=== PATIENT | female | born 1940 | race Caucasian/White ===

== ENCOUNTER 2016-05-16 22:05 | Inpatient (IN) ==
[2016-05-16] MEDS ORDERED: 0.9 % Sodium Chloride 1,000 ML IVC ONE (22:42)
[2016-05-16] MEDS ORDERED: Ondansetron 4 MG/2 ML VIAL IVP ONE (22:42)
--- NOTE | 2016-05-16 22:47 | Emergency Department Note ---
Disposition Clinical Impression: Abdominal pain with vomiting Disposition: Still a Patient Condition: Fair Referrals: NO,PCP [Primary Care Provider] - Forms: Work/School Release, ED Satisfaction Letter Abdominal Pain HPI - General Chief Complaint: ED Abdominal Pain Stated Complaint: Abd Pain/Chest Pain Time Seen by Provider: 05/16/16 22:42 Source: patient, EMS Limitations: no limitations Nursing Notes Reviewed: Yes Vital Signs Reviewed: Yes - History of Present Illness HPI Narrative: Patient to the emergency department complaining of abdominal pain and vomiting. Started today. States she is vomiting food contents. Denies any blood in it. [place]. Denies fever. Patient states she has a history of gastric bypass surgery 15 years ago. Also has a history of a cholecystectomy and an appendectomy. Pain Scale: 10 - Related Data Home Medications Medication Instructions Recorded Confirmed Albuterol Sulfate [Proair 2 puff IH DAILY PRN 05/26/15 05/26/15 Respiclick] Cyclobenzaprine HCl [Fexmid] 7.5 mg PO TID PRN 05/26/15 05/26/15 Docusate Sodium [Colace] 200 mg PO BID PRN 05/26/15 05/26/15 Ferrous Gluconate 324 mg PO QAM 05/26/15 05/26/15 Lisinopril [Zestril] 40 mg PO QAM 05/26/15 05/26/15 Montelukast [Singulair] 10 mg PO QPM 05/26/15 05/26/15 Omeprazole [PriLOSEC] 40 mg PO BID 05/26/15 05/26/15 Ondansetron [Zofran] 8 mg PO DAILY PRN 05/26/15 05/26/15 TraMADol [Ultram] 50 mg PO TID PRN 05/26/15 05/26/15 Trazodone HCl [Oleptro ER] 150 mg PO HS PRN 05/26/15 05/26/15 Allergies Allergy/AdvReac Type Severity Reaction Status Date / Time No Known Allergies Allergy Verified 02/21/15 09:37 All systems ED: reviewed and negative except as stated. Constitutional: Denies: fever Cardiovascular: Denies: chest pain Respiratory: Denies: dyspnea Gastrointestinal: Reports: abdominal pain, nausea, vomiting. Denies: diarrhea, hematemesis, melena, hematochezia Musculoskeletal: Denies: back pain, neck pain Abdominal Pain PMH - Past Medical History Medical history: Reports: cancer, GERD, hypertension, other Female Surgical History: Reports: knee replacement, orthopedic, other, other ( Gastric bypass) Psychiatric history: Reports: no psych history - Social History Smoking status: Never smoker Alcohol use: Reports: none Drug use: Reports: none Physical Exam Patient awake and alert. Uncomfortable. A moderate amount of epigastric tenderness. Dry cracked lips. - General Limitations: no limitations General appearance: alert, in no apparent distress - Head Head exam: atraumatic, normocephalic, normal inspection - Eye Eye exam: Present: normal appearance, PERRL, EOMI - ENT ENT exam: normal exam, normal oropharynx - Neck Neck exam: Present: normal inspection - Chest Chest inspection: Present: normal inspection, symmetric chest wall rise - Respiratory Respiratory exam: Present: normal lung sounds bilaterally - Cardiovascular Cardiovascular exam: Present: regular rate, normal rhythm, normal heart sounds - Abdominal Exam Abdominal exam: Present: soft, tenderness (Epigastric). Absent: distention - Neurological Exam Neurological exam: Present: alert, oriented X3, CN II-XII intact - Psychiatric Psychiatric exam: Present: normal affect, normal mood - Skin Skin exam: Present: warm, dry, intact Course Course Narrative: Patient uncomfortable. Nausea meds ordered. Abdominal labs with cardiac workup. CT. Patient will be signed out to police shift commander. Vital Signs Temperature 99.3 F 05/16/16 22:10 Pulse Rate 98 05/16/16 22:10 Respiratory Rate 18 05/16/16 22:10 Blood Pressure 162/111 05/16/16 22:10 O2 Sat by Pulse Oximetry 96 05/16/16 22:10 Temperature 99.3 F 05/16/16 22:10 Pulse Rate 98 05/16/16 22:10 Respiratory Rate 18 05/16/16 22:10 Blood Pressure 162/111 05/16/16 22:10 O2 Sat by Pulse Oximetry 96 05/16/16 22:10 Oxygen Delivery Oxygen Delivery Room Air
[2016-05-16] MEDS ORDERED: *HR* FentaNYL (PF) 100 MCG/2 ML VIAL IV ONE (22:55)
[2016-05-16 23:09] LABS: Basophils % 0.4 %; Eosinophils # 0.1 K/mcL (0.0-0.6); Hematocrit 41.6 % (35.3-44.9); Hemoglobin 13.5 g/dL (11.5-15.4); Immature Granulocytes % 0.2 % (0-4); Lymphocytes # 0.8 K/mcL (0.6-4.6); Lymphocytes % 9.6 %; Mean Corpuscular HGB Conc 32.5 g/dL (31.6-35.5); Mean Corpuscular Hemoglobin 27.6 pg (28.0-33.3); Mean Corpuscular Volume 84.9 fL (83.0-100.0); Mean Platelet Volume 9.4 fL (9.4-12.4); Monocytes # 0.6 K/mcL (0.0-1.3); Monocytes % 7.7 %; Neutrophils # 6.6 K/mcL (1.6-8.9); Platelet Count 233 K/mcL (140-400); Red Cell Distribution Width 13.9 % (11.5-14.5); Segmented Neutrophils % 81.1 %
[2016-05-16 23:26] LABS: Alanine Aminotransferase 7 Units/L (0-55); Albumin 3.7 g/dL (3.5-5.0); Alkaline Phosphatase 95 Units/L (38-126); Amylase 47 Units/L (25-125); Aspartate Amino Transferase 19 Units/L (5-34); BUN/Creatinine Ratio 20 (6-26); Bilirubin,Direct 0.2 mg/dL (0.0-0.5); Bilirubin,Indirect 0.3 mg/dL (0.0-1.2); Bilirubin,Total 0.5 mg/dL (0.2-1.2); Blood Urea Nitrogen 15 mg/dL (7-20); Calcium 9.2 mg/dL (8.6-10.8); Carbon Dioxide 25 mEq/L (19-29); Chloride 102 mEq/L (98-109); Globulin 3.6 g/dL (2.4-3.5); Glucose 133 mg/dL (70-99); Lipase 6 Units/L (8-78); Osmolality,Calculated 289 (280-300); Potassium 3.8 mEq/L (3.5-4.5); Sodium 138 mEq/L (136-145); Total Protein 7.3 g/dL (6.0-8.3); eGFR For African Americans > 60 (> 60); eGFR For Non-African Americans > 60 (> 60)
[2016-05-17] MEDS ORDERED: *HR* FentaNYL (PF) 100 MCG/2 ML VIAL IVP ONE (01:24)
--- NOTE | 2016-05-17 01:43 | Emergency Department Note ---
Disposition Clinical Impression: Abdominal pain with vomiting, Small bowel obstruction Disposition: Admitted As Inpatient Condition: Fair Time of Disposition: 01:52 Abdominal Pain HPI - General Chief Complaint: ED Abdominal Pain Stated Complaint: Abd Pain/Chest Pain Time Seen by Provider: 05/16/16 22:42 Source: patient, EMS Nursing Notes Reviewed: Yes Vital Signs Reviewed: Yes - History of Present Illness Pain Scale: 10 - Related Data Home Medications Medication Instructions Recorded Confirmed Albuterol Sulfate [Proair 2 puff IH DAILY PRN 05/26/15 05/26/15 Respiclick] Cyclobenzaprine HCl [Fexmid] 7.5 mg PO TID PRN 05/26/15 05/26/15 Docusate Sodium [Colace] 200 mg PO BID PRN 05/26/15 05/26/15 Ferrous Gluconate 324 mg PO QAM 05/26/15 05/26/15 Lisinopril [Zestril] 40 mg PO QAM 05/26/15 05/26/15 Montelukast [Singulair] 10 mg PO QPM 05/26/15 05/26/15 Omeprazole [PriLOSEC] 40 mg PO BID 05/26/15 05/26/15 Ondansetron [Zofran] 8 mg PO DAILY PRN 05/26/15 05/26/15 TraMADol [Ultram] 50 mg PO TID PRN 05/26/15 05/26/15 Trazodone HCl [Oleptro ER] 150 mg PO HS PRN 05/26/15 05/26/15 Allergies Allergy/AdvReac Type Severity Reaction Status Date / Time No Known Allergies Allergy Verified 02/21/15 09:37 Constitutional: Denies: fever Cardiovascular: Denies: chest pain Respiratory: Denies: dyspnea Gastrointestinal: Reports: abdominal pain, nausea, vomiting. Denies: diarrhea, hematemesis, melena, hematochezia Musculoskeletal: Denies: back pain, neck pain Abdominal Pain PMH - Past Medical History Medical history: Reports: cancer, GERD, hypertension, other Female Surgical History: Reports: knee replacement, orthopedic, other, other ( Gastric bypass) Psychiatric history: Reports: no psych history - Social History Smoking status: Never smoker Alcohol use: Reports: none Drug use: Reports: none Physical Exam - General Limitations: no limitations General appearance: alert, in no apparent distress Course Course Narrative: Do to shift change, I took over care of this patient from patient. Please see her there earlier documentation for details. Patient had presented with 2 day history of abdominal pain and vomiting of food contents. Her surgical history includes a gastric bypass. [facility] had ordered lab work and CT scan which is pending. Patient's pain nausea has been controlled - Reevaluation(s) Reevaluation #1: Patient mentioned return of pain and nausea. Analgesics and antiemetics ordered. Discussed results of CT scan with patient and family. Evidence for small bowel obstruction. I informed patient of likely surgery consult and admission to hospital. Patient had mentioned she is a patient of Dr. Juarez who she has seen 2 months ago for removal of a breast mass, and patient had requested Dr. Juarez. In anticipation of needed surgical consult prior to admission, Dr. Juarez was paged, and specified to admit patient to hospitalist and for him to be consulted. Time: 01:43 Reevaluation #2: Patient discussed and accepted by hospitalist Dr. Hall who agreed to accept patient. Time: 01:51 - Consultations Consultation #1: patient is a patient of Dr. Juarez. who was paged, and specified to admit patient to hospitalist and for him to be consulted. Vital Signs Temperature 99.3 F 05/16/16 22:10 Pulse Rate 98 05/16/16 22:10 Respiratory Rate 18 05/16/16 22:10 Blood Pressure 162/111 05/16/16 22:10 O2 Sat by Pulse Oximetry 96 05/16/16 22:10 Temperature 98.0 F 05/17/16 06:33 Pulse Rate 86 05/17/16 06:33 Respiratory Rate 16 05/17/16 06:33 Blood Pressure 142/84 05/17/16 06:33 O2 Sat by Pulse Oximetry 94 L 05/17/16 06:33 Oxygen Delivery Oxygen Delivery Room Air Abdominal Pain - Lab Data Lab results reviewed: Yes I reviewed the patient's lab results. Result diagrams: 05/16/16 23:01 05/16/16 23:01 Lab Results 05/16/16 05/16/16 05/16/16 Range/Units 23:01 23:01 23:01 WBC 8.2 (4.3-11.1) K/mcL RBC 4.90 (3.82-4.97) M/mcL Hgb 13.5 (11.5-15.4) g/dL Hct 41.6 (35.3-44.9) % MCV 84.9 (83.0-100.0) fL MCH 27.6 L (28.0-33.3) pg MCHC 32.5 (31.6-35.5) g/dL RDW 13.9 (11.5-14.5) % Plt Count 233 (140-400) K/mcL MPV 9.4 (9.4-12.4) fL Immature Gran % 0.2 (0-4) % Seg Neutrophils % 81.1 % Lymphocytes % 9.6 % Monocytes % 7.7 % Eosinophils % 1.0 % Basophils % 0.4 % Neutrophils # 6.6 (1.6-8.9) K/mcL Lymphocytes # 0.8 (0.6-4.6) K/mcL Monocytes # 0.6 (0.0-1.3) K/mcL Eosinophils # 0.1 (0.0-0.6) K/mcL Basophils # 0.0 (0.0-0.2) K/mcL Sodium 138 (136-145) mEq/L Potassium 3.8 (3.5-4.5) mEq/L Chloride 102 (98-109) mEq/L Carbon Dioxide 25 (19-29) mEq/L BUN 15 (7-20) mg/dL Creatinine 0.76 (0.57-1.11) mg/dL Est GFR ( Amer) > 60 (> 60) Est GFR (Non-Af Amer) > 60 (> 60) BUN/Creatinine Ratio 20 (6-26) Glucose 133 H (70-99) mg/dL Calculated Osmolality 289 (280-300) Lactic Acid 0.7 (0.5-2.2) mmol/L Calcium 9.2 (8.6-10.8) mg/dL Total Bilirubin 0.5 (0.2-1.2) mg/dL Direct Bilirubin 0.2 (0.0-0.5) mg/dL Indirect Bilirubin 0.3 (0.0-1.2) mg/dL AST 19 (5-34) Units/L ALT 7 (0-55) Units/L Alkaline Phosphatase 95 (38-126) Units/L Troponin I (0-0.03) ng/mL Serum Total Protein 7.3 (6.0-8.3) g/dL Albumin 3.7 (3.5-5.0) g/dL Globulin 3.6 H (2.4-3.5) g/dL Albumin/Globulin Ratio 1.0 L (1.1-2.2) Amylase 47 (25-125) Units/L Lipase 6 L (8-78) Units/L //17 Range/Units 23:01 WBC (4.3-11.1) K/mcL RBC (3.82-4.97) M/mcL Hgb (11.5-15.4) g/dL Hct (35.3-44.9) % MCV (83.0-100.0) fL MCH (28.0-33.3) pg MCHC (31.6-35.5) g/dL RDW (11.5-14.5) % Plt Count (140-400) K/mcL MPV (9.4-12.4) fL Immature Gran % (0-4) % Seg Neutrophils % % Lymphocytes % % Monocytes % % Eosinophils % % Basophils % % Neutrophils # (1.6-8.9) K/mcL Lymphocytes # (0.6-4.6) K/mcL Monocytes # (0.0-1.3) K/mcL Eosinophils # (0.0-0.6) K/mcL Basophils # (0.0-0.2) K/mcL Sodium (136-145) mEq/L Potassium (3.5-4.5) mEq/L Chloride (98-109) mEq/L Carbon Dioxide (19-29) mEq/L BUN (7-20) mg/dL Creatinine (0.57-1.11) mg/dL Est GFR ( Amer) (> 60) Est GFR (Non-Af Amer) (> 60) BUN/Creatinine Ratio (6-26) Glucose (70-99) mg/dL Calculated Osmolality (280-300) Lactic Acid (0.5-2.2) mmol/L Calcium (8.6-10.8) mg/dL Total Bilirubin (0.2-1.2) mg/dL Direct Bilirubin (0.0-0.5) mg/dL Indirect Bilirubin (0.0-1.2) mg/dL AST (5-34) Units/L ALT (0-55) Units/L Alkaline Phosphatase (38-126) Units/L Troponin I 0.01 (0-0.03) ng/mL Serum Total Protein (6.0-8.3) g/dL Albumin (3.5-5.0) g/dL Globulin (2.4-3.5) g/dL Albumin/Globulin Ratio (1.1-2.2) Amylase (25-125) Units/L Lipase (8-78) Units/L - Radiology Data Radiology results reviewed: Yes I reviewed the patient's radiology results. Attestation Statement - Attestation Attestation: For this encounter, I have reviewed the resident, WAIVER ANALYST, or PA documentation, treatment plan, and medical decision making; and I have had face to face time with this patient. 76-year-old female presents with acute episodes of nausea and vomiting and abdominal pain. Patient states she is unable to keep down any food or fluids. Vomited multiple times today described as nonbilious and nonbloody. Abdomen is distended and tympanic. Patient has history of multiple surgeries in the past. CT of the abdomen shows small bowel obstruction. Patient admitted to the hospital for further care and evaluation. PA spoke with surgeon who recommended admission to hospitalist
[2016-05-17] MEDS ORDERED: Naloxone 0.4 MG/ML INJ IVP PRN (01:50)
[2016-05-17] MEDS: Ondansetron 4 MG/2 ML VIAL IVP PRN ×4 (02:17→20:31)
--- NOTE | 2016-05-17 02:54 | Internal Med History&Physical ---
Date of Encounter: 05/17/16 Time of Encounter: 03:31 Assessment and Plan (1) Small bowel obstruction Current visit: Yes Status: Acute Patient presents with sudden onset abdominal pain associated with nausea and vomiting. She has a history of small bowel obstruction the past. Examination reveals hyperactive bowel sounds and tenderness to palpation in the right lumbar region. CT scan evidence of small bowel obstruction with a transition point in the right lower quadrant. Patient will be admitted to inpatient status. Expect the patient to stay in the hospital at least 2 midnights. Expected discharge disposition is to home. Patient is high risk due to possible need for surgical intervention if she does not respond to conservative management. Surgery consultation-Dr. burton was informed of the patient by the emergency room physician. Bowel rest. Intravenous fluids and proton pump inhibitor. Pain control and Zofran when necessary. (2) GERD (gastroesophageal reflux disease) Current visit: Yes Status: Chronic Proton pump inhibitor intravenous daily Qualifiers: Esophagitis presence: esophagitis presence not specified Qualified Code(s) : K21.9 - Gastro-esophageal reflux disease without esophagitis (3) HTN (hypertension) Current visit: Yes Status: Chronic Control blood pressure. Hold antihypertensives by mouth. If BP is uncontrolled, will consider hydralazine IV and/or clonidine patch. Qualifiers: Hypertension type: essential hypertension Qualified Code(s): I10 - Essential (primary) hypertension Internal Medicine - H&P: HPI Chief complaint: Abdominal pain Admitted From: Emergency Dept Plans for Post Hospital Care: Home History of present illness: Ms. Sexton is a 76 year old female with a history of gastric bypass surgery presented to the hospital due to abdominal pain. Patient states that she had sudden onset abdominal pain on Tuesday later in the day of 02/22 in intensity that is diffuse without any radiation. This was associated with nausea and she had an episode of emesis which was limited in quantity. She has not had a bowel movement in over 3 days. The pain has been constant in her abdomen. It was partly relieved by fentanyl that was given to her in the emergency room. She denies passing gas. Denies any chest pain, shortness of breath, cough or wheezing. Denies any fever or chills. Past Med Surg Social Fam HX - Past Medical History Attestation: Yes The following information was validated with the patient. Source: patient Medical history: cancer, GERD, hypertension, other Psychiatric history: no psych history - Past Surgical History Surgical History: appendectomy, breast surgery, cholecystectomy, hysterectomy, orthopedic, other (2 knee surgeries and left shoulder surgery), other - Social History Smoking Status: Never smoker Smokeless Tobacco Status: No Alcohol use: none Drug use: none - Family History Brother Family Member Ethnicity: Non- Living Status: Hx Family Cardiac Disorders: Yes Hx Family Respiratory Disorders: No Hx Family Cancer: Yes Hx Family GI Disorders: No Hx Family Endocrine Disorder: No Hx Family Neuromuscular Disorders: No Hx Family Neurologic Disorders: No Hx Family HEENT Disorders: No Hx Family Autoimmune Disorders: No Internal Medicine - H&P: Meds Albuterol Sulfate [Proair Respiclick] 2 puff IH DAILY PRN 05/26/15 [History] Cyclobenzaprine HCl [Fexmid] 7.5 mg PO TID PRN 05/26/15 [History] Docusate Sodium [Colace] 200 mg PO BID PRN 05/26/15 [History] Ferrous Gluconate 324 mg PO QAM 05/26/15 [History] Lisinopril [Zestril] 40 mg PO QAM 05/26/15 [History] Montelukast [Singulair] 10 mg PO QPM 05/26/15 [History] Omeprazole [PriLOSEC] 40 mg PO BID 05/26/15 [History] Ondansetron [Zofran] 8 mg PO DAILY PRN 05/26/15 [History] TraMADol [Ultram] 50 mg PO TID PRN 05/26/15 [History] Trazodone HCl [Oleptro ER] 150 mg PO HS PRN 05/26/15 [History] Allergies No Known Allergies Allergy (Verified 02/21/15 09:37) All Systems PM: A 10-system review of systems was performed and is negative for pertinent findings except as documented above in the HPI. Review of systems: 10 systems have been reviewed and are negative except as mentioned in the history of present illness - Constitutional Vitals: Temp Pulse Resp BP Pulse Ox 99.3 F 82 16 141/94 97 05/16/16 22:10 05/17/16 02:39 05/17/16 02:39 05/17/16 02:39 05/17/16 02:39 Exam: Gen.: Lying in bed. Mild distress. Eyes: Pupils equal, round and reactive to light. Extraocular muscles intact. ENT: Moist mucous membranes. No oropharyngeal erythema or discharge. Chest: Clear to auscultation bilaterally. No adventitious sounds present. CVS: First and second heart sounds present. No murmurs, rubs or gallops. Abdomen: Soft, tenderness to palpation in the right lumbar region without rebound tenderness, guarding or rigidity; nondistended. Bowel sounds hyperactive. No hepatosplenomegaly. Skin: No decubitus ulcers appreciated. ENTRY LEVEL MARKETING REPRESENTATIVE: No focal neuro deficits present. Psychiatric: Alert, awake and oriented to time, place and person. Lymphatic system: No lymphadenopathy appreciated Internal Med - H&P Results - Labs CBC & Chem 7: 05/16/16 23:01 05/16/16 23:01 - Diagnostic Studies CT scan - abdomen Status: image reviewed by me (SBO)
[2016-05-17] MEDS: Potassium Chloride 10 MEQ in D5% in 0.9% NACL 1,000 ML IVC SCH ×2 (04:07→16:42)
[2016-05-17 05:14] LABS: Hemoglobin A1C 5.7 %
[2016-05-17] MEDS: Pantoprazole 40 MG VIAL IVP SCH (08:46)
[2016-05-17] MEDS: *HR* HYDROmorphone (PF) 1 MG/ML SYRINGE IVP PRN ×3 (10:03→20:25)
--- NOTE | 2016-05-17 10:39 | Electrocardiograph Report ---
[facility] Test Date: 2016-05-16 Pat Name: Maria Esther Sexton Department: 103 Room: 3A56 Gender: F [employer] Management Technician: JUAN CARLOS : 1940 Requested By: Tabatha See Order Number: [id number] Reading MD: Arsalan Jones DO Measurements Intervals [place] Rate: 97 P: 48 CA: 154 QRS: -10 QRSD: 101 T: 20 QT: 366 QTc: 420 Interpretive Statements Sinus rhythm Nonspecific ST-T changes Electronically Signed On 05-17-16 10:38:38 EST by Arsalan Jones DO
--- NOTE | 2016-05-17 12:09 | General Surgery Consult Note ---
Date of Encounter: 05/17/16 Time of Encounter: 11:42 History of Present Illness Reason for consult: abdominal pain (Radiologic evidence SBO) Requesting physician: Homer Hall History of present illness: 76-year-old female admitted to [facility] after presenting to the emergency department last evening with abdominal pain and vomiting. Patient indicates symptoms started abruptly 05/15/16 and continued thru the following day prompting her to present to [facility] ED for further evaluation and possible treatment. The evaluation included bloodwork which was nondiagnostic, and a CT abdomen/pelvis which demonstrated dilated proximal small bowel with an apparent transition point proximal ileum/right lower quadrant. Patient presented with similar complaints 05/26/15, with similar CT findings but the symptoms abated without surgical intervention. A small bowel follow-through, 05/27/15, demonstrated persistent dilated loops of proximal small bowel but on the following day enteric contrast was seen in the left colon. As the patient did not wish any surgical intervention, and the acute symptoms resolved, the patient was discharged home 05/30/2015. The patient has not had any recurrent GI symptoms until 05/15/2016. Past medical history: Morbid obesity; Breast cancer; gastroesophageal reflux disease/PUD; hypertension; osteoarthritis with chronic joint pain Surgical history: Gastric bypass, appendectomy, right breast lumpectomy with follow-up radiation; cholecystectomy, bilateral knee TKR, right rotator cuff repair, left hand surgery and kidney stone removal Allergies: No known drug allergies Medications: Albuterol (pro-air) 2 puffs daily as needed Cyclobenzaprine 7.5 mg by mouth 3 times a day when necessary Docusate 200 mg by mouth twice a day when necessary Ferrous gluconate 324 mg by mouth every morning Lisinopril 40 mg by mouth every morning Singulair 10 mg by mouth every afternoon Omeprazole 40 mg by mouth twice a day Zofran 8 mg by mouth daily as needed for nausea or vomiting Tramadol 50 mg by mouth 3 times a day as needed for pain Trazodone 150 mg by mouth daily at bedtime when necessary Social history: Patient has never smoked, denies alcohol or illicit drug use Physical examination: Elderly, age-appropriate woman resting comfortably in her hospital bed. The patient indicates that she is feeling better since her presentation to the emergency department. Denies any recurrent nausea or vomiting but continues to have right lower quadrant abdominal tenderness. Patient is afebrile, 98.0; pulse 86, respirations 16, blood pressure 142/84. SPO2 on room air 94-97% Lungs: Clear to auscultation Cardiac: Regular rate, soft 1-2/6 systolic ejection murmur Abdomen: Tender right lower quadrant without distention. No appreciable intra-abdominal masses or rebound. Active bowel sounds. The patient indicates that she is passing flatus this morning. Extremities: No obvious clubbing cyanosis or edema. Impression: 76-year-old female admitted to [facility] after presenting to the emergency department with recurrent abdominal pain and nausea/vomiting. Patient has radiologic findings suggestive of a small bowel obstruction consistent with the patient's clinical presentation. These findings are similar to those for which the patient was admitted approx 1 year ago. The recurrent symptoms likely related to the pateint's prior gastric bypass with internal adhesions resulting in at least a partial SBO. The patient is feeling better and wishes to avoid surgery if possible. Plan: Allow clear liquids may resume usual home meds monitor for recurrent / worsening abdominal pain, N/V, abdominal distention. If symptoms worsen/recur then surgical intervention will be discussed. If symptoms resolve, will defer surgical intervention per the patient's wishes. Thank you for this consultation, I will follow along with you. Past Med Surg Social Fam HX - Past Medical History Medical history: cancer, GERD, hypertension, other Psychiatric history: no psych history - Past Surgical History Surgical History: appendectomy, breast surgery, cholecystectomy, hysterectomy, orthopedic, other (2 knee surgeries and left shoulder surgery), other - Social History Smoking Status: Never smoker Smokeless Tobacco Status: No Alcohol use: none Drug use: none - Family History Brother Family Member Ethnicity: Non- Living Status: Hx Family Cardiac Disorders: Yes Hx Family Respiratory Disorders: No Hx Family Cancer: Yes Hx Family GI Disorders: No Hx Family Endocrine Disorder: No Hx Family Neuromuscular Disorders: No Hx Family Neurologic Disorders: No Hx Family HEENT Disorders: No Hx Family Autoimmune Disorders: No Medications and Allergies Albuterol Sulfate [Proair Respiclick] 2 puff IH DAILY PRN 05/26/15 [History] Cyclobenzaprine HCl [Fexmid] 7.5 mg PO TID PRN 05/26/15 [History] Docusate Sodium [Colace] 200 mg PO BID PRN 05/26/15 [History] Ferrous Gluconate 324 mg PO QAM 05/26/15 [History] Lisinopril [Zestril] 40 mg PO QAM 05/26/15 [History] Montelukast [Singulair] 10 mg PO QPM 05/26/15 [History] Omeprazole [PriLOSEC] 40 mg PO BID 05/26/15 [History] Ondansetron [Zofran] 8 mg PO DAILY PRN 05/26/15 [History] TraMADol [Ultram] 50 mg PO TID PRN 05/26/15 [History] Trazodone HCl [Oleptro ER] 150 mg PO HS PRN 05/26/15 [History] Allergies No Known Allergies Allergy (Verified 02/21/15 09:37) Review of Systems All systems PM: A 10-system review of systems was performed and is negative for pertinent findings except as documented above in the HPI. General Surgery Exam Initial Vital Signs Temp Pulse Resp BP Pulse Ox 99.3 F 98 18 162/111 96 05/16/16 22:10 05/16/16 22:10 05/16/16 22:10 05/16/16 22:10 05/16/16 22:10 Exam Initial Vital Signs Temp Pulse Resp BP Pulse Ox 99.3 F 98 18 162/111 96 05/16/16 22:10 05/16/16 22:10 05/16/16 22:10 05/16/16 22:10 05/16/16 22:10 Results - Labs 05/16/16 23:01 05/16/16 23:01 Abnormal lab results MCH 27.6 pg (28.0-33.3) L 05/16/16 23:01 Glucose 133 mg/dL (70-99) H 05/16/16 23:01 POC Glucose 121 (58-89) H 05/17/16 07:43 Hemoglobin A1c 5.7 % (-5.6) H 05/17/16 03:40 Globulin 3.6 g/dL (2.4-3.5) H 05/16/16 23:01 Albumin/Globulin Ratio 1.0 (1.1-2.2) L 05/16/16 23:01 Lipase 6 Units/L (8-78) L 05/16/16 23:01 Diabetes panel 01/02/17 Range/Units 03:40 Hemoglobin A1c 5.7 H ( - 5.6) % All other labs normal. Consult Discharge Plan - Plan Referrals: Josep Whiteside DO [Primary Care Provider] -
[2016-05-17 12:23] LABS: Bilirubin,Urine Negative (Negative); Blood,Urine Negative (Negative); Clarity,Urine Clear (Clear); Color,Urine Yellow (Yellow); Glucose,Urine (UA) Normal (Normal); Ketones,Urine Negative (Negative); Leukocyte Esterase,Urine Negative (Negative); Nitrite,Urine Negative (Negative); PH,Urine 5.5 pH Units (5.0-8.0); Protein,Urine Negative (Neg-Trace); Specific Gravity,Urine > 1.030 (1.010-1.025); Urobilinogen,Urine Normal (Normal)
--- NOTE | 2016-05-17 17:55 | Internal Med Progress Note ---
Date of Encounter: 05/17/16 Time of Encounter: 11:00 - Assessment and plan (1) Abdominal pain with vomiting Current Visit: Yes Status: Acute Assessment and plan: Probably caused by small bowel obstruction. Will continue nothing by mouth, IV fluid, closely monitor patient. (2) Small bowel obstruction Current Visit: Yes Status: Acute Assessment and plan: Etiology is undetermined. Patient has history of multiple intra-abdominal surgery. Surgical consult called and saw patient. Patient is at high risk because she has small bowel obstruction, which are possibly need a surgical intervention. (3) HTN (hypertension) Current Visit: Yes Status: Chronic Assessment and plan: Medication is on hold because of nothing by mouth. BP is stable Qualifiers: Hypertension type: essential hypertension Qualified Code(s): I10 - Essential (primary) hypertension (4) DVT prophylaxis Current Visit: No Status: Acute Assessment and plan: EPCD - Time Spent With Patient Greater than 35 minutes - Subjective Interval history: Patient is a 76-year-old female admitted for small bowel obstruction. Past medical history is significant for similar small bowel obstruction before, bariatric surgery, and hysterectomy. Patient was seen and examined. This morning when I saw her she is comfortable without any acute distress. She told me she passed gas. She was given a clear liquid diet trial during lunch. She seems cannot tolerate diet and has worsened abdominal pain and the nausea in the afternoon. We will hold diet, keep IV fluid. Try to insert an NG tube but patient cannot tolerate. Surgical consult on case and appreciated. Will keep nothing by mouth, IV fluid, closely monitor patient's symptoms, possible need to try NG tube again or surgical intervention. - Constitutional Vitals: Temp Pulse Resp BP Pulse Ox 98.3 F 89 16 138/86 95 05/17/16 15:22 05/17/16 15:22 05/17/16 15:22 05/17/16 15:22 05/17/16 15:22 General appearance: Present: mild distress, A&O X 3, answers questions appropriately - Head Head exam: Present: atraumatic, normocephalic - Eye Eye exam: Present: PERRL, conjuntiva pink, sclera anicteric Pupils: Present: PERRL - Neck Neck exam general surgery: Present: supple, trachea midline. Absent: lymphadenopathy - Respiratory Respiratory exam: Present: CTAB. Absent: accessory muscle use, rales, rhonchi, wheezes - Cardiovascular Cardiovascular exam: Present: RRR, +S1, +S2. Absent: diastolic murmur, gallop, rubs, systolic murmur - GI/Abdominal GI/Abdominal exam: Present: normal bowel sounds, soft, tenderness, no peritoneal signs. Absent: distended - Extremities Exam Extremities exam: Present: warm, radial pulses palpable and symetrical. Absent : calf tenderness, cyanotic, pedal edema - Neurological Exam Neurological exam: Present: CN II-XII intact, oriented X3, no focal deficits. Absent: pronater drift, facial droop, speech deficit - Skin Skin exam: Present: dry, intact Internal Medicine: Result - Labs CBC & Chem 7: 05/16/16 23:01 05/16/16 23:01 Labs: Urine 05/17/16 Range/Units 12:00 Urine Color Yellow (Yellow) Urine Clarity Clear (Clear) Urine pH 5.5 (5.0-8.0) pH Units Ur Specific [place] > 1.030 H (1.010-1.025) Urine Protein Negative (Neg-Trace) mg/dL Urine Glucose (UA) Normal (Normal) mg/dL Consult Discharge Plan - Plan Referrals: Josep Whiteside DO [Primary Care Provider] -
[2016-05-18] MEDS: Ondansetron 4 MG/2 ML VIAL IVP PRN ×3 (02:39→10:49)
[2016-05-18] MEDS: *HR* HYDROmorphone (PF) 1 MG/ML SYRINGE IVP PRN ×10 (02:40→23:50)
[2016-05-18 06:11] LABS: Basophils % 0.3 %; Eosinophils # 0.1 K/mcL (0.0-0.6); Hematocrit 38.2 % (35.3-44.9); Immature Granulocytes % 0.7 % (0-4); Lymphocytes # 0.9 K/mcL (0.6-4.6); Lymphocytes % 14.4 %; Mean Corpuscular HGB Conc 31.4 g/dL (31.6-35.5); Mean Corpuscular Hemoglobin 27.4 pg (28.0-33.3); Mean Corpuscular Volume 87.2 fL (83.0-100.0); Monocytes # 0.6 K/mcL (0.0-1.3); Monocytes % 9.5 %; Neutrophils # 4.5 K/mcL (1.6-8.9); Platelet Count 226 K/mcL (140-400); Red Blood Count 4.38 M/mcL (3.82-4.97); Red Cell Distribution Width 14.2 % (11.5-14.5); Segmented Neutrophils % 74.1 %
[2016-05-18 06:35] LABS: BUN/Creatinine Ratio 16 (6-26); Blood Urea Nitrogen 9 mg/dL (7-20); Calcium 8.3 mg/dL (8.6-10.8); Carbon Dioxide 22 mEq/L (19-29); Chloride 111 mEq/L (98-109); Glucose 131 mg/dL (70-99); Osmolality,Calculated 290 (280-300); Potassium 3.9 mEq/L (3.5-4.5); Sodium 140 mEq/L (136-145); eGFR For African Americans > 60 (> 60); eGFR For Non-African Americans > 60 (> 60)
[2016-05-18] MEDS: Potassium Chloride 10 MEQ in D5% in 0.9% NACL 1,000 ML IVC SCH ×2 (06:35→17:04)
[2016-05-18] MEDS: Pantoprazole 40 MG VIAL IVP SCH (09:03)
--- NOTE | 2016-05-18 12:52 | General Surgery Progress Note ---
Date of Encounter: 05/18/16 Time of Encounter: 12:30 Subjective Patient reports: still having pain, nausea Narrative: General Surgery: The patient complaining of severe right lower quadrant abdominal pain, indicates that she is feeling poorly. She has been nauseated but has not vomited. She has not eaten and has received more ingested anything by mouth due to the abdominal pain. The patient remains afebrile, 97.4, pulse 86, respirations 16, blood pressure 165/90. SPO2 on 2 L per nasal cannula 97 and 99% Lungs: Clear to auscultation Abdomen: Tender in the right lower quadrant with a non-distinct mass; bowel sounds are active. Laboratories: White count 6.0, hemoglobin 12.0 with hematocrit 38.2 (the recent fall in hemoglobin and hematocrit is related to IV fluids) Platelet count 226,000; differential within normal limits. Electrolytes, BUN, creatinine are within normal limits. Impression: 76-year-old female with persisting right lower quadrant abdominal pain and nausea. Radiologic evidence of small bowel obstruction is noted as has occurred previously, but, the persistent symptoms dictate that this episode is not resolving. Treatment options including exploratory celiotomy versus continued IV fluids, pain control and a possible small bowel follow-through. The patient is indicated a willingness to proceed with surgery. Surgery is deemed necessary. Procedures been discussed with the patient. Risks include hemorrhage, infection, intra-abdominal abscess, injury to adjacent structures, respiratory Failure, cardiac dysrhythmia and possible SD. We discussed the potential for a bowel obstruction with resultant ileostomy or colostomy. The patient expressed understanding and consent for surgery was given. Objective Vital Signs - Last 8 Hours Temp Pulse Resp BP Pulse Ox 05/18/16 10:00 97.4 F L 86 16 165/90 99 05/18/16 06:24 97.9 F 93 16 160/90 97 Intake and Output 05/17/16 05/18/16 05/18/16 23:59 07:59 15:59 Intake Total 1005 / 1005 1000 / 1000 Output Total 100 / 100 100 / 100 100 / 100 Balance 905 / 905 900 / 900 -100 / -100 Intake: IV Fluids 1005 / 1005 1000 / 1000 KCl 10 MEQ In D5% And 0.9 1005 / 1005 1000 / 1000 % Nacl 1000 Ml 1,000 ML @ 75 mls/hr IVC .[id number] [facility]AD[facility] Rx#:[id number] Output: Urine 100 / 100 100 / 100 100 / 100 Other: Meal NPO Stool Size Smear Stool Consistency loose Stool Characteristics Mucoid Stool Color Yellow # Bowel Movements 1 Weight 52.481 kg Patient Weight 05/18/16 23:59 Weight 52.481 kg - Labs 05/18/16 05:06 05/18/16 05:06 Diabetes panel 05/18/16 Range/Units 05:06 Sodium 140 (136-145) mEq/L Potassium 3.9 (3.5-4.5) mEq/L Chloride 111 H (98-109) mEq/L Carbon Dioxide 22 (19-29) mEq/L BUN 9 (7-20) mg/dL Creatinine 0.55 L (0.57-1.11) mg/dL Glucose 131 H (70-99) mg/dL Calcium 8.3 L (8.6-10.8) mg/dL Calcium panel 05/18/16 Range/Units 05:06 Calcium 8.3 L (8.6-10.8) mg/dL Pituitary panel 05/18/16 Range/Units 05:06 Sodium 140 (136-145) mEq/L Potassium 3.9 (3.5-4.5) mEq/L Chloride 111 H (98-109) mEq/L Carbon Dioxide 22 (19-29) mEq/L BUN 9 (7-20) mg/dL Creatinine 0.55 L (0.57-1.11) mg/dL Glucose 131 H (70-99) mg/dL Calcium 8.3 L (8.6-10.8) mg/dL Adrenal panel 05/18/16 Range/Units 05:06 Sodium 140 (136-145) mEq/L Potassium 3.9 (3.5-4.5) mEq/L Chloride 111 H (98-109) mEq/L Carbon Dioxide 22 (19-29) mEq/L BUN 9 (7-20) mg/dL Creatinine 0.55 L (0.57-1.11) mg/dL Glucose 131 H (70-99) mg/dL Calcium 8.3 L (8.6-10.8) mg/dL - VTE Documentation of Mechanical Device: Intermittent pneumatic compression device Consult Discharge Plan - Plan Referrals: Josep Whiteside DO [Primary Care Provider] -
--- NOTE | 2016-05-18 13:11 | Anesthesia Evaluation PreOp ---
Date of Encounter: 05/18/16 Time of Encounter: 13:09 - Past History Planned Operation: Expl.Celiotomy RE: SBO Cardiac History: HTN (maintained on Lisinopril) Pulmonary History: Smoker (Never smoker), Asthma (maintaoined on Sinuglair) Other Medical History: GERD (maintained on Prilosec), Other (SBO this admission with hx of SBO. Hx of Breast Ca) Anesthesia History: No Prior Anesthetic Complications, Past Anesthesia (Gastric Bypass, Appy, Breast surgery, Darleen, Hyster, Knee surgery x 2, L-shoulder surgey ) Alcohol Use: none Drug use: none Medications and Allergies Albuterol Sulfate [Proair Respiclick] 2 puff IH DAILY PRN 05/26/15 [History] Docusate Sodium [Colace] 200 mg PO BID PRN 05/26/15 [History] Ferrous Gluconate 324 mg PO QAM 05/26/15 [History] Lisinopril [Zestril] 40 mg PO QAM 05/26/15 [History] Montelukast [Singulair] 10 mg PO QPM 05/26/15 [History] Omeprazole [PriLOSEC] 40 mg PO DAILY 05/26/15 [History] Ondansetron [Zofran] 4 mg PO BID PRN 05/26/15 [History] TraMADol [Ultram] 50 mg PO BID PRN 05/26/15 [History] Amoxicillin/Clavulanate [Augmentin] 875 mg PO BIDWM 05/17/16 [History] Cyanocobalamin (B-12) [Vitamin B12] 1,000 mcg SQ QMONTH 05/17/16 [History] Gabapentin [Neurontin] 100 mg PO HS 05/17/16 [History] Promethazine/Codeine [Phenergan/Codeine] 5 ml PO Q6HR PRN 05/17/16 [History] Allergies No Known Allergies Allergy (Verified 02/21/15 09:37) - Meds/Allergy Pre-op Review Medications Reviewed: Yes Allergies Reviewed: Yes Beta Blockers on Current Med List: No Anesthesia Results - Labs 05/18/16 05:06 05/18/16 05:06 Laboratory Results Impressions Abdomen/Pelvis CT 05/16/16 22:46 IMPRESSION: 1. Findings compatible with small bowel obstruction. Transition point in the right lower quadrant. 2. Stable biliary ductal dilation. D/ / 05/17/2016 07:11:13 Niko Mccarthy MD / boby Interpreting Provider: Niko Mccarthy MD X-Ray 05/18/16 09:52 IMPRESSION: Persistent small bowel obstruction. D/ / Deon Smith MD / Deon Smith MD Interpreting Provider: Deon Smith MD - Imaging EKG: image reviewed (97 bpm SR, minimal ST depression) Anesthesia Exam Vital Signs Temp Pulse Resp BP Pulse Ox 05/18/16 10:00 97.4 F L 86 16 165/90 99 05/18/16 06:24 97.9 F 93 16 160/90 97 05/18/16 03:21 98.1 F 86 12 130/82 94 L 05/17/16 23:33 97.8 F 87 16 145/89 95 05/17/16 20:15 97.5 F L 96 16 163/100 96 05/17/16 15:22 98.3 F 89 16 138/86 95 Intake and Output 05/17/16 05/18/16 05/18/16 23:59 07:59 15:59 Intake Total 1005 / 1005 1000 / 1000 Output Total 100 / 100 100 / 100 100 / 100 Balance 905 / 905 900 / 900 -100 / -100 Intake: IV Fluids 1005 / 1005 1000 / 1000 KCl 10 MEQ In D5% And 0.9 1005 / 1005 1000 / 1000 % Nacl 1000 Ml 1,000 ML @ 75 mls/hr IVC .[id number] [facility] Rx#:[id number] Output: Urine 100 / 100 100 / 100 100 / 100 Other: Meal NPO Stool Size Smear Stool Consistency loose Stool Characteristics Mucoid Stool Color Yellow # Bowel Movements 1 Weight 52.481 kg Patient Weight 05/18/16 23:59 Weight 52.481 kg - HEENT Pupil (Motor): Pupils equal, EOMI Mallampati: II Teeth: Edentulous Oral Opening: Greater than 3 - MINE WIRER LOC: Oriented MINE WIRER Motor: Normal RUE, Normal LUE, Normal RLE, Normal LLE, Normal Face MINE WIRER Sensory: Normal: RUE, LUE, RLE, LLE, Face - Cardiac Rhythm: Regular Murmur: None - Pulmonary Breath Sounds: bilateral Clear Respiratory Effort: Symmetrical Anesthesia Assess/Plan ASA Score: 3 (SBOm) Modified Kris Scale for Level of Consciousness: Cooperative, oriented, and tranquil Anesthetic Plan: General Monitoring Plan: Standard Monitors Recovery Plan: PACU Anes Supervising Prov Stmt: PT seen/evaluated, R&B Discussed, questions answered and consent obtained. Mireille Parekh MD
--- NOTE | 2016-05-18 13:39 | Internal Med Progress Note ---
Date of Encounter: 05/18/16 Time of Encounter: 10:30 - Assessment and plan (1) Small bowel obstruction Current Visit: Yes Status: Acute Assessment and plan: Acute small bowel obstruction. Repeat KUB x-ray done today shows persistent small bowel obstruction. Surgery on board. Plan for exploratory laparotomy. Surgery to take over care of the patient. We will be available for consultation. (2) HTN (hypertension) Current Visit: Yes Status: Chronic Assessment and plan: Blood pressure elevated today. Likely due to pain. Monitor blood pressure. Can use when necessary IV hydralazine for SBP greater than 160 as patient NPO. Qualifiers: Hypertension type: essential hypertension Qualified Code(s): I10 - Essential (primary) hypertension (3) DVT prophylaxis Current Visit: No Status: Acute - Subjective Interval history: Patient continues to have abdominal pain. Passing flatus but no bowel movements yet. No nausea or vomiting. Did not tolerate clear liquid diet. - Constitutional Vitals: Temp Pulse Resp BP Pulse Ox 97.4 F L 86 16 165/90 99 05/18/16 10:00 05/18/16 10:00 05/18/16 10:00 05/18/16 10:00 05/18/16 10:00 General appearance: Present: cooperative, A&O X 3, answers questions appropriately Exam: Moderate distress - Respiratory Respiratory exam: Present: CTAB. Absent: accessory muscle use, rales, rhonchi, wheezes - Cardiovascular Cardiovascular exam: Present: RRR, +S1, +S2. Absent: diastolic murmur, gallop, rubs, systolic murmur - GI/Abdominal GI/Abdominal exam: Present: diminished bowel sounds, soft, tenderness (In the epigastric and umbilical regions), no peritoneal signs - Extremities Exam Extremities exam: Present: warm, radial pulses palpable and symetrical. Absent : calf tenderness, cyanotic, pedal edema - Neurological Exam Neurological exam: Present: CN II-XII intact, oriented X3, no focal deficits. Absent: facial droop, speech deficit - Skin Skin exam: Present: dry, intact Internal Medicine: Result - Labs CBC & Chem 7: 05/18/16 05:06 05/18/16 05:06 Labs: Short CBC 05/18/16 Range/Units 05:06 WBC 6.0 (4.3-11.1) K/mcL Hgb 12.0 D (11.5-15.4) g/dL Hct 38.2 (35.3-44.9) % Plt Count 226 (140-400) K/mcL Neutrophils # 4.5 (1.6-8.9) K/mcL BMP 05/18/16 05:06 Sodium 140 Potassium 3.9 Chloride 111 H Carbon Dioxide 22 BUN 9 Creatinine 0.55 L Glucose 131 H Calcium 8.3 L - Impressions Impressions KUB X-Ray 05/18/16 09:52 IMPRESSION: Persistent small bowel obstruction. D/ / Deon Smith MD / Deon Smith MD Interpreting Provider: Deon Smith MD - VTE Documentation of Mechanical Device: Intermittent pneumatic compression device Consult Discharge Plan - Plan Referrals: Josep Whiteside DO [Primary Care Provider] - - Attending Attestation This document has been at least partially created by [employer] recognition technology by Dr. Díaz. Errors in grammar, wording or other phrases may exist. If errors are found after the documentation is signed, they will be addressed individually in the addendum section of this document when appropriate. Medical Decision Making - MDM Narrative Medical decision making narrative: High risk for complications due to persistent small bowel obstruction - Medical Records Medical records reviewed: Yes I reviewed the patient's medical records. - Lab Data Lab results reviewed: Yes I reviewed the patient's lab results. Result diagrams: 05/18/16 05:06 05/18/16 05:06 Lab Results 05/17/16 05/17/16 05/17/16 Range/Units 03:40 07:43 11:37 WBC (4.3-11.1) K/mcL RBC (3.82-4.97) M/mcL Hgb (11.5-15.4) g/dL Hct (35.3-44.9) % MCV (83.0-100.0) fL MCH (28.0-33.3) pg MCHC (31.6-35.5) g/dL RDW (11.5-14.5) % Plt Count (140-400) K/mcL MPV (9.4-12.4) fL Immature Gran % (0-4) % Seg Neutrophils % % Lymphocytes % % Monocytes % % Eosinophils % % Basophils % % Neutrophils # (1.6-8.9) K/mcL Lymphocytes # (0.6-4.6) K/mcL Monocytes # (0.0-1.3) K/mcL Eosinophils # (0.0-0.6) K/mcL Basophils # (0.0-0.2) K/mcL Sodium (136-145) mEq/L Potassium (3.5-4.5) mEq/L Chloride (98-109) mEq/L Carbon Dioxide (19-29) mEq/L BUN (7-20) mg/dL Creatinine (0.57-1.11) mg/dL Est GFR ( Amer) (> 60) Est GFR (Non-Af Amer) (> 60) BUN/Creatinine Ratio (6-26) Glucose (70-99) mg/dL POC Glucose 121 H 113 H (58-89) Est Mean Plasma Glucose 117 mg/dl Hemoglobin A1c 5.7 H ( - 5.6) % Calculated Osmolality (280-300) Calcium (8.6-10.8) mg/dL Prealbumin (16.0-38.0) mg/dL Urine Color (Yellow) Urine Clarity (Clear) Urine pH (5.0-8.0) pH Units Ur Specific [place] (1.010-1.025) Urine Protein (Neg-Trace) mg/dL Urine Glucose (UA) (Normal) mg/dL Urine Ketones (Negative) mg/dL Urine Blood (Negative) Urine Nitrite (Negative) Urine Bilirubin (Negative) Urine Urobilinogen (Normal) mg/dL Ur Leukocyte Esterase (Negative) Ur Culture Indicated? (NO) 05/17/16 05/18/16 05/18/16 Range/Units 12:00 05:06 05:06 WBC 6.0 (4.3-11.1) K/mcL RBC 4.38 (3.82-4.97) M/mcL Hgb 12.0 D (11.5-15.4) g/dL Hct 38.2 (35.3-44.9) % MCV 87.2 (83.0-100.0) fL MCH 27.4 L (28.0-33.3) pg MCHC 31.4 L (31.6-35.5) g/dL RDW 14.2 (11.5-14.5) % Plt Count 226 (140-400) K/mcL MPV 10.0 (9.4-12.4) fL Immature Gran % 0.7 (0-4) % Seg Neutrophils % 74.1 % Lymphocytes % 14.4 % Monocytes % 9.5 % Eosinophils % 1.0 % Basophils % 0.3 % Neutrophils # 4.5 (1.6-8.9) K/mcL Lymphocytes # 0.9 (0.6-4.6) K/mcL Monocytes # 0.6 (0.0-1.3) K/mcL Eosinophils # 0.1 (0.0-0.6) K/mcL Basophils # 0.0 (0.0-0.2) K/mcL Sodium (136-145) mEq/L Potassium (3.5-4.5) mEq/L Chloride (98-109) mEq/L Carbon Dioxide (19-29) mEq/L BUN (7-20) mg/dL Creatinine (0.57-1.11) mg/dL Est GFR ( Amer) (> 60) Est GFR (Non-Af Amer) (> 60) BUN/Creatinine Ratio (6-26) Glucose (70-99) mg/dL POC Glucose (58-89) Est Mean Plasma Glucose mg/dl Hemoglobin A1c ( - 5.6) % Calculated Osmolality (280-300) Calcium (8.6-10.8) mg/dL Prealbumin 11.0 L (16.0-38.0) mg/dL Urine Color Yellow (Yellow) Urine Clarity Clear (Clear) Urine pH 5.5 (5.0-8.0) pH Units Ur Specific [place] > 1.030 H (1.010-1.025) Urine Protein Negative (Neg-Trace) mg/dL Urine Glucose (UA) Normal (Normal) mg/dL Urine Ketones Negative (Negative) mg/dL Urine Blood Negative (Negative) Urine Nitrite Negative (Negative) Urine Bilirubin Negative (Negative) Urine Urobilinogen Normal (Normal) mg/dL Ur Leukocyte Esterase Negative (Negative) Ur Culture Indicated? NO (NO) 05/18/16 Range/Units 05:06 WBC (4.3-11.1) K/mcL RBC (3.82-4.97) M/mcL Hgb (11.5-15.4) g/dL Hct (35.3-44.9) % MCV (83.0-100.0) fL MCH (28.0-33.3) pg MCHC (31.6-35.5) g/dL RDW (11.5-14.5) % Plt Count (140-400) K/mcL MPV (9.4-12.4) fL Immature Gran % (0-4) % Seg Neutrophils % % Lymphocytes % % Monocytes % % Eosinophils % % Basophils % % Neutrophils # (1.6-8.9) K/mcL Lymphocytes # (0.6-4.6) K/mcL Monocytes # (0.0-1.3) K/mcL Eosinophils # (0.0-0.6) K/mcL Basophils # (0.0-0.2) K/mcL Sodium 140 (136-145) mEq/L Potassium 3.9 (3.5-4.5) mEq/L Chloride 111 H (98-109) mEq/L Carbon Dioxide 22 (19-29) mEq/L BUN 9 (7-20) mg/dL Creatinine 0.55 L (0.57-1.11) mg/dL Est GFR ( Amer) > 60 (> 60) Est GFR (Non-Af Amer) > 60 (> 60) BUN/Creatinine Ratio 16 (6-26) Glucose 131 H (70-99) mg/dL POC Glucose (58-89) Est Mean Plasma Glucose mg/dl Hemoglobin A1c ( - 5.6) % Calculated Osmolality 290 (280-300) Calcium 8.3 L (8.6-10.8) mg/dL Prealbumin (16.0-38.0) mg/dL Urine Color (Yellow) Urine Clarity (Clear) Urine pH (5.0-8.0) pH Units Ur Specific [place] (1.010-1.025) Urine Protein (Neg-Trace) mg/dL Urine Glucose (UA) (Normal) mg/dL Urine Ketones (Negative) mg/dL Urine Blood (Negative) Urine Nitrite (Negative) Urine Bilirubin (Negative) Urine Urobilinogen (Normal) mg/dL Ur Leukocyte Esterase (Negative) Ur Culture Indicated? (NO) - Radiology Data Radiology results reviewed: Yes I reviewed the patient's radiology results.
[2016-05-18] MEDS ORDERED: *HR* Rocuronium Bromide 50 MG/5 ML VIAL ONE (14:07)
[2016-05-18] MEDS ORDERED: *HR* Remifentanil 2 MG VIAL IVP ONE (14:07)
[2016-05-18] MEDS ORDERED: *HR* Midazolam HCl 2 MG/2 ML VIAL ONE (14:07)
[2016-05-18] MEDS ORDERED: Lidocaine -MPF 2% 2 ML VIAL ONE (14:07)
[2016-05-18] MEDS ORDERED: *HR* Propofol 200 MG/20 ML VIAL IVP ONE (14:07)
[2016-05-18] MEDS ORDERED: *HR* Succinylcholine 200 MG/10 ML VIAL IVP ONE (14:23)
[2016-05-18] MEDS ORDERED: Bupivacaine/EPI 1:200k 0.5%PF 30 ML VIAL ONE (14:34)
[2016-05-18] MEDS ORDERED: Ondansetron 4 MG/2 ML VIAL ONE ×2 (14:37→15:34)
[2016-05-18] MEDS ORDERED: Neostigmine Methylsulfate 3 MG/3 ML SYRINGE ONE (14:37)
[2016-05-18] MEDS ORDERED: *HR* HYDROmorphone 2 MG/ML SYRINGE ONE (14:38)
[2016-05-18] MEDS: *HR* Labetalol 20 MG/4 ML SYRINGE IVP PRN ×3 (15:20→15:50)
--- NOTE | 2016-05-18 15:21 | Operative Note ---
Date of procedure: 05/18/16 Pre-op diagnosis: SBO Post-op diagnosis: same Procedure: Exploratory celiotomy, small bowel resection with stapled enteroenterostomy, release of small bowel obstruction Complications: None apparent Anesthesia: GETA Local Anesthetics: 0.5% Sensorcaine HCL with Epinephrine 1:200,000 SubQ (cc) ( 30 mL) Surgeon: Jer Juarez Estimated blood loss (cc): 200 IV fluids (cc): 1,200 Specimen: segment small bowel Condition: stable Disposition: PACU Procedure in Detail: The patient was brought to the operating room where she was placed supine upon the operating room table. The patient was appropriately identified, then intubated and anesthetized under the supervision of Dr. Chapin Garza. The abdomen was prepped and draped in usual sterile fashion. An indistinct mass was palpable in the right lower quadrant. The patient was appropriately identified as to person and procedure. The accuracy of this information was confirmed by the procedure team. Once this was accomplished, a midline incision was made from umbilicus to pubis. Incision was stented to the fascia. Bleeding points were controlled with electrocautery. The fascia was divided along the linea alba allowing atraumatic entry into the abdominal cavity. Dilated loops of small bowel were immediately encountered. These loops were followed proximally to the jejunojejunostomy from a previous gastric bypass with no abnormalities encountered. The small bowel was then followed distally where a small bowel obstruction related to an internal hernia was encountered. The bowel obstruction involved the proximal ileum. The more distal ileum was fixed in the pelvis due to adhesions and a small band of tissue traversing the pelvis. The adhesions were sharply dissected and the band of tissue divided with the aid of the [employer]ien Impact Dissector. Approximately a 1 cm segment of small bowel was stenotic related to these adhesions. There was considerable mesenteric bleeding from this mobilized segment requiring suture ligature using interrupted 3-0 silk. The stenotic segment was resected using an Ethicon 75 mm linear stapler. A stapled [id number], functional end to end enteroenterostomy was then completed without difficulty. The open ends of the approximately and small bowel were stapled with a Ethicon [place] 60 mm stapler. The small bowel defect was closed with interrupted 3-0 silk. Hemostasis was deemed adequate. The stapled enteroenterostomy was patent with small bowel fluid traversing the anastomosis into the distal, previously decompressed small bowel. The small bowel and the anastomosis was again examined and found to be intact. The small bowel was returned to a Lizzie usual anatomic location and the abdominal wall was closed. The fascia was closed in a single layer using interrupted [id number] 0 Vicryl. This fascial layer was infiltrated with several milliliters of 0.5% bupivacaine with 1-200,000 units epinephrine. The subcutaneous tissues were approximated with running 3-0 Vicryl. The skin edges were infiltrated with the bupivacaine with epinephrine solution and approximated with cata. Dry sterile gauzedressing was placed. The patient was taken to recovery in stable condition. Needle, sponge, and instrument counts were correct at the close of the case. Total volume of 0.5% bupivacaine with 1-200,000 units epinephrine used during this procedure, 30 mL.
[2016-05-18] MEDS ORDERED: Ondansetron 4 MG/2 ML VIAL IVP PRN (15:24)
[2016-05-18] MEDS ORDERED: *HR* Labetalol 100 MG/20 ML MDV ONE ×2 (15:26→15:33)
[2016-05-18] MEDS ORDERED: *HR* Promethazine 25 MG/ML VIAL IVP PRN (15:35)
--- NOTE | 2016-05-18 16:14 | Anesthesia Evaluation Post Op ---
Date of Encounter: 05/18/16 Time of Encounter: 16:07 - Vital Signs Vital Signs: Vital Signs/O2 Sat, Most Current Temp Pulse Resp BP Pulse Ox 99.0 F 83 17 161/97 98 05/18/16 16:04 05/18/16 16:04 05/18/16 16:04 05/18/16 16:04 05/18/16 16:04 - Lungs Lungs: Clear Ascult./Percussion - Airway Airway: Non-obstructed - Cardiovascular Regular Rate - Mental Status Mental Status: Asleep with brisk response to light stimulation - Pain Pain Scale: 7 (states 7 and then sleeps) Pain Scale used: Numeric (1 - 10) - Nausea Vomiting Nausea Vomiting: Not Present - Hydration Hydration: NPO, Has not voided - Discharge PostOp Status: Transfer Patient to floor
[2016-05-18] MEDS ORDERED: Acetaminophen IV 1,000 MG/100 ML INFUS..BTL IVPB SCH (16:45)
[2016-05-18] MEDS ORDERED: Naloxone 0.4 MG/ML INJ IVP PRN (16:45)
[2016-05-18] MEDS: Albuterol 2.5 MG/3 ML NEBULIZER IH SCH ×2 (17:38→21:52)
[2016-05-18] MEDS: Acetaminophen IV 1,000 MG/100 ML INFUS..BTL IVPB SCH (21:23)
[2016-05-19] MEDS: Potassium Chloride 10 MEQ in D5% in 0.9% NACL 1,000 ML IVC SCH ×2 (03:33→11:04)
[2016-05-19] MEDS: *HR* HYDROmorphone (PF) 1 MG/ML SYRINGE IVP PRN ×8 (03:34→23:00)
[2016-05-19] MEDS: Albuterol 2.5 MG/3 ML NEBULIZER IH SCH ×4 (03:39→20:31)
[2016-05-19] MEDS: Ondansetron 4 MG/2 ML VIAL IVP PRN ×4 (03:56→20:25)
[2016-05-19 06:52] LABS: Basophils % 0.1 %; Hematocrit 35.5 % (35.3-44.9); Hemoglobin 11.5 g/dL (11.5-15.4); Immature Granulocytes % 0.3 % (0-4); Lymphocytes # 0.6 K/mcL (0.6-4.6); Lymphocytes % 5.9 %; Mean Corpuscular HGB Conc 32.4 g/dL (31.6-35.5); Mean Corpuscular Hemoglobin 28.5 pg (28.0-33.3); Mean Corpuscular Volume 87.9 fL (83.0-100.0); Mean Platelet Volume 9.5 fL (9.4-12.4); Monocytes # 0.9 K/mcL (0.0-1.3); Neutrophils # 8.4 K/mcL (1.6-8.9); Platelet Count 223 K/mcL (140-400); Red Blood Count 4.04 M/mcL (3.82-4.97); Red Cell Distribution Width 14.4 % (11.5-14.5); Segmented Neutrophils % 84.7 %
[2016-05-19 07:04] LABS: BUN/Creatinine Ratio 20 (6-26); Blood Urea Nitrogen 13 mg/dL (7-20); Calcium 8.4 mg/dL (8.6-10.8); Carbon Dioxide 25 mEq/L (19-29); Chloride 107 mEq/L (98-109); Glucose 186 mg/dL (70-99); Osmolality,Calculated 291 (280-300); Potassium 3.9 mEq/L (3.5-4.5); Sodium 138 mEq/L (136-145); eGFR For African Americans > 60 (> 60); eGFR For Non-African Americans > 60 (> 60)
[2016-05-19] MEDS: Acetaminophen IV 1,000 MG/100 ML INFUS..BTL IVPB SCH ×4 (07:52→22:29)
[2016-05-19] MEDS: Lisinopril 20 MG TABLET PO SCH (09:21)
[2016-05-19] MEDS: Pantoprazole 40 MG VIAL IVP SCH (09:21)
[2016-05-19] MEDS ORDERED: Potassium Chloride 10 MEQ in D5% in 0.9% NACL 1,000 ML IVC SCH (11:49)
--- NOTE | 2016-05-19 11:56 | General Surgery Progress Note ---
Date of Encounter: 05/19/16 Time of Encounter: 11:49 Subjective Patient reports: feels better, still having pain Narrative: General Surgery - POD #1 - patient indicates that she is feeling better, she is still having pain but it is "different". No nausea or vomiting. Patient is afebrile, 98.3; pulse 88 and 93, respirations 16-18, blood pressure 123/75. SPO2 on 2 L/m nasal cannula 95-97% Lungs: Clear; no obvious abdominal pain with deep inspiration Cardiac: Regular rate; stable systolic murmur Abdomen: Soft with active bowel sounds, moderate incisional pain as expected. Dressing removed/The incision is clean and dry. Skin edges well approximated no obvious fascial defects. Patient indicates that she has passed flatus. Laboratories: White count 9.9, hemoglobin 11.5, hematocrit 35.5, platelet count 223,000 Electrolytes, BUN, creatinine within normal limits. Impression: Postoperative day 1, status post exploratory celiotomy with release of small bowel obstruction related to internal adhesions/hernia. Patient doing well. Aceptable post op status. Will allow clears though patient cautioned against excessive intake. History of breast cancer - stable History of GERD/PUD - stable; continue PPI Hypertension - controlled Arthritis with chronic joint pain - unchanged Objective Vital Signs - Last 8 Hours Temp Pulse Resp BP Pulse Ox 05/19/16 11:00 98.3 F 93 16 123/75 97 05/19/16 07:00 97.9 F 88 18 112/69 95 Intake and Output 05/18/16 05/19/16 05/19/16 23:59 07:59 15:59 Intake Total 200 / 200 1184 / 1184 1442 / 1442 Output Total 150 / 150 300 / 300 100 / 100 Balance 50 / 50 884 / 884 1342 / 1342 Intake: IV Fluids 200 / 200 1184 / 1184 1442 / 1442 KCl 10 MEQ In D5% And 0.9 1184 / 1184 337 / 337 % Nacl 1000 Ml 1,000 ML @ 75 mls/hr IVC .[id number] [facility] Rx#:[id number] Ofirmev 1,000 mg In 100 200 / 200 100 / 100 ml @ 400 mls/hr IVPB Q6H [facility] Rx#:[id number] Oral 0 / 0 0 / 0 Output: Urine 150 / 150 300 / 300 100 / 100 Other: # Voids 1 Weight 52.4 kg Blood Glucose* 175 157 123 Patient Weight 05/19/16 23:59 Weight 52.4 kg - Labs 05/19/16 06:44 05/19/16 06:44 Diabetes panel 05/19/16 Range/Units 06:44 Sodium 138 (136-145) mEq/L Potassium 3.9 (3.5-4.5) mEq/L Chloride 107 (98-109) mEq/L Carbon Dioxide 25 (19-29) mEq/L BUN 13 (7-20) mg/dL Creatinine 0.65 (0.57-1.11) mg/dL Glucose 186 H (70-99) mg/dL Calcium 8.4 L (8.6-10.8) mg/dL Calcium panel 05/19/16 Range/Units 06:44 Calcium 8.4 L (8.6-10.8) mg/dL Pituitary panel 05/19/16 Range/Units 06:44 Sodium 138 (136-145) mEq/L Potassium 3.9 (3.5-4.5) mEq/L Chloride 107 (98-109) mEq/L Carbon Dioxide 25 (19-29) mEq/L BUN 13 (7-20) mg/dL Creatinine 0.65 (0.57-1.11) mg/dL Glucose 186 H (70-99) mg/dL Calcium 8.4 L (8.6-10.8) mg/dL Adrenal panel 05/19/16 Range/Units 06:44 Sodium 138 (136-145) mEq/L Potassium 3.9 (3.5-4.5) mEq/L Chloride 107 (98-109) mEq/L Carbon Dioxide 25 (19-29) mEq/L BUN 13 (7-20) mg/dL Creatinine 0.65 (0.57-1.11) mg/dL Glucose 186 H (70-99) mg/dL Calcium 8.4 L (8.6-10.8) mg/dL - VTE Documentation of Mechanical Device: Intermittent pneumatic compression device Consult Discharge Plan - Plan Referrals: Jer Juarez MD [Non-Partnered Physician] -
[2016-05-20] MEDS: *HR* HYDROmorphone (PF) 1 MG/ML SYRINGE IVP PRN ×10 (01:04→19:49)
[2016-05-20] MEDS: Acetaminophen IV 1,000 MG/100 ML INFUS..BTL IVPB SCH ×2 (04:12→10:46)
[2016-05-20] MEDS: Albuterol 2.5 MG/3 ML NEBULIZER IH SCH ×4 (04:24→21:08)
[2016-05-20] MEDS: Lisinopril 20 MG TABLET PO SCH (08:06)
[2016-05-20] MEDS: Ondansetron 4 MG/2 ML VIAL IVP PRN ×3 (08:06→20:46)
[2016-05-20] MEDS: Pantoprazole 40 MG VIAL IVP SCH (08:06)
[2016-05-20 11:41] LABS: Basophils % 0.3 %; Eosinophils # 0.1 K/mcL (0.0-0.6); Eosinophils % 0.9 %; Hematocrit 35.4 % (35.3-44.9); Hemoglobin 11.3 g/dL (11.5-15.4); Immature Granulocytes % 0.4 % (0-4); Lymphocytes # 0.8 K/mcL (0.6-4.6); Lymphocytes % 7.6 %; Mean Corpuscular HGB Conc 31.9 g/dL (31.6-35.5); Mean Corpuscular Hemoglobin 27.6 pg (28.0-33.3); Mean Corpuscular Volume 86.6 fL (83.0-100.0); Mean Platelet Volume 9.7 fL (9.4-12.4); Monocytes # 0.7 K/mcL (0.0-1.3); Monocytes % 7.1 %; Neutrophils # 8.4 K/mcL (1.6-8.9); Platelet Count 241 K/mcL (140-400); Red Blood Count 4.09 M/mcL (3.82-4.97); Red Cell Distribution Width 14.4 % (11.5-14.5); Segmented Neutrophils % 83.7 %
[2016-05-20] MEDS ORDERED: 0.9 % Sodium Chloride 1,000 ML IVC SCH (11:45)
[2016-05-20] MEDS ORDERED: 0.9 % Sodium Chloride 1,000 ML ONE (11:50)
[2016-05-20 11:54] LABS: Alanine Aminotransferase 9 Units/L (0-55); Albumin 2.7 g/dL (3.5-5.0); Albumin/Globulin Ratio 0.8 (1.1-2.2); Alkaline Phosphatase 70 Units/L (38-126); Aspartate Amino Transferase 21 Units/L (5-34); BUN/Creatinine Ratio 27 (6-26); Bilirubin,Total 1.3 mg/dL (0.2-1.2); Blood Urea Nitrogen 16 mg/dL (7-20); Calcium 8.6 mg/dL (8.6-10.8); Carbon Dioxide 24 mEq/L (19-29); Chloride 105 mEq/L (98-109); Globulin 3.3 g/dL (2.4-3.5); Glucose 122 mg/dL (70-99); Osmolality,Calculated 286 (280-300); Potassium 3.3 mEq/L (3.5-4.5); Sodium 137 mEq/L (136-145); eGFR For African Americans > 60 (> 60); eGFR For Non-African Americans > 60 (> 60)
[2016-05-20] MEDS ORDERED: Amiodarone Premix 360 MG/200 ML BAG IVC ONE (12:55)
[2016-05-20] MEDS ORDERED: Amiodarone Premix 150 MG/100 ML BAG IVPB ONE (12:55)
[2016-05-20] MEDS ORDERED: Amiodarone Premix 360 MG/200 ML BAG IVC SCH (13:00)
--- NOTE | 2016-05-20 13:08 | General Surgery Progress Note ---
Date of Encounter: 05/20/16 Time of Encounter: 12:45 Subjective Patient reports: still having pain (atrial fibrillation with RVR) Narrative: General Surgery: POD #2 - events of this morning noted; patient became acutely tachycardic as high as 190 and was ultimately transferred to ICU for continued care and management. Despite the severe tachycardia blood pressure has remained essentially stable, 130/82; respiratory rate 16-20; SPO2 on 2 L/m nasal cannula 95-99%. The patient has remained afebrile since surgery. Laboratories: White count 10.0, hemoglobin 11.3 with hematocrit 35.4; platelet count 241,000. Electrolytes notable for potassium 3.3 otherwise within normal limits including BUN and creatinine. On examination: Patient is awake and alert; she is complaining of incisional pain but does not acknowledge any increase in pain overnight. Lungs: Clear to auscultation Heart rate is rapid, currently 145 bpm, irregular Abdomen: Soft with enrique-incisional tenderness as expected; no detected peritoneal signs. Bowel sounds present. Midline incision is clean and dry. Impression: Atrial fibrillation with RVR. Cardizem administered. Patient transferred to ICU. Amiodarone apparently to be initiated per Critical Care team. Postoperative day 2 - status post exploratory celiotomy with small bowel resection and stapled enteroenterostomy; release of small bowel obstruction No obvious peritoneal signs but the patient warrants continued intensive monitoring and serial abdominal exams Hypokalemia - oral and IV supplements ordered History of hypertension - BP has been stable/controlled Morbid obesity - status post gastric bypass in the remote past History breast cancer - status post right breast lumpectomy with adjuvant radiation. Objective Vital Signs - Last 8 Hours Temp Pulse Resp BP Pulse Ox 05/20/16 11:30 182 16 108/71 95 05/20/16 10:54 98.2 F 130 20 130/82 97 05/20/16 09:57 18 99 05/20/16 09:39 98.3 F 120 16 140/85 99 05/20/16 07:55 97.9 F 92 18 163/94 98 Intake and Output 05/19/16 05/20/16 05/20/16 23:59 07:59 15:59 Intake Total 356 / 356 200 / 200 805 / 805 Output Total 150 / 150 300 / 300 Balance 206 / 206 -100 / -100 805 / 805 Intake: IV Fluids 356 / 356 100 / 100 805 / 805 KCl 10 MEQ In D5% And 0.9 156 / 156 705 / 705 % Nacl 1000 Ml 1,000 ML @ 60 mls/hr IVC .[id number] [facility] Rx#:[id number] Ofirmev 1,000 mg In 100 200 / 200 100 / 100 100 / 100 ml @ 400 mls/hr IVPB Q6H [facility] Rx#:[id number] Oral 0 / 0 100 / 100 Output: Urine 150 / 150 300 / 300 Other: Meal Breakfast Percent of Meal Consumed 0% - Labs 05/20/16 11:33 05/20/16 11:33 Diabetes panel 05/20/16 Range/Units 11:33 Sodium 137 (136-145) mEq/L Potassium 3.3 L (3.5-4.5) mEq/L Chloride 105 (98-109) mEq/L Carbon Dioxide 24 (19-29) mEq/L BUN 16 (7-20) mg/dL Creatinine 0.60 (0.57-1.11) mg/dL Glucose 122 H (70-99) mg/dL Calcium 8.6 (8.6-10.8) mg/dL AST 21 (5-34) Units/L ALT 9 (0-55) Units/L Alkaline Phosphatase 70 (38-126) Units/L Albumin 2.7 L (3.5-5.0) g/dL Calcium panel 05/20/16 Range/Units 11:33 Calcium 8.6 (8.6-10.8) mg/dL Albumin 2.7 L (3.5-5.0) g/dL Pituitary panel 05/20/16 Range/Units 11:33 Sodium 137 (136-145) mEq/L Potassium 3.3 L (3.5-4.5) mEq/L Chloride 105 (98-109) mEq/L Carbon Dioxide 24 (19-29) mEq/L BUN 16 (7-20) mg/dL Creatinine 0.60 (0.57-1.11) mg/dL Glucose 122 H (70-99) mg/dL Calcium 8.6 (8.6-10.8) mg/dL Adrenal panel 05/20/16 Range/Units 11:33 Sodium 137 (136-145) mEq/L Potassium 3.3 L (3.5-4.5) mEq/L Chloride 105 (98-109) mEq/L Carbon Dioxide 24 (19-29) mEq/L BUN 16 (7-20) mg/dL Creatinine 0.60 (0.57-1.11) mg/dL Glucose 122 H (70-99) mg/dL Calcium 8.6 (8.6-10.8) mg/dL Total Bilirubin 1.3 H (0.2-1.2) mg/dL AST 21 (5-34) Units/L ALT 9 (0-55) Units/L Alkaline Phosphatase 70 (38-126) Units/L Albumin 2.7 L (3.5-5.0) g/dL - VTE Documentation of Mechanical Device: Intermittent pneumatic compression device Consult Discharge Plan - Plan Referrals: Jer Juraez MD [Non-Partnered Physician] -
[2016-05-20 13:09] LABS: Magnesium 1.4 mg/dL (1.6-2.6)
[2016-05-20] MEDS ORDERED: *HR* Heparin 5,000 UNIT/ML VIAL IVP ONE (13:09)
[2016-05-20] MEDS ORDERED: *HR* Heparin 5,000 UNIT/ML VIAL IVP PRN ×2 (13:09)
[2016-05-20] MEDS ORDERED: Heparin 25,000 UNIT/500 ML D5W 25,000 UNIT/500 ML MLS IVC SCH (13:15)
[2016-05-20 13:32] LABS: INR 1.2; Prothrombin Time 13.4 Seconds (9.4-12.1)
[2016-05-20 13:35] LABS: Activated Partial Thrombo Time 33.5 Seconds (26.0-36.0)
--- NOTE | 2016-05-20 14:51 | Event Note ---
Date of Encounter: 05/20/16 Time of Encounter: 11:20 Rapid Response called at 1119 due to tachycardia; Patient is a 76 year old female, admitted with small bowel obstruction due to adhesions from previous surgeries and hernia, who did not respond to conservative medical management, and underwent exploratory celiotomy, adhesiolysis, SB resection; Patient seen and examined; noted to be very weak but alert and oriented. Reports feeling tired and unwell, weak all over; no chest pain, dyspnea, palpitations; Vitals- afebrile, AL- 150-170s, BP- 123/75, RR- 20, O2 sat- 94% on RA Chest- S1, S2 heard, irregular, tachycardia; Lungs- clear to auscultation B/L Abdomen- lower abdominal surgical cata in place; bowels sounds normal, soft and mildly tender at surgical site; Extremities- full ROM, no pedal edema EKG shows narrow complex irregular tachycardia- atrial fibrillation; Ordered 10mg IV Cardizem push and patient continues to be tachycardic, given another 10mg IV Cardizem push; HR slightly improved but persists in 130s-140s; to start IV Cardizem drip at 10mg/hr and titrate to maintain HR 90-110; She has no prior h/o- cardiac problems- CAD/arrhythmias/CHF; will get chest XRay , Echocardiogram, TFTs, Cardiology evaluation for possible cardioversion and anticoagulation; Case d/w Primary team , who plans to transfer patient to ICU and consult Critical care for further management and close monitoring;
--- NOTE | 2016-05-20 19:39 | Pulmonology Consult Note ---
<Guerrero Ramirez - Last Filed: 05/20/16 19:49> Date of Encounter: 05/20/16 Time of Encounter: 11:00 Assessment and Plan (1) Atrial fibrillation with rapid ventricular response Current Visit: Yes Status: Acute Hemodynamically stable, asymptomatic. EKG initally showed a rate in the 180s and irregular. Patient was give cardizem 10mg bolus x 2 and started on a drip at 15mg/hr. HR improved with this to 140s. Patient then started on amiodarone. Heparin started for anticoagulation, [id number] score of 4. Most likely causes at this time include pain, post surgical stress, other less likely possibilities include PE, ACS, acute peritonitis, other infection. Troponins negative, no significant ST changes. Evaluated by surgeon and this does not appears to be acute peritonitis. Patient has a wells score of 3 putting her at moderate risk of PE. If symptoms persist can consider CTA. Patient is fully anticoagulated with heparin. CXR unremarkable, echo pending. (2) Small bowel obstruction Current Visit: Yes Status: Acute Post op day 2 s/p small bowel resection. Active bowel sounds. No evidence of anastomitic leak. Evaluated by surgeon, Dr. Juarez. If we obtain a CTA we will also obtain a CT abd/pelvis to rule out significant intra-abdominal pathology. Dr. Juarez following. (3) Essential hypertension Current Visit: No Status: Chronic Blood pressures are on the low side but stable at this time. Will hold home BP meds. (4) DVT prophylaxis Current Visit: No Status: Acute On full anticoagulation with heparin History of Present Illness Consult date: 05/20/16 Requesting physician: Jer Juarez Reason for consult: other (tachycardia) Chief complaint: Tachycardia History of present illness: Patient is a 76 year old female who was admitted for partial small bowel obstruction who is post op day 2 s/p small bowel resection. A rapid response was called this morning for rapid heart rate. The patient was seen and evaluated. She reports mild abdominal pain at this time. She is otherwise asymptomatic. She denies any fever, chills, chest pain, dyspnea, palpitations, nausea, vomiting, diarrhea. Family is at bedside and state that the patient seems to be mentating normally. Past Med Surg Social Fam HX - Past Medical History Medical history: cancer, GERD, hypertension, other Psychiatric history: no psych history - Past Surgical History Surgical History: appendectomy, breast surgery, cholecystectomy, hysterectomy, orthopedic, other (2 knee surgeries and left shoulder surgery), other - Social History Smoking Status: Never smoker Smokeless Tobacco Status: No Alcohol use: none Drug use: none - Family History Brother Family Member Ethnicity: Non- Living Status: Hx Family Cardiac Disorders: Yes Hx Family Respiratory Disorders: No Hx Family Cancer: Yes Hx Family GI Disorders: No Hx Family Endocrine Disorder: No Hx Family Neuromuscular Disorders: No Hx Family Neurologic Disorders: No Hx Family HEENT Disorders: No Hx Family Autoimmune Disorders: No Medications and Allergies Albuterol Sulfate [Proair Respiclick] 2 puff IH DAILY PRN 05/26/15 [History] Docusate Sodium [Colace] 200 mg PO BID PRN 05/26/15 [History] Ferrous Gluconate 324 mg PO QAM 05/26/15 [History] Lisinopril [Zestril] 40 mg PO QAM 05/26/15 [History] Montelukast [Singulair] 10 mg PO QPM 05/26/15 [History] Omeprazole [PriLOSEC] 40 mg PO DAILY 05/26/15 [History] Ondansetron [Zofran] 4 mg PO BID PRN 05/26/15 [History] TraMADol [Ultram] 50 mg PO BID PRN 05/26/15 [History] Amoxicillin/Clavulanate [Augmentin] 875 mg PO BIDWM 05/17/16 [History] Cyanocobalamin (B-12) [Vitamin B12] 1,000 mcg SQ QMONTH 05/17/16 [History] Gabapentin [Neurontin] 100 mg PO HS 05/17/16 [History] Promethazine/Codeine [Phenergan/Codeine] 5 ml PO Q6HR PRN 05/17/16 [History] Allergies No Known Allergies Allergy (Verified 02/21/15 09:37) All Systems: A 10-system review of systems was performed and is negative for pertinent findings except as documented above in the HPI. - Constitutional Constitutional: no chills, no fever(s) - EENT Nose, mouth and throat: no throat swelling, no tongue swelling - Cardiovascular Cardiovascular: no chest pain, no diaphoresis, no dyspnea, no edema, no irregular heart rhythm, no palpitations, no syncope - Respiratory Respiratory: no cough, no dyspnea - Gastrointestinal Gastrointestinal: abdominal pain, no diarrhea, no nausea, no vomiting - Musculoskeletal Musculoskeletal: weakness, no numbness, no tingling - Neurological Neurological: no abnormal speech, no behavioral changes, no confusion, no dizziness, no numbness, no syncope, no tingling Physical Examination Vital Signs: Vital Signs, Last 4 Hours Temp Pulse Resp BP Pulse Ox 05/20/16 18:15 138 20 120/83 95 05/20/16 17:48 152 20 112/96 96 05/20/16 16:32 140 16 109/83 95 05/20/16 15:44 18 95 05/20/16 15:40 98.2 F General appearance: no acute distress ENT: oropharynx moist Effort: normal Auscultation: bilateral: clear Cardiovascular: irregular rhythm (tachycardia) Gastrointestinal: normoactive bowel sounds, soft, tender (mildly), non-distended , other (no rigidity, rebound tenderness) Integumentary: normal Extremities: no cyanosis, no edema, no clubbing normal mental status, non-focal exam mood appropriate, affect normal Results - Laboratory Findings CBC and BMP: 05/20/16 11:33 05/20/16 11:33 PT/INR, D-dimer PT 13.4 Seconds (9.4-12.1) H 05/20/16 11:33 Abnormal lab findings: Abnormal lab results Hgb 11.3 g/dL (11.5-15.4) L 05/20/16 11:33 MCH 27.6 pg (28.0-33.3) L 05/20/16 11:33 PT 13.4 Seconds (9.4-12.1) H 05/20/16 11:33 Potassium 3.3 mEq/L (3.5-4.5) L 05/20/16 11:33 BUN/Creatinine Ratio 27 (6-26) H 05/20/16 11:33 Glucose 122 mg/dL (70-99) H 05/20/16 11:33 POC Glucose 104 (58-89) H 05/20/16 12:34 Hemoglobin A1c 5.7 % (-5.6) H 05/17/16 03:40 Magnesium 1.4 mg/dL (1.6-2.6) L 05/20/16 11:33 Total Bilirubin 1.3 mg/dL (0.2-1.2) H 05/20/16 11:33 Albumin 2.7 g/dL (3.5-5.0) L 05/20/16 11:33 Albumin/Globulin Ratio 0.8 (1.1-2.2) L 05/20/16 11:33 Prealbumin 11.0 mg/dL (16.0-38.0) L 05/18/16 05:06 Lipase 6 Units/L (8-78) L 05/16/16 23:01 Ur Specific [place] > 1.030 (1.010-1.025) H 05/17/16 12:00 - Clinical Findings Intake & Output: Intake & Output 05/20/16 05/20/16 05/20/16 07:59 15:59 23:59 Intake Total 200 / 200 805 / 805 1125 / 1125 Output Total 300 / 300 275 / 275 Balance -100 / -100 805 / 805 850 / 850 Weight 57.2 kg Consult Discharge Plan - Plan Referrals: Jer Juarez MD [Non-Partnered Physician] - <Dimitri Sears - Last Filed: 05/20/16 21:43> All Systems: A 10-system review of systems was performed and is negative for pertinent findings except as documented above in the HPI. Physical Examination Vital Signs: Vital Signs, Last 4 Hours Temp Pulse Resp BP Pulse Ox 05/20/16 21:08 18 96 05/20/16 21:00 72 20 109/67 96 05/20/16 20:00 98.4 F 72 18 109/67 96 05/20/16 19:00 74 18 113/62 93 L 05/20/16 18:15 138 20 120/83 95 05/20/16 17:48 152 20 112/96 96 Results - Laboratory Findings CBC and BMP: 05/20/16 11:33 05/20/16 11:33 PT/INR, D-dimer PT 13.4 Seconds (9.4-12.1) H 05/20/16 11:33 Abnormal lab findings: Abnormal lab results Hgb 11.3 g/dL (11.5-15.4) L 05/20/16 11:33 MCH 27.6 pg (28.0-33.3) L 05/20/16 11:33 PT 13.4 Seconds (9.4-12.1) H 05/20/16 11:33 APTT 76.7 Seconds (26.0-36.0) H D 05/20/16 21:08 Potassium 3.3 mEq/L (3.5-4.5) L 05/20/16 11:33 BUN/Creatinine Ratio 27 (6-26) H 05/20/16 11:33 Glucose 122 mg/dL (70-99) H 05/20/16 11:33 POC Glucose 104 (58-89) H 05/20/16 12:34 Hemoglobin A1c 5.7 % (-5.6) H 05/17/16 03:40 Magnesium 1.4 mg/dL (1.6-2.6) L 05/20/16 11:33 Total Bilirubin 1.3 mg/dL (0.2-1.2) H 05/20/16 11:33 Albumin 2.7 g/dL (3.5-5.0) L 05/20/16 11:33 Albumin/Globulin Ratio 0.8 (1.1-2.2) L 05/20/16 11:33 Prealbumin 11.0 mg/dL (16.0-38.0) L 05/18/16 05:06 Lipase 6 Units/L (8-78) L 05/16/16 23:01 Ur Specific [place] > 1.030 (1.010-1.025) H 05/17/16 12:00 - Clinical Findings Intake & Output: Intake & Output 05/20/16 05/20/16 05/20/16 07:59 15:59 23:59 Intake Total 200 / 200 805 / 805 1425 / 1425 Output Total 300 / 300 475 / 475 Balance -100 / -100 805 / 805 950 / 950 Weight 57.2 kg - Attending Attestation I examined this patient and my medical decision-making was reviewed with the DIGESTER CAPPER/PA/Advanced Practice Nurse/Resident Physician. I agree with the documented findings, disposition and treatment plan as described except to the extent set forth below. Patient seen and examined. Labs, radiology, chart personally reviewed. Agree with resident's history and physical, assessment, plan with following comments: PROPERTY ASSISTANT: Patient follows commands, Pulmonary: Acceptable oxygenation and ventilation Cardiovascular: Unstable with A fib/RVR and patient on medication for rate control and anticoagulation. I'm not sure what caused this, could be stress of the surgery and less likely cardiac eventsl, echo has been ordered. I' concerned about pulmonary embolism post-operative time. If no improvement will consider CTA. Continue anticoagulation GI: Nutrition per dietary and GI prophylaxis per routine. Heme: DVT prophylaxis per routine ID: Continue antibiotics and plan to de-escalation Renal; urine out put and renal funtion reviewed Endorcine: blood glucose is monitored Lines: all lines checked and no evidence of infections Skin: skin care to prevent pressure ulcers per nursing routine care Discussed with primary team. Thanks Dr. Juarez for the consult.
--- NOTE | 2016-05-20 20:39 | Electrocardiograph Report ---
[facility] Test Date: 2016-05-20 Pat Name: BERTIN BUNCH Department: 115 Room: 12 Gender: F Shake Feeder: DESMOND : 1940 Requested By: Jer Juarez Order Number: [id number] Reading MD: Guerrero Shine MD Measurements Intervals [place] Rate: 184 P: [place]: 0 QRS: -8 QRSD: 101 T: -35 QT: 259 QTc: 355 Interpretive Statements ATRIAL FIBRILLATION WITH RAPID VENTRICULAR RESPONSE POSSIBLE INFERIOR MYOCARDIAL INFARCTION, PROBABLY OLD NONSPECIFIC ST \T\ T WAVE ABNORMALITY Electronically Signed On 05-20-16 20:37:54 EST by Guerrero Shine MD
[2016-05-20] MEDS: Acetaminophen 325 MG TABLET PO PRN (20:54)
[2016-05-21] MEDS: *HR* HYDROmorphone (PF) 1 MG/ML SYRINGE IVP PRN ×3 (00:45→06:56)
[2016-05-21] MEDS: Ondansetron 4 MG/2 ML VIAL IVP PRN ×5 (00:50→22:14)
[2016-05-21] MEDS: Acetaminophen 325 MG TABLET PO PRN (04:18)
[2016-05-21] MEDS: Albuterol 2.5 MG/3 ML NEBULIZER IH SCH ×4 (04:22→21:25)
[2016-05-21 04:34] LABS: Basophils % 0.2 %; Eosinophils # 0.1 K/mcL (0.0-0.6); Eosinophils % 1.4 %; Hematocrit 30.1 % (35.3-44.9); Hemoglobin 9.8 g/dL (11.5-15.4); Immature Granulocytes % 0.5 % (0-4); Lymphocytes # 0.7 K/mcL (0.6-4.6); Lymphocytes % 7.8 %; Mean Corpuscular HGB Conc 32.6 g/dL (31.6-35.5); Mean Corpuscular Hemoglobin 28.2 pg (28.0-33.3); Mean Corpuscular Volume 86.7 fL (83.0-100.0); Mean Platelet Volume 10.2 fL (9.4-12.4); Monocytes # 0.4 K/mcL (0.0-1.3); Monocytes % 5.2 %; Neutrophils # 7.2 K/mcL (1.6-8.9); Platelet Count 230 K/mcL (140-400); Red Blood Count 3.47 M/mcL (3.82-4.97); Red Cell Distribution Width 14.6 % (11.5-14.5); Segmented Neutrophils % 84.9 %
[2016-05-21 04:48] LABS: BUN/Creatinine Ratio 33 (6-26); Blood Urea Nitrogen 16 mg/dL (7-20); Calcium 7.9 mg/dL (8.6-10.8); Carbon Dioxide 22 mEq/L (19-29); Chloride 108 mEq/L (98-109); Glucose 99 mg/dL (70-99); Magnesium 1.9 mg/dL (1.6-2.6); Osmolality,Calculated 283 (280-300); Potassium 4.2 mEq/L (3.5-4.5); Sodium 136 mEq/L (136-145); eGFR For African Americans > 60 (> 60); eGFR For Non-African Americans > 60 (> 60)
[2016-05-21] MEDS ORDERED: Magnesium Sulfate 2 GM in D5% in Water 100 ML IVPB PRN ×2 (05:48→14:58)
[2016-05-21] MEDS ORDERED: *HR* Amiodarone 200 MG TABLET PO SCH (09:00)
[2016-05-21] MEDS: Pantoprazole 40 MG VIAL IVP SCH (09:15)
--- NOTE | 2016-05-21 09:44 | ECHO - Doppler Report ---
Echocardiogram Name: Maria Esther Sexton Date of Study: 05/20/2016 Date: 1940 Ht: 61.0 in Medical Record#: [id number] Age: 76 Wt: 126.0 lb Gender: Female BSA: 1.55 Order #: [id number] Location: [facility] Room #: 12 Reading Physician: Arsalan Jones DO, HAYDEN, LILIA SALMON Executive Recruiter: Veronica Villa Ordering Physician: Melly Drake MD Primary Physician: John Whiteside DO Indications: New onset afib w/RVR, weakness Impressions: LVEF 65%. Normal LV chamber size and function. Mild concentric left ventricular hypertrophy. Indeterminate diastolic function. Normal right ventricular structure and function. Moderately dilated left atrium. Aortic valve not well visualized. A possible bicuspid aortic valve cannot be excluded. Grossly, the leaflets appear moderately calcified. Mid aortic stenosis by Doppler. Mean gradient 12 mmHg. Mild-moderate pulmonary hypertension. Estimated RVSP is 45 mmHg. Recommend a repeat limited study to re-evaluate aortic valve morphology and function. Left Ventricular Wall Motion: Rest Echo Findings All wall segments showed normal motion. Findings: Study Quality * Technically adequate exam. ECG Findings * Atrial fibrillation with RVR. Left Ventricle * LVEF 65%. * Normal LV chamber size and function. * Mild concentric left ventricular hypertrophy. * Indeterminate diastolic function. Right Ventricle * Normal right ventricular structure and function. Left Atrium * Moderately dilated left atrium. Right Atrium * Mildly dilated right atrium. Interatrial Septum * Interatrial septum not well evaluated. Aortic Valve * Aortic valve not well visualized. A possible bicuspid aortic valve cannot be excluded. * Grossly, the leaflets appear moderately calcified. * No aortic regurgitation. * Mid aortic stenosis by Doppler. Mean gradient 12 mmHg. Mitral Valve * Mild mitral annular calcification * Mildly thickened mitral valve leaflets. * Trace mitral regurgitation. * No mitral stenosis. Tricuspid Valve * Normal tricuspid valve structure. * Trace tricuspid regurgitation. * Mild-moderate pulmonary hypertension. * Estimated RVSP is 45 mmHg. * Estimated RA pressure is 5 mmHg. Pulmonic Valve * Pulmonic valve not well visualized. * No pulmonic regurgitation. Aorta * Aortic root measures 3.7 cm. Sinotubular junction appears mildly effaced. Pericardium * There is a trivial pericardial effusion present. IVC * Normal IVC dimensions and inspiratory collapse. Pulmonary Artery * Normal visualized portions of the main pulmonary artery. History Hypertension Measurements: BP: 108/ 73 2D Normal Values RVIDd: 2.90 cm <2.7 cm IVSd: 1.30 cm 0.6 - 1.0 cm LVIDd: 2.80 cm 3.7 - 5.6 cm LVPWd: 1.20 cm 0.6 - 1.1 cm LVIDs: 2.10 cm 1.5 - 3.6 cm AO: 3.20 cm < 4.0 cm LA: 4.00 cm 2.0 - 4.0cm %FS: 25.00 cm >25 % LVOT Diam: 2.00 cm LA volume: 73 Mitral Valve Peak E:.85 m/sec Peak A:.74 m/sec E/A Ratio:1.1 LVOT Peak Maurice:.80 m/sec Mean Maurice:.52 m/sec Peak Grad:3.00 mmHg Mean Grad:1.00 mmHg Aortic Valve Peak Maurice:2.27 m/sec Mean Maurice:1.64 m/sec Peak Grad:21.00 mmHg Mean Grad:12.00 mmHg Tricuspid Valve TV Regurg Peak Grad: 40.00mmHg TV Regurg Peak Maurice: 3.18m/sec Updated by Arsalan Jones DO, FACMiki, VIKY, LILIA on 05/21/2016 9:38:30 AM electronically signed on 05/21/2016 9:40:18 AM with status of Final Wall Motion Jacinto: 1=Normal, 2=Hypokinesis, 3=Akinesis, 4=Dyskinesis, 5=Aneurysmal, 6=Hyperkinetic, X=Not Visualized (Blank)=Missing
--- NOTE | 2016-05-21 12:08 | General Surgery Progress Note ---
Date of Encounter: 05/21/16 Time of Encounter: 12:00 Subjective Patient reports: feels better, still having pain Narrative: General Surgery - POD #3 - patient feeling better. Nausea resolved, patient is now moving her bowels. Afebrile, 98.1, pulse, 86 (72-90); respirations 16, blood pressure 124/73. SPO2 on 2 L/min per nasal cannula 100%. Lungs: Clear Abdomen: Soft, persistent incisional pain as expected, no peritoneal signs. Active bowel sounds. Incision clean and dry. Patient is tolerating clear liquids, with oral intake improved with resolution of the nausea. Laboratories: White count 8.5, hemoglobin 9.8 with hematocrit 30.1; platelet count 230,000. Electrolytes within normal limits, potassium 4.2. BUN/creatinine 16 and 0.49. Elevated troponins likely due to demand ischemia Impression: Atrial fibrillation with RVR - currently controlled; IV amiodarone converted to oral. Cardiac evaluation including echo still in progress. Postoperative day 3 - status post exploratory celiotomy with small bowel resection with release of small bowel obstruction. Doing well. Bowel function returning to baseline Hypokalemia corrected Hypertension controlled Plan: Full liquids and advance diet as tolerated Transfer out of ICU per Pulm/CCM and Cardiology patient will likely require oral anticoagulation - to be determined by Cardiology Objective Vital Signs - Last 8 Hours Temp Pulse Resp BP Pulse Ox 05/21/16 10:00 86 16 124/73 100 05/21/16 09:00 90 16 162/80 100 05/21/16 08:48 16 100 05/21/16 08:13 72 16 118/70 100 05/21/16 07:43 98.1 F 05/21/16 05:52 72 16 110/71 100 05/21/16 05:00 70 15 114/66 100 05/21/16 04:24 15 100 Intake and Output 05/20/16 05/21/16 05/21/16 23:59 07:59 15:59 Intake Total 1525 / 1525 200 / 200 Output Total 525 / 525 250 / 250 Balance 1000 / 1000 -250 / -250 200 / 200 Intake: IV Fluids 1425 / 1425 200 / 200 0.9 % Sodium Chloride 1, 800 / 800 000 ML @ 75 mls/hr IVC . [id number] [facility] Rx#: [id number] Amiodarone 360mg/200mL 200 / 200 200 / 200 Drip Premix 360 mg In 200 ml @ 0.5 MG/MIN 16.667 mls/hr IVC CONT [facility] Rx#: [id number] Cardizem 125 MG In 25 / 25 Dextrose 5% 100 ML @ 10 MG/HR 10 mls/hr IVC . [id number] [facility] Rx#: [id number] Amiodarone 150mg/100mL 100 / 100 Premix 150 mg In 100 ml @ 300 mls/hr IVPB ONCE ONE Rx#:[id number] Magnesium Sulfate 4gm/ 100 / 100 100mL 4 gm In 100 ml @ 92 .593 mls/hr IVPB ONCE ONE Rx#:[id number] Potassium Chloride 10 mEq 200 / 200 /100mL 10 meq In 100 ml @ 100 mls/hr IVPB Q1H [facility] Rx#:[id number] Oral 100 / 100 Output: Urine 525 / 525 250 / 250 Other: Weight 59.1 kg - Labs 05/21/16 03:59 05/21/16 03:59 Diabetes panel 05/20/16 05/21/16 Range/Units 11:33 03:59 Sodium 137 136 (136-145) mEq/L Potassium 3.3 L 4.2 (3.5-4.5) mEq/L Chloride 105 108 (98-109) mEq/L Carbon Dioxide 24 22 (19-29) mEq/L BUN 16 16 (7-20) mg/dL Creatinine 0.60 0.49 L (0.57-1.11) mg/dL Glucose 122 H 99 (70-99) mg/dL Calcium 8.6 7.9 L (8.6-10.8) mg/dL AST 21 (5-34) Units/L ALT 9 (0-55) Units/L Alkaline Phosphatase 70 (38-126) Units/L Albumin 2.7 L (3.5-5.0) g/dL Calcium panel 05/20/16 05/21/16 Range/Units 11:33 03:59 Calcium 8.6 7.9 L (8.6-10.8) mg/dL Albumin 2.7 L (3.5-5.0) g/dL Pituitary panel 05/20/16 05/21/16 Range/Units 11:33 03:59 Sodium 137 136 (136-145) mEq/L Potassium 3.3 L 4.2 (3.5-4.5) mEq/L Chloride 105 108 (98-109) mEq/L Carbon Dioxide 24 22 (19-29) mEq/L BUN 16 16 (7-20) mg/dL Creatinine 0.60 0.49 L (0.57-1.11) mg/dL Glucose 122 H 99 (70-99) mg/dL Calcium 8.6 7.9 L (8.6-10.8) mg/dL Adrenal panel 05/20/16 05/21/16 Range/Units 11:33 03:59 Sodium 137 136 (136-145) mEq/L Potassium 3.3 L 4.2 (3.5-4.5) mEq/L Chloride 105 108 (98-109) mEq/L Carbon Dioxide 24 22 (19-29) mEq/L BUN 16 16 (7-20) mg/dL Creatinine 0.60 0.49 L (0.57-1.11) mg/dL Glucose 122 H 99 (70-99) mg/dL Calcium 8.6 7.9 L (8.6-10.8) mg/dL Total Bilirubin 1.3 H (0.2-1.2) mg/dL AST 21 (5-34) Units/L ALT 9 (0-55) Units/L Alkaline Phosphatase 70 (38-126) Units/L Albumin 2.7 L (3.5-5.0) g/dL - VTE Documentation of Mechanical Device: Intermittent pneumatic compression device Consult Discharge Plan - Plan Referrals: Jer Juarez MD [Non-Partnered Physician] -
[2016-05-21] MEDS ORDERED: *HR* OxyCODONE/APAP 5/325 TABLET PO PRN (13:20)
[2016-05-21] MEDS ORDERED: *HR* HYDROmorphone (PF) 1 MG/ML SYRINGE IVP PRN (13:21)
[2016-05-21] MEDS ORDERED: *HR* Heparin 5,000 UNIT/ML VIAL IVP PRN ×2 (14:58)
[2016-05-21] MEDS ORDERED: Naloxone 0.4 MG/ML INJ IVP PRN (14:58)
[2016-05-21] MEDS ORDERED: Acetaminophen 325 MG TABLET PO PRN (14:58)
[2016-05-21] MEDS: *HR* OxyCODONE/APAP 5/325 TABLET PO PRN ×2 (15:18→19:48)
--- NOTE | 2016-05-21 16:38 | Electrocardiograph Report ---
April Cardiology Test Date: 2016-05-20 Pat Name: Maria Esther BUNCH Department: 109 Room: [facility] Gender: F Treatment Specialist: : 1940 Requested By: Jer Juarez Order Number: [id number] Reading MD: Arsalan Jones DO Measurements Intervals Holiday Rate: 72 P: 27 [place]: 141 QRS: -2 QRSD: 92 T: 10 QT: 419 QTc: 444 Interpretive Statements Sinus rhythm Electronically Signed On 05-21-16 16:37:19 EST by Arsalan Jones DO
--- NOTE | 2016-05-21 16:42 | Pulmonology Progress Note ---
<Guerrero Ramirez - Last Filed: 05/21/16 16:37> Date of Encounter: 05/21/16 Time of Encounter: 08:00 Assessment and Plan (1) Atrial fibrillation with rapid ventricular response Current Visit: Yes Status: Acute Patient spontaneously converted to normal sinus rhythm at approximately 1830 last night. We will transition to by mouth amiodarone. Patient has a [id number]- Vasc 4 continue systemic anticoagulation at this time. Echo is pending to determine if this is valvular or nonvalvular A. fib. If this is valvular A. fib the patient will require Coumadin, if this is nonvalvular A. fib one of the novel oral anticoagulants can be used. Elevation in troponin likely related to demand ischemia. No evidence of myocardial injury. This is likely related to the stress of surgery. Patient will need outpatient follow-up with cardiology to determine long-term management and anticoagulation. (2) Small bowel obstruction Current Visit: Yes Status: Acute Stable. Patient's diet is advancing. Management per surgery. (3) Essential hypertension Current Visit: No Status: Chronic Stable at this time. We will continue to monitor. (4) DVT prophylaxis Current Visit: No Status: Acute On heparin drip. Subjective Principal diagnosis: Rapid heart rate Interval history: Patient seen and examined at bedside. Patient states she feels better this morning. She states her appetite starting back. She denies chest pain, shortness of breath. Objective PUL Vital signs: Last Vital Signs Temp 98.3 F 05/21/16 15:48 Pulse 88 05/21/16 15:47 Resp 18 05/21/16 16:15 BP 162/81 05/21/16 15:47 Pulse Ox 98 05/21/16 16:15 General appearance: no acute distress ENT: oropharynx moist Effort: normal Auscultation: bilateral: clear Cardiovascular: regular rate and rhythm Gastrointestinal: normoactive bowel sounds, soft, non-tender, non-distended, other (Midline surgical incision with cata present. Clean dry and intact. No evidence of infection.) Extremities: no cyanosis, no edema, no clubbing normal mental status, non-focal exam Results - Laboratory Findings CBC and BMP: 05/21/16 03:59 05/21/16 03:59 PT/INR, D-dimer PT 13.4 Seconds (9.4-12.1) H 05/20/16 11:33 Abnormal lab findings: Abnormal lab results RBC 3.47 M/mcL (3.82-4.97) L 05/21/16 03:59 Hgb 9.8 g/dL (11.5-15.4) L D 05/21/16 03:59 Hct 30.1 % (35.3-44.9) L 05/21/16 03:59 RDW 14.6 % (11.5-14.5) H 05/21/16 03:59 PT 13.4 Seconds (9.4-12.1) H 05/20/16 11:33 APTT 62.2 Seconds (26.0-36.0) H 05/21/16 03:59 Creatinine 0.49 mg/dL (0.57-1.11) L 05/21/16 03:59 BUN/Creatinine Ratio 33 (6-26) H 05/21/16 03:59 POC Glucose 104 (58-89) H 05/20/16 12:34 Hemoglobin A1c 5.7 % (-5.6) H 05/17/16 03:40 Calcium 7.9 mg/dL (8.6-10.8) L 05/21/16 03:59 Total Bilirubin 1.3 mg/dL (0.2-1.2) H 05/20/16 11:33 Troponin I 0.08 ng/mL (0-0.03) H* 05/21/16 03:59 Albumin 2.7 g/dL (3.5-5.0) L 05/20/16 11:33 Albumin/Globulin Ratio 0.8 (1.1-2.2) L 05/20/16 11:33 Prealbumin 11.0 mg/dL (16.0-38.0) L 05/18/16 05:06 Lipase 6 Units/L (8-78) L 05/16/16 23:01 Ur Specific [place] > 1.030 (1.010-1.025) H 05/17/16 12:00 - Clinical Findings Intake & Output: Intake & Output 05/21/16 05/21/16 05/21/16 07:59 15:59 23:59 Intake Total 304 / 304 Output Total 250 / 250 Balance -250 / -250 304 / 304 - VTE Documentation of Mechanical Device: Intermittent pneumatic compression device Consult Discharge Plan - Plan Referrals: Jer Juarez MD [Non-Partnered Physician] - <Dimitri Sears - Last Filed: 05/21/16 17:20> Objective PUL Vital signs: Last Vital Signs Temp 98.3 F 05/21/16 15:48 Pulse 88 05/21/16 15:47 Resp 18 05/21/16 16:15 BP 162/81 05/21/16 15:47 Pulse Ox 98 05/21/16 16:15 Results - Laboratory Findings CBC and BMP: 05/21/16 03:59 05/21/16 03:59 PT/INR, D-dimer PT 13.4 Seconds (9.4-12.1) H 05/20/16 11:33 Abnormal lab findings: Abnormal lab results RBC 3.47 M/mcL (3.82-4.97) L 05/21/16 03:59 Hgb 9.8 g/dL (11.5-15.4) L D 05/21/16 03:59 Hct 30.1 % (35.3-44.9) L 05/21/16 03:59 RDW 14.6 % (11.5-14.5) H 05/21/16 03:59 PT 13.4 Seconds (9.4-12.1) H 05/20/16 11:33 APTT 62.2 Seconds (26.0-36.0) H 05/21/16 03:59 Creatinine 0.49 mg/dL (0.57-1.11) L 05/21/16 03:59 BUN/Creatinine Ratio 33 (6-26) H 05/21/16 03:59 POC Glucose 104 (58-89) H 05/20/16 12:34 Hemoglobin A1c 5.7 % (-5.6) H 05/17/16 03:40 Calcium 7.9 mg/dL (8.6-10.8) L 05/21/16 03:59 Total Bilirubin 1.3 mg/dL (0.2-1.2) H 05/20/16 11:33 Troponin I 0.08 ng/mL (0-0.03) H* 05/21/16 03:59 Albumin 2.7 g/dL (3.5-5.0) L 05/20/16 11:33 Albumin/Globulin Ratio 0.8 (1.1-2.2) L 05/20/16 11:33 Prealbumin 11.0 mg/dL (16.0-38.0) L 05/18/16 05:06 Lipase 6 Units/L (8-78) L 05/16/16 23:01 Ur Specific [place] > 1.030 (1.010-1.025) H 05/17/16 12:00 - Clinical Findings Intake & Output: Intake & Output 05/21/16 05/21/16 05/21/16 07:59 15:59 23:59 Intake Total 304 / 304 Output Total 250 / 250 Balance -250 / -250 304 / 304 - Attending Attestation I examined this patient and my medical decision-making was reviewed with the DIAPER FOLDER/PA/Advanced Practice Nurse/Resident Physician. I agree with the documented findings, disposition and treatment plan as described except to the extent set forth below. Patient seen and examined and labs reviewed Patient is feeling better and denies any chest pain. Discussed with Dr. Juarez regarding anticoagulation Follow up on echo result Will follow up PRN.
[2016-05-22] MEDS: *HR* OxyCODONE/APAP 5/325 TABLET PO PRN ×2 (00:43→04:56)
[2016-05-22] MEDS: Heparin 25,000 UNIT/500 ML D5W 25,000 UNIT/500 ML MLS IVC SCH (01:39)
[2016-05-22 03:24] LABS: Basophils % 0.1 %; Eosinophils # 0.1 K/mcL (0.0-0.6); Eosinophils % 1.4 %; Hematocrit 29.3 % (35.3-44.9); Hemoglobin 9.7 g/dL (11.5-15.4); Immature Granulocytes % 0.4 % (0-4); Lymphocytes # 0.8 K/mcL (0.6-4.6); Lymphocytes % 10.9 %; Mean Corpuscular HGB Conc 33.1 g/dL (31.6-35.5); Mean Corpuscular Volume 84.7 fL (83.0-100.0); Mean Platelet Volume 9.4 fL (9.4-12.4); Monocytes # 0.5 K/mcL (0.0-1.3); Monocytes % 5.9 %; Neutrophils # 6.2 K/mcL (1.6-8.9); Platelet Count 277 K/mcL (140-400); Red Blood Count 3.46 M/mcL (3.82-4.97); Red Cell Distribution Width 14.3 % (11.5-14.5); Segmented Neutrophils % 81.3 %
[2016-05-22 03:30] LABS: INR 1.2; Prothrombin Time 12.6 Seconds (9.4-12.1)
[2016-05-22 03:38] LABS: BUN/Creatinine Ratio 29 (6-26); Blood Urea Nitrogen 14 mg/dL (7-20); Calcium 7.7 mg/dL (8.6-10.8); Carbon Dioxide 23 mEq/L (19-29); Chloride 106 mEq/L (98-109); Glucose 81 mg/dL (70-99); Osmolality,Calculated 280 (280-300); Potassium 3.7 mEq/L (3.5-4.5); Sodium 135 mEq/L (136-145); eGFR For African Americans > 60 (> 60); eGFR For Non-African Americans > 60 (> 60)
[2016-05-22] MEDS: Albuterol 2.5 MG/3 ML NEBULIZER IH SCH ×2 (04:53→10:45)
[2016-05-22] MEDS ORDERED: *HR* Metoprolol 5 MG/5 ML VIAL IVP PRN (05:55)
[2016-05-22] MEDS: *HR* Amiodarone 200 MG TABLET PO SCH ×2 (06:17→07:19)
--- NOTE | 2016-05-22 09:19 | Internal Medicine Consult Note ---
Date of Encounter: 05/22/16 Time of Encounter: 09:00 Internal Medicine - CN: HPI - Data of Consult Patient: known to practice within the last 3 years Consult date: 05/22/16 Requesting Physician: Jer Juarez - Consult Narrative Reason for consult: Tachycardia History of present illness: Ms. Sexton is a 76 year old female with no known cardiac history was initially admitted on 05/17/2016 due to persistent nausea, emesis and abdominal pain from small bowel obstruction. She was admitted to hospitalist service and surgery was consulted. Patient showed no improvement with conservative medical management and had to undergo surgery on 05/18/2016 with exploratory celiotomy, small bowel resection and lysis of adhesions. Patient was noted to have atrial fibrillation with rapid ventricular rate, which is new onset for her on 05/20/2016, was started on IV Cardizem drip and transferred to ICU for further management. While in ICU, she was managed by pulmonary/critical care team and was started on IV amiodarone drip and IV heparin drip, she converted to sinus rhythm and was transitioned to oral amiodarone and transferred to regular floor yesterday. Patient reports having the sudden onset of palpitations associated with some shortness of breath this morning, which improved with metoprolol and Cardizem. She is very irritable because of her symptoms. She reports no particular chest pain, dizziness, syncope or leg swelling. She did have significant abdominal pain since admission and related to her surgery, and she reports that her pain is actually getting worse although it is noted that she has been taken off IV Dilaudid and is currently only receiving when necessary oral Percocet for pain control. - Constitutional Constitutional: anorexia - EENT Additional comments: None - Cardiovascular Cardiovascular ROS IM: dyspnea, lightheadedness, palpitations - Respiratory Additional comments: none - Gastrointestinal Gastrointestinal: abdominal pain - Genitourinary Additional comments: none - Musculoskeletal Additional comments: none - Integumentary Additional comments: none - Neurological Additional comments: none - Psychiatric Additional comments: none - Endocrine Additional comments: none - Hematologic/Lymphatic Additional comments: none Past Med Surg Social Fam HX - Past Medical History Medical history: cancer, GERD, hypertension, other Psychiatric history: no psych history - Past Surgical History Surgical History: appendectomy, breast surgery, cholecystectomy, hysterectomy, orthopedic, other (2 knee surgeries and left shoulder surgery), other - Social History Smoking Status: Never smoker Smokeless Tobacco Status: No Alcohol use: none Drug use: none Current living situation: Home, With Family Activity Level: Independent ambulation Recent Out of Country Travel Within the Last 8 Weeks: No Exposure or Possible Exposure to Illness During Travel: No - Family History Brother Family Member Ethnicity: Non- Living Status: Hx Family Cardiac Disorders: Yes Hx Family Respiratory Disorders: No Hx Family Cancer: Yes Hx Family GI Disorders: No Hx Family Endocrine Disorder: No Hx Family Neuromuscular Disorders: No Hx Family Neurologic Disorders: No Hx Family HEENT Disorders: No Hx Family Autoimmune Disorders: No Internal Medicine - CN: Meds Albuterol Sulfate [Proair Respiclick] 2 puff IH DAILY PRN 05/26/15 [History] Docusate Sodium [Colace] 200 mg PO BID PRN 05/26/15 [History] Ferrous Gluconate 324 mg PO QAM 05/26/15 [History] Lisinopril [Zestril] 40 mg PO QAM 05/26/15 [History] Montelukast [Singulair] 10 mg PO QPM 05/26/15 [History] Omeprazole [PriLOSEC] 40 mg PO DAILY 05/26/15 [History] Ondansetron [Zofran] 4 mg PO BID PRN 05/26/15 [History] TraMADol [Ultram] 50 mg PO BID PRN 05/26/15 [History] Amoxicillin/Clavulanate [Augmentin] 875 mg PO BIDWM 05/17/16 [History] Cyanocobalamin (B-12) [Vitamin B12] 1,000 mcg SQ QMONTH 05/17/16 [History] Gabapentin [Neurontin] 100 mg PO HS 05/17/16 [History] Promethazine/Codeine [Phenergan/Codeine] 5 ml PO Q6HR PRN 05/17/16 [History] Allergies No Known Allergies Allergy (Verified 02/21/15 09:37) Internal Medicine - CN: Exam - Constitutional Vitals: Temp Pulse Resp BP Pulse Ox 98.3 F 86 18 144/78 100 05/22/16 07:10 05/22/16 07:10 05/22/16 07:10 05/22/16 07:10 05/22/16 07:10 General appearance IM: Present: A&O X 3, answers questions appropriately - Head Head exam: Present: atraumatic - Eye Pupils: Present: PERRL - Neck Neck exam general surgery: Present: full ROM, supple, trachea midline - Respiratory Respiratory exam: Present: CTAB - Cardiovascular Cardiovascular exam IM: Present: RRR, +S1, +S2 - GI/Abdominal GI/Abdominal exam IM: Present: normal bowel sounds, soft (midline surgical wound and cata; healing well;) - Extremities Exam Extremities exam IM: Present: full ROM, radial pulses palpable and symetrical - Back Exam Back exam: Present: full ROM - Neurological Exam Neurological exam: Present: CN II-XII intact, oriented X3, no focal deficits, strengths equal and symetr throughout - Skin Skin exam IM: Present: warm Internal Medicine - CN: Reslt - Labs CBC & Chem 7: 05/22/16 03:04 05/22/16 03:04 Labs: Short CBC 05/22/16 Range/Units 03:04 WBC 7.6 (4.3-11.1) K/mcL Hgb 9.7 L (11.5-15.4) g/dL Hct 29.3 L (35.3-44.9) % Plt Count 277 (140-400) K/mcL Neutrophils # 6.2 (1.6-8.9) K/mcL BMP 05/22/16 03:04 Sodium 135 L Potassium 3.7 Chloride 106 Carbon Dioxide 23 BUN 14 Creatinine 0.49 L Glucose 81 Calcium 7.7 L - ABG Interpretation ABG results: PT/INR, D-dimer PT 12.6 Seconds (9.4-12.1) H 05/22/16 03:04 - Assessment and Plan (1) Atrial fibrillation with rapid ventricular response Current Visit: Yes Status: Acute Assessment and plan: New onset atrial fibrillation during this admission likely due to stress from surgery and abdominal pain. Patient is currently in sinus rhythm on my examination. She is noted to be having intermittent atrial fibrillation. Heart rate improved with 1 dose of 5 mg metoprolol this morning and one dose of 10 mg Cardizem now. Continue amiodarone and IV heparin drip. Echocardiogram reviewed, shows preserved ejection fraction with no gross valvular abnormalities , mild concentric LVH. Patient may need to be on scheduled beta tai like metoprolol. She may also need to be on newer anticoagulants as she is noted to have nonvalvular atrial fibrillation. Cardiology consult for further recommendations. (2) Small bowel obstruction Current Visit: Yes Status: Resolved Assessment and plan: Underwent surgery for lysis of adhesions. Postoperative care per surgery. Currently on full liquid diet, noted to have bowel movements. (3) GERD (gastroesophageal reflux disease) Current Visit: Yes Status: Chronic Assessment and plan: Continue PPI. Qualifiers: Esophagitis presence: esophagitis presence not specified Qualified Code(s) : K21.9 - Gastro-esophageal reflux disease without esophagitis (4) HTN (hypertension) Current Visit: Yes Status: Chronic Assessment and plan: Patient has fairly controlled blood pressure and noted to be on lisinopril at home, which is currently held. Antihypertensive may need to be switched to beta tai or calcium channel tai instead of lisinopril. Low-sodium diet. Qualifiers: Hypertension type: essential hypertension Qualified Code(s): I10 - Essential (primary) hypertension Consult Discharge Plan - Plan Referrals: Jer Juarez MD [Non-Partnered Physician] -
--- NOTE | 2016-05-22 09:33 | ECHO - Doppler Report ---
Limited Echocardiogram Name: Maria Esther Sexton Date of Study: 05/21/2016 Date: 1940 Ht: 61.0 in Medical Record#: [id number] Age: 76 Wt: 130.0 lb Gender: Female BSA: 1.57 Order #: [id number] Location: [facility] Room #: [facility] Reading Physician: Estefani Peterson DO [employer] Professor: Tabatha Jovel Ordering Physician: Guerrero Ramirez DO Primary Physician: John Whiteside DO Indications: Murmur, Evaluate aortic valve Impressions: Visually, the aortic valve is moderately calcified. The morphology is suboptimally evaluated. However, in image #37, the valve may demonstrate trileaflet morphology with fusion of the right and left cusps making the valve functionally bicuspid. For definitive diagnosis, I recommend a LIUDMILA. Doppler evaluation demonstrates mild aortic stenosis. Left Ventricular Wall Motion: Rest Echo Findings All wall segments showed normal motion. Findings: Study Quality * Technically adequate exam. ECG Findings * Normal sinus rhythm. Left Ventricle * LVEF 60%. * Mild concentric left ventricular hypertrophy. Mitral Valve * Mild mitral annular calcification * Mild mitral regurgitation. * Mildly calcified mitral valve leaflets. Aortic Valve * No aortic regurgitation. * Aortic valve suboptimally visualized. See Impressions. * Mild aortic stenosis. Tricuspid Valve * Normal tricuspid valve structure. Right Ventricle * Normal right ventricular structure and function. Left Atrium * Severely dilated left atrium. Right Atrium * Normal right atrial size. History Hypertension 05/20/2016 a Previous Echo was performed. Measurements: BP: 162/ 81 2D Normal Values IVSd: 1.30 cm 0.6 - 1.0 cm LVIDd: 4.91 cm 3.7 - 5.6 cm LVPWd: 1.30 cm 0.6 - 1.1 cm LVIDs: 3.60 cm 1.5 - 3.6 cm %FS: 20.60 cm >25 % LVOT Diam: 2.00 cm LA volume: LVOT Peak Maurice:1.05 m/sec Mean Maurice:.62 m/sec Peak Grad:4.00 mmHg Mean Grad:2.00 mmHg Aortic Valve Peak Maurice:2.48 m/sec Mean Maurice:1.76 m/sec Peak Grad:25.00 mmHg Mean Grad:14.33 mmHg Valve Area:1.36 cm2 Updated by Estefani Peterson on 05/22/2016 9:28:12 AM electronically signed on 05/22/2016 9:29:21 AM with status of Final Wall Motion Jacinto: 1=Normal, 2=Hypokinesis, 3=Akinesis, 4=Dyskinesis, 5=Aneurysmal, 6=Hyperkinetic, X=Not Visualized (Blank)=Missing
--- NOTE | 2016-05-22 09:56 | Cardiology Consult Note ---
<Jose Steiner - Last Filed: 05/22/16 12:10> Date of Encounter: 05/22/16 Time of Encounter: 10:00 Assessment and Plan (1) Small bowel obstruction Current Visit: Yes Status: Resolved Per Cardiology: Initially admitted on 05/17/2016 due to persistent nausea, emesis and abdominal pain from small bowel obstruction. She was admitted to hospitalist service and surgery was consulted. Patient showed no improvement with conservative medical management and had to undergo surgery on 05/18/2016 with exploratory celiotomy, small bowel resection and lysis of adhesions. Surgery following. Afebrile, no leukocytosis. (2) Atrial fibrillation with rapid ventricular response Current Visit: Yes Status: Acute Per Cardiology: Apparent new onset atrial fibrillation in setting of small bowel obstruction s/ p exploratory celiotomy, small bowel resection and lysis of adhesions. 24 hour telemetry reviewed with average heart rate 94. Patient noted to have paroxysmal atrial fibrillation with RVR this morning (patient repoerts occurred with nebulizer), currently sinus rhythm in the 80s on telemetry. Apparently, was initially started on a Cardizem drip and then amiodarone drip. Patient currently on amiodarone 200 mg by mouth daily and Lopressor 25 mg by mouth twice a day. Magnesium 1.4, 1.9, and now 1.6-- will give another Mg Shawn since had afibr RVR again. TSH ok. Echo reviewed and showed mild aortic stenosis, aortic valve not well visualized and cannot determine if valve bicuspid with recommendations for consideration of LIUDMILA (has a murmur)-- can be evaluated in outpatient setting once recovered from acute events. Negative nonexercise nuclear stress test September 2012. Will DC alb nebs for now. Regarding long-term anticoagulation, [id number] 4. Currently on IV heparin drip. Hemoglobin and hematocrit from admission until now down from 13.5-9.7 and 38.2-29.3. Op report reviewed with estimated blood loss of 200ml. Recommend guaiac stools. Ideally, for primary prevention of stroke patient would be started on long-term anticoagulation, however we'll continue to monitor on IV heparin drip for any active bleeding or blood loss. She reports remote Hx of gastric ulcers. No recent falls. Long-term anticoagulation needs to be addressed prior to discharge. (3) Elevated troponin I measurement Current Visit: Yes Status: Acute Per Cardiology: Troponin initially negative at 0.01 with subsequent increase to 0.12 and 0.08. No previous elevated troponins noted. Last stress test negative for ischemia in September 2012. ECG with no signs of ischemia. Denies CP. Suspect demand ischemia in setting of A. fib with RVR. No cardiac rehab consult warranted. Discussion w patient/family: The assessment and plan as outlined above was discussed with the patient who expressed understanding and agreement. All questions were answered. Thank you for involving us in the care of your patient. Please call with any questions. History of Present Illness Consult date: 05/22/16 Requesting physician: Shelia Drake Consult reason: Afib RVR Chief complaint: Rapid HR History of present illness: Ms. Sexton is a 76 year old female with a past medical history: Breast cancer; gastroesophageal reflux disease/PUD; hypertension; osteoarthritis with chronic joint pain. Previous records reviewed: "initially admitted on 05/17/2016 due to persistent nausea, emesis and abdominal pain from small bowel obstruction. She was admitted to hospitalist service and surgery was consulted. Patient showed no improvement with conservative medical management and had to undergo surgery on 05/18/2016 with exploratory celiotomy, small bowel resection and lysis of adhesions. Patient was noted to have atrial fibrillation with rapid ventricular rate, which is new onset for her on 05/20/2016, was started on IV Cardizem drip and transferred to ICU for further management. While in ICU, she was managed by pulmonary/critical care team and was started on IV amiodarone drip and IV heparin drip, she converted to sinus rhythm and was transitioned to oral amiodarone and transferred to regular floor yesterday". Cardiology consult for suspected new onset afib and for recs on AC. Patient denies any past history of atrial fibrillation or atrial flutter. Denies any known cardiac history. Reports developed rapid heart rate this morning with nebulizer treatment. Palpitations and now subsided. She denies any chest pain or shortness of breath. Reports history of gastric bypass and peptic ulcers in the past. Denies any recent GI bleeding in the past few years. Reports had one fall about 2 years ago. Denies any recent falls. Denies any active bleeding or blood loss during this hospital stay. Past Med Surg Social Fam HX - Past Medical History Attestation: Yes The following information was validated with the patient. Source: patient, old records reviewed Medical history: cancer, GERD, hypertension, other Psychiatric history: no psych history - Past Surgical History Surgical History: appendectomy, breast surgery, cholecystectomy, hysterectomy, orthopedic, other (2 knee surgeries and left shoulder surgery), other - Social History Smoking Status: Never smoker Smokeless Tobacco Status: No Alcohol use: none Drug use: none - Family History Brother Family Member Ethnicity: Non- Living Status: Hx Family Cardiac Disorders: Yes Hx Family Respiratory Disorders: No Hx Family Cancer: Yes Hx Family GI Disorders: No Hx Family Endocrine Disorder: No Hx Family Neuromuscular Disorders: No Hx Family Neurologic Disorders: No Hx Family HEENT Disorders: No Hx Family Autoimmune Disorders: No Medications and Allergies Albuterol Sulfate [Proair Respiclick] 2 puff IH DAILY PRN 05/26/15 [History] Docusate Sodium [Colace] 200 mg PO BID PRN 05/26/15 [History] Ferrous Gluconate 324 mg PO QAM 05/26/15 [History] Lisinopril [Zestril] 40 mg PO QAM 05/26/15 [History] Montelukast [Singulair] 10 mg PO QPM 05/26/15 [History] Omeprazole [PriLOSEC] 40 mg PO DAILY 05/26/15 [History] Ondansetron [Zofran] 4 mg PO BID PRN 05/26/15 [History] TraMADol [Ultram] 50 mg PO BID PRN 05/26/15 [History] Amoxicillin/Clavulanate [Augmentin] 875 mg PO BIDWM 05/17/16 [History] Cyanocobalamin (B-12) [Vitamin B12] 1,000 mcg SQ QMONTH 05/17/16 [History] Gabapentin [Neurontin] 100 mg PO HS 05/17/16 [History] Promethazine/Codeine [Phenergan/Codeine] 5 ml PO Q6HR PRN 05/17/16 [History] Allergies No Known Allergies Allergy (Verified 02/21/15 09:37) All Systems Review: A 10-system review of systems was performed and is negative for pertinent findings except as documented above in the HPI. - Cardiovascular Cardiovascular: as per HPI, palpitations - Gastrointestinal Gastrointestinal: abdominal pain, nausea Physical Examination Vital Signs, Last 4 Hours Temp Pulse Resp BP Pulse Ox 05/22/16 07:10 98.3 F 86 18 144/78 100 General: Conversant, No Apparent Distress HEENT: Atraumatic, Normocephaly, Mucus Membranes Moist Neck: No JVD, Normal carotid pulses Cardiac: Reg Rate and Rhythm, Normal S1 and S2, Other (garde III/ murmur) Lungs: Normal Breath Sounds, No Wheeze, Rales, Rhonchi Neuro: Alert and responsive, No focal deficits noted Abdomen: Soft, Other (Abdominal incision with cata, open air, no erythema or drainage) Skin: No rashes noted on visualized skin Musculoskeletal: No Chest Wall Tenderness Extremities: No Edema, Normal Pulses Results 05/22/16 03:04 05/22/16 03:04 Lab Results Laboratory Tests 05/16/16 05/16/16 05/20/16 23:01 23:01 11:33 Hgb 13.5 Hct 41.6 INR Potassium 3.3 L Magnesium 1.4 L Troponin I 0.01 05/20/16 05/20/16 05/21/16 12:05 21:08 03:59 Hgb Hct INR Potassium Magnesium 1.9 Troponin I 0.01 0.12 H* 05/21/16 05/22/16 05/22/16 03:59 03:04 03:04 Hgb 9.7 L Hct 29.3 L INR 1.2 Potassium Magnesium Troponin I 0.08 H* 05/22/16 03:04 Hgb Hct INR Potassium 3.7 Magnesium Troponin I Laboratory Tests 05/22/16 10:31 Magnesium 1.6 TSH 0.616 ITS Impressions Abdomen/Pelvis CT 05/16/16 22:46 IMPRESSION: 1. Findings compatible with small bowel obstruction. Transition point in the right lower quadrant. 2. Stable biliary ductal dilation. D/ / 05/17/2016 07:11:13 Niko Mccarthy MD / boby Interpreting Provider: Niko Mccarthy MD X-Ray 05/18/16 09:52 IMPRESSION: Persistent small bowel obstruction. D/ / Deon Smith MD / Deon Smith MD Interpreting Provider: Deon Smith MD Chest X-Ray 05/20/16 12:57 IMPRESSION: Equivocal findings right lung base D/ / Renan Jennings MD / Renan Jennings MD Interpreting Provider: Renan Jennings MD Active Medications Acetaminophen (Tylenol) 650 mg PO Q6HR PRN PRN Reason: Pain Stop: 11/19/16 12:56 Albuterol Sulfate (Proventil Neb) 2.5 mg IH [id number] [facility] PRN Reason: Protocol Stop: 11/17/16 16:46 Last Admin: 05/22/16 04:53 Dose: 2.5 mg Amiodarone HCl (Cordarone) 200 mg PO DAILY [facility] Stop: 11/20/16 06:16 Last Admin: 05/22/16 07:19 Dose: Not Given Heparin Sodium (Porcine) (Heparin) 1,800 unit 35 unit/kg (1800 unit) IVP Q6H PRN PRN Reason: SEE COMMENTS Stop: 11/19/16 13:10 Last Admin: 05/22/16 04:56 Dose: 1,800 unit Heparin Sodium (Porcine) (Heparin) 3,700 unit 70 unit/kg (3700 unit) IVP Q6HR PRN PRN Reason: SEE COMMENTS Stop: 11/19/16 13:10 Hydralazine HCl (Hydralazine) 10 mg IVP Q6HR PRN PRN Reason: Hypertension Stop: 11/17/16 13:45 Heparin Sodium/Dextrose (Heparin 25,000 Unit/500 Ml D5w) 25,000 unit in 500 mls @ 14.672 mls/hr IVC .Q24H [facility]; 14 UNIT/KG/HR PRN Reason: Protocol Stop: 11/19/16 13:16 Last Titration: 05/22/16 04:39 Dose: 16 unit/kg/hr, 16.768 mls/hr Magnesium Sulfate 2 gm/ (Dextrose) 104 mls @ 50 mls/hr IVPB Q6H PRN PRN Reason: Hypomagnesemia Stop: 11/20/16 05:49 Potassium Chloride (Potassium Chloride 10 Meq/100ml) 10 meq in 100 mls @ 100 mls/hr IVPB Q1H PRN PRN Reason: Potassium less than 4 Stop: 11/20/16 05:49 Metoprolol Tartrate (Lopressor) 5 mg IVP Q6HR PRN PRN Reason: Heart Rate- High Stop: 11/21/16 05:56 Last Admin: 05/22/16 06:03 Dose: 5 mg Metoprolol Tartrate (Lopressor) 25 mg PO BID [facility] Stop: 11/21/16 21:01 Montelukast Sodium (Singulair) 10 mg PO QPM [facility] Stop: 11/17/16 18:01 Last Admin: 05/21/16 19:26 Dose: 10 mg Naloxone HCl (Narcan) 0.4 mg IVP Q2MIN PRN PRN Reason: Opioid Reversal Stop: 11/16/16 01:51 Omeprazole (Prilosec) 40 mg PO DAILY@0630 [facility] PRN Reason: Protocol Stop: 11/21/16 06:31 Last Admin: 05/22/16 06:04 Dose: 40 mg Ondansetron HCl (Zofran) 4 mg IVP Q4HR PRN; Protocol PRN Reason: Nausea Stop: 11/16/16 20:01 Last Admin: 05/21/16 22:14 Dose: 4 mg Oxycodone/Acetaminophen (Percocet 5/325) 1 each PO Q4H PRN PRN Reason: pain not relieved by Tylenol Stop: 11/20/16 13:21 Last Admin: 05/22/16 04:56 Dose: 1 each Potassium Chloride (Potassium Chloride) 40 meq PO DAILY PRN PRN Reason: Hypokalemia Stop: 11/20/16 05:49 - Imaging and Cardiology Chest Xray: report reviewed Stress Test: report reviewed Echo: report reviewed - EKG Interpretation EKG results cardiology: personally reviewed (afib with RVR), other (24 hour telemetry reviewed with average heart rate 94. Patient noted to have paroxysmal atrial fibrillation with RVR this morning, currently sinus rhythm in the 80s on telemetry) Consult Discharge Plan - Plan Referrals: Jer Juarez MD [Non-Partnered Physician] - <Estefani Peterson - Last Filed: 05/22/16 14:09> Assessment and Plan Discussion w patient/family: The assessment and plan as outlined above was discussed with the patient and/or family members who expressed understanding and agreement. All questions were answered. Thank you for involving us in the care of your patient. Please call with any questions. History of Present Illness History of present illness: Ms. Sexton is a 76 year old female All Systems Review: A 10-system review of systems was performed and is negative for pertinent findings except as documented above in the HPI. Physical Examination Vital Signs, Last 4 Hours Temp Pulse Resp BP Pulse Ox 05/22/16 11:45 98.5 F 95 18 163/97 97 Results 05/22/16 03:04 05/22/16 03:04 Lab Results 05/22/16 05/22/16 05/22/16 03:04 03:04 03:04 WBC 7.6 Hgb 9.7 L Hct 29.3 L Plt Count 277 INR 1.2 APTT 47.1 H Sodium Potassium Chloride Carbon Dioxide BUN Creatinine Glucose Calcium Magnesium TSH 05/22/16 05/22/16 05/22/16 03:04 10:31 10:31 WBC Hgb Hct Plt Count INR APTT 79.3 H D Sodium 135 L Potassium 3.7 Chloride 106 Carbon Dioxide 23 BUN 14 Creatinine 0.49 L Glucose 81 Calcium 7.7 L Magnesium 1.6 TSH 0.616 - Attending Attestation I examined this patient and my medical decision-making was reviewed with the CONSTRUCTION CODE ADMINISTRATOR/PA/Advanced Practice Nurse/Resident Physician. I agree with the documented findings, disposition and treatment plan. Ms. Sexton developed post operative AF after small bowel resection. Cardizem drip was unsuccessful and therefore Amiod gtt was started. She returned to NSR until this morning when using a nebulized treatment she went back into AF. She again is now back in NSR. It is reasonable to continue amiodarone for now which can be readdressed as an outpatient. In regards to anticoagulation, I had a detailed conversation with the patient and her . She is at elevated risk for developing a CVA (CHADSVASC 4) and she is unaware that she is in AF. Therefore, we have recommended full anticoagulation. However, we would like to observe her for the next 24h while on heparin and review her blood counts tomorrow. If they are stable and there's no indication for bleeding, we would recommend a NOAC as long as ok with the surgical team. In addition, she has a murmur consistent with aortic stenosis. 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 She claims however to have had a murmur since childhood so this very well could be a congenital abnormality. We briefly discussed LIUDMILA but this can be later discussed as an outpatient and does not need to be addressed now.
[2016-05-22 10:43] LABS: Magnesium 1.6 mg/dL (1.6-2.6)
[2016-05-22 11:10] LABS: Thyroid Stimulating Hormone 0.616 mcIU/mL (0.350-4.840)
[2016-05-22] MEDS ORDERED: Magnesium Sulfate 2 GM in D5% in Water 100 ML IVPB ONE (12:15)
[2016-05-22] MEDS: *HR* HYDROcodone/Acet 5/325 mg TABLET PO PRN ×2 (13:14→19:19)
--- NOTE | 2016-05-22 13:20 | General Surgery Progress Note ---
Date of Encounter: 05/22/16 Time of Encounter: 12:45 Subjective Narrative: General Surgery - POD #4 - recurrent Atrial fibrillation, RVR. Patient otherwise without complaints. Appreciate cardiology consultation. Afebrile, 98.5, pulse currently 95 however it was reported to be as high as 140 earlier today. Respiratory rate 18, blood pressure 163/97. Lungs: Clear to auscultation Abdomen: Soft, nontender. Active bowel sounds. Patient indicates that she is moving her bowels frequently. Tolerating full liquid diet. Midline incision clean and dry. Laboratories: White count 7.6; hemoglobin 9.7 with hematocrit 29.3. - H&H stable but low; platelet count 277,000 PT 12.6, INR 1.2; a PTT 79.3 consistent with heparin therapy Electrolytes - sodium 135, potassium 3.7, chloride 106, BUN 14, creatinine 0.49. Magnesium 1.6 calcium 7.7 but albumin is depressed at 2.3. Impression: POD #4 s/p exploratory celiotomy with small bowel resection to release SBO. Acceptable abdominal post op status. Post op anemia post op atrial fibrillation, RVR - currently recurrent / paroxysmal despite therapy. Possibly due to aerosol treatments - these have been stopped. Hypertension Heparin anticoagulation Objective Vital Signs - Last 8 Hours Temp Pulse Resp BP Pulse Ox 05/22/16 11:45 98.5 F 95 18 163/97 97 05/22/16 07:10 98.3 F 86 18 144/78 100 Intake and Output 05/21/16 05/22/16 05/22/16 23:59 07:59 15:59 Intake Total 84 / 84 232 / 232 Balance 84 / 84 232 / 232 Intake: IV Fluids 84 112 / 112 Heparin 25,000 UNIT/500 112 / 112 ML D5W 25,000 unit In 500 ml @ 14 UNIT/KG/HR 14. 672 mls/hr IVC .Q24H [facility] Rx#:[id number] Oral 120 / 120 Other: Meal Breakfast Percent of Meal Consumed 10% Stool Size Small Moderate Stool Consistency soft loose Stool Characteristics Normal for Patient Stool Color Brown Brown # Voids 3 1 # Bowel Movements 1 1 - Labs 05/22/16 03:04 05/22/16 03:04 Diabetes panel 05/22/16 Range/Units 03:04 Sodium 135 L (136-145) mEq/L Potassium 3.7 (3.5-4.5) mEq/L Chloride 106 (98-109) mEq/L Carbon Dioxide 23 (19-29) mEq/L BUN 14 (7-20) mg/dL Creatinine 0.49 L (0.57-1.11) mg/dL Glucose 81 (70-99) mg/dL Calcium 7.7 L (8.6-10.8) mg/dL Thyroid panel 05/22/16 Range/Units 10:31 TSH 0.616 (0.350-4.840) mcIU/mL Calcium panel 05/22/16 Range/Units 03:04 Calcium 7.7 L (8.6-10.8) mg/dL Pituitary panel 05/22/16 05/22/16 Range/Units 03:04 10:31 Sodium 135 L (136-145) mEq/L Potassium 3.7 (3.5-4.5) mEq/L Chloride 106 (98-109) mEq/L Carbon Dioxide 23 (19-29) mEq/L BUN 14 (7-20) mg/dL Creatinine 0.49 L (0.57-1.11) mg/dL Glucose 81 (70-99) mg/dL Calcium 7.7 L (8.6-10.8) mg/dL TSH 0.616 (0.350-4.840) mcIU/mL Adrenal panel 05/22/16 Range/Units 03:04 Sodium 135 L (136-145) mEq/L Potassium 3.7 (3.5-4.5) mEq/L Chloride 106 (98-109) mEq/L Carbon Dioxide 23 (19-29) mEq/L BUN 14 (7-20) mg/dL Creatinine 0.49 L (0.57-1.11) mg/dL Glucose 81 (70-99) mg/dL Calcium 7.7 L (8.6-10.8) mg/dL - VTE Documentation of Mechanical Device: Intermittent pneumatic compression device Consult Discharge Plan - Plan Referrals: Jer Jaurez MD [Non-Partnered Physician] -
[2016-05-22] MEDS: Ondansetron 4 MG/2 ML VIAL IVP PRN (20:00)
[2016-05-23] MEDS: *HR* HYDROcodone/Acet 5/325 mg TABLET PO PRN ×3 (01:14→13:28)
[2016-05-23] MEDS ORDERED: Levalbuterol Neb 1.25 MG/3 ML IH PRN (02:30)
[2016-05-23] MEDS ORDERED: Furosemide 20 MG/2 ML VIAL IVP ONE (02:31)
[2016-05-23 04:25] LABS: Basophils % 0.1 %; Eosinophils # 0.1 K/mcL (0.0-0.6); Eosinophils % 0.8 %; Hematocrit 35.7 % (35.3-44.9); Immature Granulocytes % 0.6 % (0-4); Lymphocytes # 0.9 K/mcL (0.6-4.6); Lymphocytes % 11.9 %; Mean Corpuscular HGB Conc 32.5 g/dL (31.6-35.5); Mean Corpuscular Hemoglobin 27.8 pg (28.0-33.3); Mean Corpuscular Volume 85.6 fL (83.0-100.0); Mean Platelet Volume 9.2 fL (9.4-12.4); Monocytes # 0.5 K/mcL (0.0-1.3); Neutrophils # 6.3 K/mcL (1.6-8.9); Platelet Count 339 K/mcL (140-400); Red Blood Count 4.17 M/mcL (3.82-4.97); Red Cell Distribution Width 14.3 % (11.5-14.5); Segmented Neutrophils % 80.6 %
[2016-05-23 04:28] LABS: Hemoglobin 11.6 g/dL (11.5-15.4)
[2016-05-23 04:34] LABS: BUN/Creatinine Ratio 20 (6-26); Blood Urea Nitrogen 11 mg/dL (7-20); Calcium 8.6 mg/dL (8.6-10.8); Carbon Dioxide 25 mEq/L (19-29); Chloride 102 mEq/L (98-109); Glucose 103 mg/dL (70-99); Magnesium 1.7 mg/dL (1.6-2.6); Osmolality,Calculated 284 (280-300); Phosphorous 3.4 mg/dL (2.3-4.7); Potassium 3.4 mEq/L (3.5-4.5); Sodium 137 mEq/L (136-145); eGFR For African Americans > 60 (> 60); eGFR For Non-African Americans > 60 (> 60)
[2016-05-23] MEDS: *HR* Amiodarone 200 MG TABLET PO SCH (08:27)
[2016-05-23] MEDS: Heparin 25,000 UNIT/500 ML D5W 25,000 UNIT/500 ML MLS IVC SCH (08:28)
[2016-05-23] MEDS: Ondansetron 4 MG/2 ML VIAL IVP PRN ×2 (08:37→13:28)
--- NOTE | 2016-05-23 09:24 | Cardiology Progress Note ---
Date of Encounter: 05/23/16 Time of Encounter: 09:30 Assessment and Plan (1) Small bowel obstruction Current Visit: Yes Status: Resolved Per Cardiology: Initially admitted on 05/17/2016 due to persistent nausea, emesis and abdominal pain from small bowel obstruction. She was admitted to hospitalist service and surgery was consulted. Patient showed no improvement with conservative medical management and had to undergo surgery on 05/18/2016 with exploratory celiotomy, small bowel resection and lysis of adhesions. Surgery following. Afebrile, no leukocytosis. (2) Atrial fibrillation with rapid ventricular response Current Visit: Yes Status: Acute Per Cardiology: Apparent new onset atrial fibrillation in setting of small bowel obstruction s/ p exploratory celiotomy, small bowel resection, and lysis of adhesions. Telemetry reviewed with average heart rate 70 over the past 12 hours, sinus rhythm, no recurrence of atrial fibrillation noted. On amiodarone 200 mg by mouth daily and Lopressor 25 mg by mouth twice a day. Magnesium improved to 1.7. TSH ok. Echo reviewed and showed mild aortic stenosis, aortic valve not well visualized and cannot determine if valve bicuspid with recommendations for consideration of LIUDMILA (has a murmur)-- can be evaluated in outpatient setting once recovered from acute events. Negative nonexercise nuclear stress test September 2012. Regarding long-term anticoagulation, [id number] 4. Currently on IV heparin drip. Hemoglobin and hematocrit from admission down from 13.5-9.7 and 38.2- 29.3. Op report reviewed with estimated blood loss of 200ml. H&H improved today. She reports remote Hx of gastric ulcers. No recent falls. Discussed and reviewed with Dr. Peterson, will discontinue IV heparin drip and start Eliquis 2.5mg PO BID (weight is less than 60 kg, she is a 76 which is less than 80, and has normal kidney function). However, with recent surgery with anemia and with her history of GI bleed, will start with lower dose of Eliquis. Will consider increasing to 5 mg by mouth twice a day in outpatient setting if tolerates. Patient aware of risk. We'll sign off, re-consult as needed, follow-up in outpatient setting. All questions answered. (3) Elevated troponin I measurement Current Visit: Yes Status: Acute Per Cardiology: Troponin initially negative at 0.01 with subsequent increase to 0.12 and 0.08. No previous elevated troponins noted. Last stress test negative for ischemia in September 2012. ECG with no signs of ischemia. Denies CP. Suspect demand ischemia in setting of A. fib with RVR. No cardiac rehab consult warranted. Discussion w patient/family: The assessment and plan as outlined above was discussed with the patient who expressed understanding and agreement. All questions were answered. Thank you for involving us in the care of your patient. Please call with any questions. Subjective Principal diagnosis: Rapid heart rate Interval history: Patient denies any concerns or complaints overnight. Denies any chest pain, shortness of breath, palpitations. Denies any active bleeding or blood loss. Objective Vital Signs, Last 4 Hours Temp Pulse Resp BP Pulse Ox 05/23/16 06:30 98.2 F 77 16 122/68 98 General: Conversant, No Apparent Distress HEENT: Atraumatic, Normocephaly Cardiac: Reg Rate and Rhythm, Normal S1 and S2, No Murmur Lungs: Normal Breath Sounds, No Wheeze, Rales, Rhonchi Extremities: No Edema Results 05/23/16 04:12 05/23/16 04:12 Lab Results Laboratory Tests 05/23/16 04:12 Hgb 11.6 D Hct 35.7 Active Medications Acetaminophen (Tylenol) 650 mg PO Q6HR PRN PRN Reason: Pain Stop: 11/19/16 12:56 Acetaminophen/Hydrocodone Bitart (Bartlett 5-325 Mg) 1 tab PO Q6HR PRN PRN Reason: pain not relieved by Tylenol Stop: 11/21/16 12:57 Last Admin: 05/23/16 07:14 Dose: 1 tab Amiodarone HCl (Cordarone) 200 mg PO DAILY [facility] Stop: 11/20/16 06:16 Last Admin: 05/23/16 08:27 Dose: 200 mg Apixaban (Eliquis) 2.5 mg PO BID [facility] Stop: 11/22/16 09:31 Hydralazine HCl (Hydralazine) 10 mg IVP Q6HR PRN PRN Reason: Hypertension Stop: 11/17/16 13:45 Magnesium Sulfate 2 gm/ (Dextrose) 104 mls @ 50 mls/hr IVPB Q6H PRN PRN Reason: Hypomagnesemia Stop: 11/20/16 05:49 Levalbuterol HCl (Xopenex) 1.25 mg IH [id number] PRN PRN Reason: Shortness Of Breath/Wheezing Stop: 11/22/16 04:01 Last Admin: 05/23/16 02:52 Dose: 1.25 mg Metoprolol Tartrate (Lopressor) 5 mg IVP Q6HR PRN PRN Reason: Heart Rate- High Stop: 11/21/16 05:56 Last Admin: 05/22/16 06:03 Dose: 5 mg Metoprolol Tartrate (Lopressor) 25 mg PO BID [facility] Stop: 11/21/16 21:01 Last Admin: 05/23/16 08:26 Dose: 25 mg Montelukast Sodium (Singulair) 10 mg PO QPM [facility] Stop: 11/17/16 18:01 Last Admin: 05/22/16 17:03 Dose: 10 mg Naloxone HCl (Narcan) 0.4 mg IVP Q2MIN PRN PRN Reason: Opioid Reversal Stop: 11/16/16 01:51 Omeprazole (Prilosec) 40 mg PO DAILY@0630 [facility] PRN Reason: Protocol Stop: 11/21/16 06:31 Last Admin: 05/23/16 07:07 Dose: 40 mg Ondansetron HCl (Zofran) 4 mg IVP Q4HR PRN; Protocol PRN Reason: Nausea Stop: 11/16/16 20:01 Last Admin: 05/23/16 08:37 Dose: 4 mg Potassium Chloride (Potassium Chloride) 20 meq PO DAILY [facility] Stop: 11/21/16 13:01 Last Admin: 05/23/16 08:27 Dose: 20 meq - EKG Interpretation EKG results cardiology: other (24 hour telemetry reviewed with average heart rate 80, sinus rhythm, no recurrence of atrial fibrillation noted over the past 12 hrs) - VTE Documentation of Mechanical Device: Intermittent pneumatic compression device Consult Discharge Plan - Plan Referrals: Jer Juarez MD [Non-Partnered Physician] -
[2016-05-23] MEDS ORDERED: APIXABAN 5 MG TABLET PO SCH (09:30)
[2016-05-23 11:03] VITALS: BP 150/83
--- NOTE | 2016-05-23 12:22 | General Surgery Progress Note ---
Date of Encounter: 05/23/16 Time of Encounter: 12:04 Subjective Patient reports: no new complaints, feels better Narrative: General Surgery Progress Note / Discharge Summary POD #5 - patient feeling well, voicing no complaints except for her inability to sleep in the hospital. Her recurrent/paroxysmal atrial fibrillation with RVR is controlled. Patient remains afebrile, 98.1, current pulse 73; respiratory rate 18, blood pressure 150/83. SPO2 on room air 95-98%. Lungs: Clear Cardiac: Rate is currently regular; telemetry showing sinus rhythm. Recent echo demonstrated mild aortic stenosis; the aortic valve was not well visualized with recommendation to consider a LIUDMILA as an outpatient Abdomen: Soft, nondistended; active bowel sounds. Minimal incisional tenderness as expected. The incision is clean dry and healing well. Laboratory show normal white count 7.8; hemoglobin 11.6 with hematocrit 35.7 ( prior indications anemia likely due to hydration) Appreciate cardiology's assistance in the care of this patient Hospital course: 76-year-old female admitted to [facility] after presenting to the emergency department, 05/16/2016, with abrupt onset abdominal pain nausea and vomiting that began the previous day. On presentation to the emergency department, a CT of the abdomen and pelvis demonstrated dilated proximal loops of small bowel with an apparent transition zone involving the proximal ileum in the right lower quadrant. Patient had similar symptoms approximately 1 year ago (05/26/2015), with similar CT findings with the symptoms abated without surgical intervention. The patient was admitted, kept NPO, hydrated via IV Fluids and Surgical Consultation was placed. The patient's symptoms persisted with continued right lower quadrant abdominal pain prompting surgical intervention which was completed . An exploratory celiotomy with a small bowel resection and stapled enteroenterostomy was completed to release the small bowel obstruction. The patient tolerated the procedure well and remained hemodynamically stable but during the postoperative course developed atrial fibrillation with rapid ventricular response as high as 190 bpm. The patient was transferred to ICU for continued management and care of these new events. The patient continued to recover from the transabdominal surgery but experienced recurrent / paroxysmal atrial fibrillation with RVR. Cardiology was consulted and their assistance was greatly appreciated. The patient's cardiac status was stabilized with the patient discharged home in stable condition 2016. Impression: POD #5 status post exploratory celiotomy with small bowel resection , stapled enteroenterostomy to address a small bowel obstruction. Patient has demonstrated satisfactory recovery from the surgery. Patient tolerating diet and moving bowels without difficulty. Recurrent/paroxysmal atrial fibrillation with RVR - currently controlled Postoperative anemia - likely dilutional, has spontaneously corrected hypertensiion - controlled anticoagulation - due to the Atrial fibrillation - heparin has been converted to Apixaban (Eloquis) 2.5 mg BID Morbid obesity - s/p gastric bypass in the remote past. The recent SBO was likely due to adhesions related to this surgery. Breast cancer - stable with no eivdence recurrent or metastatic disease Chronic joint pain history GERD/PUD Heart murmur, mild aortic stenosis Plan: discharge home follow up as outpatient in my office, , 05/27/16 Follow up with Cardiology, Dr Peterson, as scheduled Instructions: Regular diet Activities as tolerated, lifting limited to less than 20 pounds Follow up my office, , 05/27/16, patient call office in a.m. to make this appointment Follow-up with Dr. Peterson as scheduled. continue home meds as before Prescription Apixaban Tylenol, ibuprofen, Motrin, Aleve, etc. as needed for pain Prescription for hydrocodone/acetaminophen 5/325 #20, one every 6 hours as needed for pain not relieved by [id number]-[id number] medications Objective Vital Signs - Last 8 Hours Temp Pulse Resp BP Pulse Ox 05/23/16 11:02 98.1 F 73 18 150/83 95 05/23/16 06:30 98.2 F 77 16 122/68 98 Intake and Output 05/22/16 05/23/16 05/23/16 23:59 07:59 15:59 Intake Total 303 / 303 100.5 / 100.5 360 / 360 Output Total 600 / 600 Balance 303 / 303 -499.5 / -499.5 360 / 360 Intake: IV Fluids 183 / 183 100.5 / 100.5 Heparin 25,000 UNIT/500 183 / 183 100.5 / 100.5 ML D5W 25,000 unit In 500 ml @ 14 UNIT/KG/HR 14. 672 mls/hr IVC .Q24H MILADY Rx#:[id number] Oral 120 / 120 360 / 360 Output: Urine 600 / 600 Other: Meal Dinner Breakfast Percent of Meal Consumed 10% 10% Stool Size Small Small Moderate Stool Consistency liquid liquid formed Stool Characteristics Normal for Patient Stool Color Brown Brown Brown # Voids 1 1 1 # Bowel Movements 1 1 - Labs 05/23/16 04:12 05/23/16 04:12 Diabetes panel 05/23/16 Range/Units 04:12 Sodium 137 (136-145) mEq/L Potassium 3.4 L (3.5-4.5) mEq/L Chloride 102 (98-109) mEq/L Carbon Dioxide 25 (19-29) mEq/L BUN 11 (7-20) mg/dL Creatinine 0.56 L (0.57-1.11) mg/dL Glucose 103 H (70-99) mg/dL Calcium 8.6 (8.6-10.8) mg/dL Calcium panel 05/23/16 Range/Units 04:12 Calcium 8.6 (8.6-10.8) mg/dL Phosphorus 3.4 (2.3-4.7) mg/dL Pituitary panel 05/23/16 Range/Units 04:12 Sodium 137 (136-145) mEq/L Potassium 3.4 L (3.5-4.5) mEq/L Chloride 102 (98-109) mEq/L Carbon Dioxide 25 (19-29) mEq/L BUN 11 (7-20) mg/dL Creatinine 0.56 L (0.57-1.11) mg/dL Glucose 103 H (70-99) mg/dL Calcium 8.6 (8.6-10.8) mg/dL Adrenal panel 05/23/16 Range/Units 04:12 Sodium 137 (136-145) mEq/L Potassium 3.4 L (3.5-4.5) mEq/L Chloride 102 (98-109) mEq/L Carbon Dioxide 25 (19-29) mEq/L BUN 11 (7-20) mg/dL Creatinine 0.56 L (0.57-1.11) mg/dL Glucose 103 H (70-99) mg/dL Calcium 8.6 (8.6-10.8) mg/dL - VTE Documentation of Mechanical Device: Intermittent pneumatic compression device Consult Discharge Plan - Plan Referrals: Jer uJarez MD [Non-Partnered Physician] -
--- NOTE | 2016-05-23 12:49 | Discharge Summary ---
Outpatient Proc Discharge Plan - Plan Additional Instructions: Regular diet Patient may shower, wash incision with soap and water Activity as tolerated; lifting limited to less than 20 pounds Patient is to resume her usual home meds Tylenol, ibuprofen, Motrin, Advil, Aleve, etc. as needed for pain Prescription for hydrocodone/acetaminophen ([place]) 5/325 #20, one every 6 hours as needed for pain not relieved by [id number]-[id number] medications Follow-up my office, 05/27/16; patient call office in a.m. to make this appointment Follow up with Dr. Peterson, as scheduled. Continue Apixaban 2.5 mg by mouth twice daily after discharge home. Prescriptions: HYDROcodone/Acet 5/325 mg [[place] 5-325 mg] 1 tab PO Q6HR PRN #20 tablet PRN Reason: pain Amiodarone [Cordarone] 200 mg PO DAILY #30 tablet Apixaban [Eliquis] 2.5 mg PO BID #60 tablet Metoprolol [Lopressor] 25 mg PO BID #60 tablet Home Medications: Albuterol Sulfate [Proair Respiclick] 2 puff IH DAILY PRN 05/26/15 [History] Docusate Sodium [Colace] 200 mg PO BID PRN 05/26/15 [History] Ferrous Gluconate 324 mg PO QAM 05/26/15 [History] Lisinopril [Zestril] 40 mg PO QAM 05/26/15 [History] Montelukast [Singulair] 10 mg PO QPM 05/26/15 [History] Omeprazole [PriLOSEC] 40 mg PO DAILY 05/26/15 [History] Ondansetron [Zofran] 4 mg PO BID PRN 05/26/15 [History] TraMADol [Ultram] 50 mg PO BID PRN 05/26/15 [History] Cyanocobalamin (B-12) [Vitamin B12] 1,000 mcg SQ QMONTH 05/17/16 [History] Gabapentin [Neurontin] 100 mg PO HS 05/17/16 [History] Promethazine/Codeine [Phenergan/Codeine] 5 ml PO Q6HR PRN 05/17/16 [History] Acetaminophen [Tylenol] 650 mg PO Q6HR PRN #0 tablet 05/23/16 [Rx] Amiodarone [Cordarone] 200 mg PO DAILY #30 tablet 05/23/16 [Rx] Apixaban [Eliquis] 2.5 mg PO BID #60 tablet 05/23/16 [Rx] HYDROcodone/Acet 5/325 mg [[place] 5-325 mg] 1 tab PO Q6HR PRN #20 tablet [Rx] Metoprolol [Lopressor] 25 mg PO BID #60 tablet 05/23/16 [Rx]
== END 2016-05-23 13:50 | disposition home or self-care (01) | DRG 330 ==
LOC: EMEROO 22:05 → 3ANU 05-17 02:31 → SUATTDRO 05-17 02:31 → 3ANU 05-17 02:35 → ICNU 05-20 12:36 → 3NENU 05-21 15:43
PROVIDERS: ADMIT Internal Medicine Sleep Medicine; ATTEND Surgery

== ENCOUNTER 2017-05-15 09:46 | Inpatient (IN) ==
[2017-05-15] MEDS ORDERED: Ipratropium/Albuterol Neb 3 ML IH ONE (10:05)
[2017-05-15] MEDS ORDERED: 0.9 % Sodium Chloride 1,000 ML IVC ONE (10:05)
[2017-05-15] MEDS ORDERED: methylPREDNISolone 125 MG/2 ML VIAL IVP ONE (10:05)
--- NOTE | 2017-05-15 10:10 | Emergency Department Note ---
Disposition Clinical Impression: Pneumonia Qualifiers: Pneumonia type: due to unspecified organism Laterality: right Lung location: unspecified part of lung Qualified Code(s): J18.9 - Pneumonia, unspecified organism Disposition: Admitted As Inpatient Condition: Fair SOB HPI - General Chief Complaint: ED Shortness of Breath/Dyspnea Stated Complaint: "pneumonia"/lung pain Time Seen by Provider: 05/15/17 09:59 Source: patient Mode of arrival: ambulatory Limitations: no limitations Nursing Notes Reviewed: Yes Vital Signs Reviewed: Yes - History of Present Illness Patient presents for evaluation of shortness of breath and chest tightness. Symptoms started on [place] madelyn and progressively got worse. She was treated for asthma exacerbation by her PCP with antibiotics and steroids both of which she does not know the type or dose. Patient states that today the chest discomfort is described as tightness in the center chest. Partially relieved with albuterol that she received by squad. Patient describes fatigue and generalized body aches. She works at the [employer] and has been exposed to various illnesses. Luke for A. fib - Related Data Home Medications Medication Instructions Recorded Confirmed Apixaban [Eliquis] 5 mg PO BID 10/02/16 05/15/17 Lisinopril [Zestril] 40 mg PO DAILY 10/02/16 05/15/17 Metoprolol [Lopressor] 25 mg PO BID 10/02/16 05/15/17 Montelukast [Singulair] 10 mg PO HS 10/02/16 05/15/17 Albuterol Sulfate [Albuterol 2 puff IH Q4H PRN 10/27/16 05/15/17 Inhaler] Omeprazole [PriLOSEC] 40 mg PO DAILY 10/27/16 05/15/17 Tramadol HCl [Ultram] 50 mg PO TID PRN 10/27/16 05/15/17 Albuterol Neb [Proventil Neb] 2.5 mg IH Q4HR PRN 05/15/17 05/15/17 Amoxicillin/Clavulanate [Augmentin] 1 tab PO BID 05/15/17 05/15/17 Previous Rx's Medication Instructions Recorded Ondansetron HCl [Zofran] 4 mg PO Q6HR PRN #8 tablet 10/02/16 Allergies Allergy/AdvReac Type Severity Reaction Status Date / Time No Known Allergies Allergy Verified 05/30/16 01:35 All systems ED: reviewed and negative except as stated. Review of Systems: As Per HPI Constitutional: Reports: chills, weakness. Denies: fever Cardiovascular: Reports: chest pain, dyspnea on exertion Respiratory: Reports: cough, wheezes. Denies: hemoptysis, sputum production Gastrointestinal: Denies: nausea, vomiting, diarrhea Musculoskeletal: Denies: back pain, neck pain Integumentary: Denies: rash, abrasion Psychiatric: Denies: anxiety Endocrine: Reports: fatigue Past Medical History - Past Medical History Medical history: Reports: arthritis, asthma, atrial fibrillation, cancer, diabetes, GERD, hypertension Surgical history: Reports: appendectomy, breast surgery, cholecystectomy, hysterectomy, orthopedic, other, other, bariatric surgery Psychiatric history: Reports: no psych history WOMEN'S [employer] history: Reports: no WOMEN'S [employer] history - Social History Smoking Status: Never smoker Smokeless Tobacco Status: No Alcohol use: Reports: none Drug use: Reports: none Physical Exam General: Well appearing, nontoxic, no acute distress Head: Normocephalic Atraumatic Eyes: PERRL, EOMI ENT: Airway patent, no stridor Neck: supple, no meningismus Chest: Diffuse wheezing bilaterally Cardiac: Regular rate and rhythm, no murmurs, rubs or gallops Abdomen: soft, nontender, nondistended; no guarding, rebound, or tenderness to percussion Musculoskeletal: Calves symmetric, nontender, no palpable cord Skin: No rash, normal skin tone Neuro: Alert and Oriented to person, place, and time; No focal deficit, CN 2-12 symmetric and intact - General General appearance: alert, in no apparent distress Course - Reevaluation(s) Reevaluation #1: Patient has evidence of pneumonia on chest x-ray. Patient failed outpatient management. Patient continues to have wheezing after albuterol and steroids. Patient will need continued monitoring. - Consultations Consultation #1: Discussed with Dr. Jasmine. Patient accepted for admission. Vital Signs Temperature 98.3 F 05/15/17 09:50 Pulse Rate 69 05/15/17 09:50 Respiratory Rate 16 05/15/17 09:50 Blood Pressure 150/90 05/15/17 09:50 O2 Sat by Pulse Oximetry 99 05/15/17 09:50 Temperature 98.1 F 05/15/17 13:25 Pulse Rate 86 05/15/17 13:25 Respiratory Rate 16 05/15/17 13:25 Blood Pressure 148/86 05/15/17 13:25 O2 Sat by Pulse Oximetry 100 05/15/17 13:25 Oxygen Delivery Oxygen Delivery Room Air Shortness of Breath/Dyspnea - Medical Records Medical records reviewed: Yes I reviewed the patient's medical records. - Lab Data Lab results reviewed: Yes I reviewed the patient's lab results. Result diagrams: 05/15/17 10:21 05/15/17 10:21 Lab Results 05/15/17 05/15/17 05/15/17 Range/Units 10:21 10:21 10:21 WBC 4.1 L (4.3-11.1) K/mcL RBC 4.00 (3.82-4.97) M/mcL Hgb 10.1 L (11.5-15.4) g/dL Hct 32.7 L (35.3-44.9) % MCV 81.8 L (83.0-100.0) fL MCH 25.3 L (28.0-33.3) pg MCHC 30.9 L (31.6-35.5) g/dL RDW 18.0 H (11.5-14.5) % Plt Count 198 (140-400) K/mcL MPV 9.9 (9.4-12.4) fL Immature Gran % 0.2 (0-4) % Seg Neutrophils % 61.4 % Lymphocytes % 26.2 % Monocytes % 10.3 % Eosinophils % 1.7 % Basophils % 0.2 % Neutrophils # 2.5 (1.6-8.9) K/mcL Lymphocytes # 1.1 (0.6-4.6) K/mcL Monocytes # 0.4 (0.0-1.3) K/mcL Eosinophils # 0.1 (0.0-0.6) K/mcL Basophils # 0.0 (0.0-0.2) K/mcL Immature Plt Fraction 2.2 (1.1-6.1) % Sodium 138 (136-145) mEq/L Potassium 3.4 L (3.5-5.1) mEq/L Chloride 108 H (98-107) mEq/L Carbon Dioxide 24 (23-29) mEq/L BUN 28 H (8-23) mg/dL Creatinine 0.55 L (0.60-1.20) mg/dL Est GFR ( Amer) > 60 (> 60) Est GFR (Non-Af Amer) > 60 (> 60) BUN/Creatinine Ratio 51 H (6-26) Glucose 85 (70-105) mg/dL Calculated Osmolality 291 (280-300) Lactic Acid (0.5-2.2) mmol/L Calcium 8.0 L (8.6-10.3) mg/dL Troponin I < 0.03 (< 0.04) ng/mL B-Natriuretic Peptide (Less than 100) pg/mL 05/15/17 05/15/17 Range/Units 10:21 10:24 WBC (4.3-11.1) K/mcL RBC (3.82-4.97) M/mcL Hgb (11.5-15.4) g/dL Hct (35.3-44.9) % MCV (83.0-100.0) fL MCH (28.0-33.3) pg MCHC (31.6-35.5) g/dL RDW (11.5-14.5) % Plt Count (140-400) K/mcL MPV (9.4-12.4) fL Immature Gran % (0-4) % Seg Neutrophils % % Lymphocytes % % Monocytes % % Eosinophils % % Basophils % % Neutrophils # (1.6-8.9) K/mcL Lymphocytes # (0.6-4.6) K/mcL Monocytes # (0.0-1.3) K/mcL Eosinophils # (0.0-0.6) K/mcL Basophils # (0.0-0.2) K/mcL Immature Plt Fraction (1.1-6.1) % Sodium (136-145) mEq/L Potassium (3.5-5.1) mEq/L Chloride (98-107) mEq/L Carbon Dioxide (23-29) mEq/L BUN (8-23) mg/dL Creatinine (0.60-1.20) mg/dL Est GFR ( Amer) (> 60) Est GFR (Non-Af Amer) (> 60) BUN/Creatinine Ratio (6-26) Glucose (70-105) mg/dL Calculated Osmolality (280-300) Lactic Acid 0.5 (0.5-2.2) mmol/L Calcium (8.6-10.3) mg/dL Troponin I (< 0.04) ng/mL B-Natriuretic Peptide 92 (Less than 100) pg/mL - Radiology Data Radiology results reviewed: Yes I reviewed the patient's radiology results. Chest X-Ray 05/15/17 10:05 IMPRESSION: Left mid lung field airspace opacity, compatible with atelectasis versus early pneumonia in the appropriate clinical setting slightly increased pulmonary lung volumes, which may represent obstructive lung disease. Recommend follow-up short-term chest radiography to confirm resolution of this finding. Mild cardiomegaly, unchanged. D/ / 05/15/2017 10:55:21 Binu Salter MD / uyen Interpreting Provider: Binu Salter MD Attestation Statement - Attestation Attestation: I examined this patient and my medical decision-making was reviewed with the Resident Physician, Dr. Ham. I agree with the documented findings, disposition and treatment plan as described except to the extent set forth below. Patient is a 77-year-old white female with a history of asthma who presents to emergency department today brought by her daughter with concerns for gradually worsening generalized fatigue, body aches, with gradually worsening shortness of breath and chest tightness. Patient was seen by her family doctor shortly after [place] for an exacerbation of her "asthma", and was started on antibiotics and steroids. Despite taking these medications as directed patient has gradually worsened since that time. Patient reports that her is home sick as well and recently diagnosed with pneumonia. Patient cannot remember the name of the antibiotic she been taking. Patient's having no signs of respiratory distress conversational dyspnea and no hypoxia in the ed. I agree with patient's physical exam findings as documented. Patient's vital signs are stable Patient received breathing treatments and steroids here in the emergency department as well as baby aspirin. Shows sinus rhythm without ischemia EKG shows diffuse nonspecific changes. Patient's chest x-ray shows findings suspicious for a left mid lung infiltrate. These go along with patient's clinical symptoms. Patient's lactate is within normal limits we will go ahead and start the patient on IV Levaquin and flu swab is pending at this time. Plan will be to admit the patient for failed outpatient antibiotic management and ongoing IV antibiotic therapy.
[2017-05-15 10:32] LABS: Basophils % 0.2 %; Eosinophils # 0.1 K/mcL (0.0-0.6); Eosinophils % 1.7 %; Hematocrit 32.7 % (35.3-44.9); Hemoglobin 10.1 g/dL (11.5-15.4); Immature Granulocytes % 0.2 % (0-4); Immature Platelets 2.2 % (1.1-6.1); Lymphocytes # 1.1 K/mcL (0.6-4.6); Lymphocytes % 26.2 %; Mean Corpuscular HGB Conc 30.9 g/dL (31.6-35.5); Mean Corpuscular Hemoglobin 25.3 pg (28.0-33.3); Mean Corpuscular Volume 81.8 fL (83.0-100.0); Mean Platelet Volume 9.9 fL (9.4-12.4); Monocytes # 0.4 K/mcL (0.0-1.3); Monocytes % 10.3 %; Neutrophils # 2.5 K/mcL (1.6-8.9); Platelet Count 198 K/mcL (140-400); Segmented Neutrophils % 61.4 %
[2017-05-15 10:44] LABS: BUN/Creatinine Ratio 51 (6-26); Blood Urea Nitrogen 28 mg/dL (8-23); Carbon Dioxide 24 mEq/L (23-29); Chloride 108 mEq/L (98-107); Glucose 85 mg/dL (70-105); Osmolality,Calculated 291 (280-300); Potassium 3.4 mEq/L (3.5-5.1); Sodium 138 mEq/L (136-145); eGFR For African Americans > 60 (> 60); eGFR For Non-African Americans > 60 (> 60)
[2017-05-15] MEDS ORDERED: Levofloxacin 750 MG/150 ML 750 MG/150 ML BAG IVPB ONE (10:58)
[2017-05-15] MEDS ORDERED: MOM Conc 10 ML UD.LIQ PO PRN (12:33)
[2017-05-15] MEDS ORDERED: Mag Hydrox/Al Hydrox/Simeth 30 ML UDC PO PRN (12:33)
[2017-05-15] MEDS ORDERED: Naloxone 0.4 MG/ML INJ IVP PRN (12:33)
[2017-05-15] MEDS ORDERED: Ipratropium/Albuterol Neb 3 ML IH PRN (12:37)
--- NOTE | 2017-05-15 12:44 | Internal Med History&Physical ---
Addendum entered and electronically signed by Oswald Martinez 05/15/17 12:54: Correction: the side of pneumonia is left instead of right lung, please correct. Original Note: <Oswald Martinez - Last Filed: 05/15/17 12:39> Date of Encounter: 05/15/17 Time of Encounter: 12:39 Assessment and Plan (1) Pneumonia Status: Acute - Pending blood and sputum cx. - continue Levaquin. Qualifiers: Pneumonia type: due to unspecified organism Laterality: right Lung location: unspecified part of lung Qualified Code(s): J18.9 - Pneumonia, unspecified organism (2) COPD exacerbation Status: Acute - continue IV steroid and bronchodilators. (3) Hypokalemia Status: Acute - supplemented at ED, repeat BMP in am. (4) Essential hypertension Status: Chronic - BP stable, continue home meds. (5) Atrial fibrillation with rapid ventricular response Status: Chronic - continue home Eliquis. Internal Medicine - H&P: HPI Admitted From: Emergency Dept Plans for Post Hospital Care: Home History of present illness: Ms. Sexton is a 77 year old female's with past medical history of asthma, hypertension, atrial fibrillation who presented to ED with cough and shortness of breath for a week. Symptoms started on Davon madelyn and progressively got worse. She she reported cough with occasional greenish mucus. She was treated for asthma exacerbation by her PCP with antibiotics and steroids both of which she does not know the type or dose. Patient states that today the chest discomfort is described as tightness in the center chest. Partially relieved with albuterol that she received by squad. Patient describes fatigue and generalized body aches. She works at the [employer] and has been exposed to various illnesses. She reported subjective fever with chills. She denies chest pain, palpitation, edema, or syncope. At the ED, her vital signs were stable. Labs were unremarkable except mild hypokalemia. A chest x-ray revealed pneumonia. She received IV Levaquin and IV steroids with partial relief of symptoms. She will be admitted to the inpatient service for further management. Past Med Surg Social Fam HX - Past Medical History Medical history: arthritis, asthma, atrial fibrillation, cancer, diabetes, GERD , hypertension Psychiatric history: no psych history - Past Surgical History Surgical History: appendectomy, breast surgery, cholecystectomy, hysterectomy, orthopedic, other, other, bariatric surgery - Social History Smoking Status: Never smoker Smokeless Tobacco Status: No Alcohol use: none Drug use: none - Family History Brother Family Member Ethnicity: Non- Living Status: Hx Family Cardiac Disorders: Yes Hx Family Respiratory Disorders: No Hx Family Cancer: Yes Hx Family GI Disorders: No Hx Family Endocrine Disorder: No Hx Family Neuromuscular Disorders: No Hx Family Neurologic Disorders: No Hx Family HEENT Disorders: No Hx Family Autoimmune Disorders: No Internal Medicine - H&P: Meds Apixaban [Eliquis] 5 mg PO BID 10/02/16 [History] Lisinopril [Zestril] 40 mg PO DAILY 10/02/16 [History] Metoprolol [Lopressor] 25 mg PO BID 10/02/16 [History] Montelukast [Singulair] 10 mg PO HS 10/02/16 [History] Albuterol Sulfate [Albuterol Inhaler] 2 puff IH Q4H PRN 10/27/16 [History] Omeprazole [PriLOSEC] 40 mg PO DAILY 10/27/16 [History] Tramadol HCl [Ultram] 50 mg PO TID PRN 10/27/16 [History] 3 Allergy/AdvReac Type Severity Reaction Status Date / Time No Known Allergies Allergy Verified 05/30/16 01:35 All Systems PM: A 10-system review of systems was performed and is negative for pertinent findings except as documented above in the HPI. Review of systems: REVIEW OF SYSTEMS: CONSTITUTIONAL: see HPI. HEENT: Eyes: No visual loss, blurred vision, double vision or yellow sclerae. Ears, Nose, Throat: No hearing loss, sneezing, congestion, runny nose or sore throat. SKIN: No rash or itching. CARDIOVASCULAR: No chest pain, chest pressure or chest discomfort. No palpitations or edema. RESPIRATORY: Nsee HPI. GASTROINTESTINAL: No anorexia, nausea, vomiting or diarrhea. No abdominal pain or blood. GENITOURINARY: No dysuria, urgency, or frequency. NEUROLOGICAL: No headache, dizziness, syncope, paralysis, ataxia, numbness or tingling in the extremities. No change in bowel or bladder control. MUSCULOSKELETAL: No muscle, back pain, joint pain or stiffness. HEMATOLOGIC: No anemia, bleeding or bruising. LYMPHATICS: No enlarged nodes. No history of splenectomy. PSYCHIATRIC: No history of depression or anxiety. ENDOCRINOLOGIC: No reports of sweating, cold or heat intolerance. No polyuria or polydipsia. - Constitutional Vitals: Temp Pulse Resp BP Pulse Ox 98.3 F 75 14 148/93 100 05/15/17 09:50 05/15/17 12:29 05/15/17 12:29 05/15/17 12:29 05/15/17 12:29 Exam: PHYSICAL EXAMINATION: GENERAL APPEARANCE: The patient is alert, oriented and in no acute distress. HEENT: Head is normocephalic. The sinuses are nontender. Pupils are equal and reactive. The nares are patent. Oropharynx clear without lesions. NECK: Supple without lymphadenopathy. HEART: Regular rate and rhythm. LUNGS: diffuse wheezing bilaterally. ABDOMEN: Soft, nontender, nondistended with good bowel sounds heard. Inguinal area is normal. EXTREMITIES: Without cyanosis, clubbing or edema. NEUROLOGICAL: Gross nonfocal. SKIN: Warm and dry without any rash. Internal Med - H&P Results - Labs CBC & Chem 7: 05/15/17 10:21 05/15/17 10:21 Labs: Short CBC 05/15/17 Range/Units 10:21 WBC 4.1 L (4.3-11.1) K/mcL Hgb 10.1 L (11.5-15.4) g/dL Hct 32.7 L (35.3-44.9) % Plt Count 198 (140-400) K/mcL Neutrophils # 2.5 (1.6-8.9) K/mcL BMP 05/15/17 10:21 Sodium 138 Potassium 3.4 L Chloride 108 H Carbon Dioxide 24 BUN 28 H Creatinine 0.55 L Glucose 85 Calcium 8.0 L Cardiac Enzymes 05/15/17 Range/Units 10:21 Troponin I < 0.03 (< 0.04) ng/mL - Impressions ITS Impressions Chest X-Ray 05/15/17 10:05 IMPRESSION: Left mid lung field airspace opacity, compatible with atelectasis versus early pneumonia in the appropriate clinical setting slightly increased pulmonary lung volumes, which may represent obstructive lung disease. Recommend follow-up short-term chest radiography to confirm resolution of this finding. Mild cardiomegaly, unchanged. D/ / 05/15/2017 10:55:21 Binu Salter MD / uyen Interpreting Provider: Binu Salter MD <Dasha Jasmine - Last Filed: 06/10/17 08:41> Date of Encounter: 06/10/17 Internal Medicine - H&P: HPI History of present illness: Ms. Sexton is a 77 year old female All Systems PM: A 10-system review of systems was performed and is negative for pertinent findings except as documented above in the HPI. - Constitutional Vitals: Temp Pulse Resp BP Pulse Ox 98.1 F 91 15 132/80 95 05/17/17 07:06 05/17/17 07:06 05/17/17 07:06 05/17/17 07:06 05/17/17 07:06 Internal Med - H&P Results - Labs CBC & Chem 7: 05/17/17 05:24 05/17/17 05:24 - Attending Attestation I personally and independently interviewed and examined the patient with TECHNICAL SALES MANAGER, and I reviewed the patient's medical record with her. I am in agreement with the assessment and proposed treatment plan. I discussed my findings and recommendation with the patient and answer all questions. The patient's medical records were edited to accurately reflect this encounter.
[2017-05-15] MEDS: MethylPREDNISolone 40 MG/ML VIAL IVP SCH ×2 (16:43→23:58)
[2017-05-15] MEDS: traMADol 50 MG TABLET PO PRN (18:35)
[2017-05-15] MEDS: Ipratropium/Albuterol Neb 3 ML IH PRN (18:46)
[2017-05-15] MEDS: Apixaban 5 MG TABLET PO SCH (20:10)
[2017-05-15] MEDS: Ondansetron 4 MG/2 ML VIAL IVP PRN (20:23)
[2017-05-15] MEDS: Acetaminophen 325 MG TABLET PO PRN (23:49)
[2017-05-16] MEDS: Ipratropium/Albuterol Neb 3 ML IH PRN ×3 (00:55→20:20)
[2017-05-16] MEDS: traMADol 50 MG TABLET PO PRN ×3 (01:20→17:35)
[2017-05-16 03:50] LABS: Hematocrit 33.2 % (35.3-44.9); Hemoglobin 10.5 g/dL (11.5-15.4); Mean Corpuscular HGB Conc 31.6 g/dL (31.6-35.5); Mean Corpuscular Hemoglobin 25.9 pg (28.0-33.3); Mean Corpuscular Volume 81.8 fL (83.0-100.0); Mean Platelet Volume 10.9 fL (9.4-12.4); Platelet Count 215 K/mcL (140-400); Red Blood Count 4.06 M/mcL (3.82-4.97); Red Cell Distribution Width 18.1 % (11.5-14.5)
[2017-05-16 04:15] LABS: Alanine Aminotransferase 9 Units/L (7-52); Albumin 3.3 g/dL (3.5-5.7); Albumin/Globulin Ratio 1.3 (1.1-2.2); Alkaline Phosphatase 65 Units/L (34-104); Aspartate Amino Transferase 15 Units/L (13-39); BUN/Creatinine Ratio 34 (6-26); Bilirubin,Total 0.5 mg/dL (0.3-1.0); Blood Urea Nitrogen 21 mg/dL (8-23); Calcium 8.8 mg/dL (8.6-10.3); Carbon Dioxide 25 mEq/L (23-29); Chloride 108 mEq/L (98-107); Globulin 2.6 g/dL (2.4-3.5); Glucose 143 mg/dL (70-105); Osmolality,Calculated 293 (280-300); Potassium 5.5 mEq/L (3.5-5.1); Sodium 139 mEq/L (136-145); Total Protein 5.9 g/dL (6.4-8.9); eGFR For African Americans > 60 (> 60); eGFR For Non-African Americans > 60 (> 60)
[2017-05-16] MEDS: Ondansetron 4 MG/2 ML VIAL IVP PRN ×2 (05:05→14:05)
[2017-05-16] MEDS: Acetaminophen 325 MG TABLET PO PRN ×2 (07:27→14:04)
[2017-05-16] MEDS ORDERED: Lisinopril 20 MG TABLET PO SCH (09:00)
[2017-05-16] MEDS ORDERED: Levofloxacin 750 MG/150 ML 750 MG/150 ML BAG IVPB SCH (09:00)
[2017-05-16] MEDS: MethylPREDNISolone 40 MG/ML VIAL IVP SCH ×2 (09:31→17:36)
[2017-05-16] MEDS: Apixaban 5 MG TABLET PO SCH ×2 (09:32→20:58)
--- NOTE | 2017-05-16 22:15 | Internal Med Progress Note ---
Date of Encounter: 05/16/17 Time of Encounter: 15:13 - Assessment and plan (1) COPD exacerbation Current Visit: Yes Status: Acute Assessment and plan: Secondary to pneumonia continue duo nebs solu medrol, levaquin (2) Atrial fibrillation with rapid ventricular response Current Visit: No Status: Chronic Assessment and plan: likely from acute illness, continue current management, on metoprolol (3) Essential hypertension Current Visit: No Status: Chronic (4) HTN (hypertension) Current Visit: No Status: Chronic Qualifiers: Hypertension type: essential hypertension Qualified Code(s): I10 - Essential (primary) hypertension (5) GERD (gastroesophageal reflux disease) Current Visit: No Status: Chronic Qualifiers: Esophagitis presence: esophagitis presence not specified Qualified Code(s) : K21.9 - Gastro-esophageal reflux disease without esophagitis - Subjective Interval history: Patient feels better after steroid therapy - Constitutional Vitals: Temp Pulse Resp BP Pulse Ox 98.7 F 78 18 122/78 97 05/16/17 20:57 05/16/17 20:57 05/16/17 20:57 05/16/17 20:57 05/16/17 20:57 Exam: Gen: NAD CVS: RRR Lungs: CTAB Ext: no edema Internal Medicine: Result - Labs CBC & Chem 7: 05/16/17 03:22 05/16/17 17:27 Labs: Short CBC 05/16/17 Range/Units 03:22 WBC 2.2 L (4.3-11.1) K/mcL Hgb 10.5 L (11.5-15.4) g/dL Hct 33.2 L (35.3-44.9) % Plt Count 215 (140-400) K/mcL BMP 05/16/17 05/16/17 03:22 17:27 Sodium 139 Potassium 5.5 H D 4.0 D Chloride 108 H Carbon Dioxide 25 BUN 21 Creatinine 0.61 Glucose 143 H Calcium 8.8 Liver Function 05/16/17 Range/Units 03:22 Total Bilirubin 0.5 (0.3-1.0) mg/dL AST 15 (13-39) Units/L ALT 9 (7-52) Units/L Alkaline Phosphatase 65 (34-104) Units/L Albumin 3.3 L (3.5-5.7) g/dL - VTE Documentation of Mechanical Device: Intermittent pneumatic compression device Consult Discharge Plan - Plan Referrals: Josep Whiteside DO [Primary Care Provider] -
[2017-05-17] MEDS: MethylPREDNISolone 40 MG/ML VIAL IVP SCH (00:38)
[2017-05-17] MEDS: traMADol 50 MG TABLET PO PRN (01:37)
[2017-05-17] MEDS: Acetaminophen 325 MG TABLET PO PRN (04:31)
[2017-05-17 05:37] LABS: Hematocrit 33.5 % (35.3-44.9); Hemoglobin 10.7 g/dL (11.5-15.4); Immature Granulocytes % 0.5 % (0-4); Lymphocytes # 0.6 K/mcL (0.6-4.6); Lymphocytes % 13.8 %; Mean Corpuscular HGB Conc 31.9 g/dL (31.6-35.5); Mean Corpuscular Volume 81.5 fL (83.0-100.0); Mean Platelet Volume 10.1 fL (9.4-12.4); Monocytes # 0.2 K/mcL (0.0-1.3); Monocytes % 4.3 %; Neutrophils # 3.6 K/mcL (1.6-8.9); Platelet Count 214 K/mcL (140-400); Red Blood Count 4.11 M/mcL (3.82-4.97); Red Cell Distribution Width 18.4 % (11.5-14.5); Segmented Neutrophils % 81.4 %
[2017-05-17 05:50] LABS: BUN/Creatinine Ratio 38 (6-26); Blood Urea Nitrogen 20 mg/dL (8-23); Calcium 8.6 mg/dL (8.6-10.3); Carbon Dioxide 25 mEq/L (23-29); Chloride 105 mEq/L (98-107); Glucose 144 mg/dL (70-105); Osmolality,Calculated 285 (280-300); Potassium 4.2 mEq/L (3.5-5.1); Sodium 135 mEq/L (136-145); eGFR For African Americans > 60 (> 60); eGFR For Non-African Americans > 60 (> 60)
[2017-05-17 07:07] VITALS: BP 132/80
[2017-05-17] MEDS: Ondansetron 4 MG/2 ML VIAL IVP PRN (07:26)
--- NOTE | 2017-05-17 07:33 | Discharge Summary ---
Date of Encounter: 05/17/17 Time of Encounter: 07:31 - Discharge Diagnosis (1) COPD exacerbation Priority: Primary Status: Acute (2) Pneumonia Priority: Secondary Status: Acute Qualifiers: Pneumonia type: due to unspecified organism Laterality: right Lung location: unspecified part of lung Qualified Code(s): J18.9 - Pneumonia, unspecified organism (3) Atrial fibrillation with rapid ventricular response Priority: Secondary Status: Chronic (4) Essential hypertension Priority: Secondary Status: Chronic (5) HTN (hypertension) Priority: Secondary Status: Chronic Qualifiers: Hypertension type: essential hypertension Qualified Code(s): I10 - Essential (primary) hypertension (6) GERD (gastroesophageal reflux disease) Priority: Secondary Status: Chronic Qualifiers: Esophagitis presence: esophagitis presence not specified Qualified Code(s) : K21.9 - Gastro-esophageal reflux disease without esophagitis - Discharge Medications Home Medications: Apixaban [Eliquis] 5 mg PO BID 10/02/16 [History] Lisinopril [Zestril] 40 mg PO DAILY 10/02/16 [History] Metoprolol [Lopressor] 25 mg PO BID 10/02/16 [History] Montelukast [Singulair] 10 mg PO HS 10/02/16 [History] Albuterol Sulfate [Albuterol Inhaler] 2 puff IH Q4H PRN 10/27/16 [History] Omeprazole [PriLOSEC] 40 mg PO DAILY 10/27/16 [History] Tramadol HCl [Ultram] 50 mg PO TID PRN 10/27/16 [History] Albuterol Neb [Proventil Neb] 2.5 mg IH Q4HR PRN 05/15/17 [History] Levofloxacin [Levaquin] 750 mg PO DAILY 7 Days #7 tablet 05/17/17 [Rx] PredniSONE [Deltasone] 40 mg PO DAILY 5 Days #10 tablet 05/17/17 [Rx] PredniSONE [Deltasone] 60 mg PO DAILY #15 tablet 05/17/17 [Rx] Allergies/Adverse Reactions: 3 Allergy/AdvReac Type Severity Reaction Status Date / Time No Known Allergies Allergy Verified 05/30/16 01:35 Date of admission: 05/15/17 12:39 Primary care physician: Josep Whiteside, Consults: 12/31/17 16:58 Consult to Nutrition [CONS] Routine Comment: Previous gastric bypass/no appetite Consulting Provider: NUTRITION Reason for Dietary Consult: MST Score Discharging clinician: Davi Cruz - Patient Status Disposition: Home, Self-Care Condition: Fair Functional capacity at discharge: independent ambulation Overall status at discharge: patient is back to baseline - Discharge Instructions Follow Up With: Josep Whiteside DO [Primary Care Provider] - - Diet and Activity Activity: increase activity as tolerated Diet: advance to your usual diet Hospital course: Ms. Sexton is a 77 year old female's with past medical history of asthma, hypertension, atrial fibrillation who presented to ED with cough and shortness of breath for a week. Symptoms started on Davon madelyn and progressively got worse. She reported cough with occasional greenish mucus colored sputum. She was treated for asthma exacerbation by her PCP with antibiotics and steroids both of which she does not know the type or dose. Patient states that today the chest discomfort is described as tightness in the center chest. Partially relieved with albuterol that she received by squad. Patient describes fatigue and generalized body aches. She works at the [employer] and has been exposed to various illnesses. She reported subjective fever with chills. She denies chest pain, palpitation, edema, or syncope. At the ED, her vital signs were stable. Labs were unremarkable except mild hypokalemia. A chest x-ray revealed pneumonia. She received IV Levaquin and IV steroids with partial relief of symptoms. She will be admitted to the inpatient service for further management. - Time Spent with Patient Total time spent providing and/or coordinating discharge services: - Constitutional Vitals: Temp Pulse Resp BP Pulse Ox 98.1 F 91 15 132/80 95 05/17/17 07:06 05/17/17 07:06 05/17/17 07:06 05/17/17 07:06 05/17/17 07:06 General appearance: Present: A&O X 3, pleasant, no acute distress, answers questions appropriately - Head Head exam: Present: atraumatic, normocephalic - Eye Eye exam: Present: PERRL, conjuntiva pink, sclera anicteric Pupils: Present: PERRL - Neck Neck exam general surgery: Present: supple, trachea midline. Absent: lymphadenopathy - Respiratory Respiratory exam: Present: CTAB. Absent: accessory muscle use, rales, rhonchi, wheezes - Cardiovascular Cardiovascular exam: Present: RRR, +S1, +S2. Absent: diastolic murmur, gallop, rubs, systolic murmur - GI/Abdominal GI/Abdominal exam: Present: normal bowel sounds, soft, no peritoneal signs. Absent: distended, tenderness - Extremities Exam Extremities exam: Present: warm, radial pulses palpable and symmetrical. Absent : calf tenderness, cyanotic, pedal edema - Neurological Exam Neurological exam: Present: CN II-XII intact, oriented X3, no focal deficits. Absent: pronater drift, facial droop, speech deficit - Skin Skin exam: Present: dry, intact - VTE Documentation of Mechanical Device: Intermittent pneumatic compression device
--- NOTE | 2017-05-17 16:13 | Electrocardiograph Report ---
[address] [address] Test Date: 2017-05-15 Pat Name: Maria Esther Sexton Department: 104 Room: [facility] Gender: F End Packer: : [id number] Requested By: Manuel Ham Order Number: [id number] Reading MD: Prosper Araiza Measurements Intervals [place] Rate: 61 P: 72 NE: 149 QRS: 42 QRSD: 103 T: 42 QT: 432 QTc: 436 Interpretive Statements SINUS RHYTHM NONSPECIFIC ST & T-WAVE ABNORMALITY Electronically Signed On 05-17-2017 16:11:29 EST by Prosper Araiza
[2017-05-19 08:04] LABS: Procalcitonin 0.14 ng/mL (<=0.10)
[2017-05-19 08:22] LABS: Mycoplasma pneumoniae IgG 0.06 U/L (<=0.09)
== END 2017-05-17 09:38 | disposition home or self-care (01) | DRG 190 ==
LOC: 3NENU 09:46 → EMEROO 09:46 → 3NENU 13:08
PROVIDERS: ADMIT Internal Medicine Nephrology; ATTEND Student in an Organized Health Care Education/Training Program

== ENCOUNTER 2018-01-23 04:30 | Observation (INO) ==
[2018-01-23] MEDS ORDERED: Aspirin 81 MG TAB.CHEW PO ONE (04:33)
[2018-01-23 05:33] LABS: Basophils % 0.3 %; Eosinophils # 0.2 K/mcL (0.0-0.6); Eosinophils % 2.4 %; Immature Granulocytes % 0.6 % (0-4); Mean Corpuscular HGB Conc 30.3 g/dL (31.6-35.5); Mean Corpuscular Hemoglobin 25.8 pg (28.0-33.3); Mean Corpuscular Volume 85.1 fL (83.0-100.0); Mean Platelet Volume 9.7 fL (9.4-12.4); Monocytes # 0.6 K/mcL (0.0-1.3); Monocytes % 9.9 %; Neutrophils # 4.4 K/mcL (1.6-8.9); Platelet Count 268 K/mcL (140-400); Red Blood Count 3.88 M/mcL (3.82-4.97); Red Cell Distribution Width 18.4 % (11.5-14.5); Segmented Neutrophils % 70.8 %
[2018-01-23 05:40] LABS: INR 1.3
[2018-01-23 05:42] LABS: Activated Partial Thrombo Time 33.3 Seconds (26.0-36.0)
[2018-01-23 05:53] LABS: BUN/Creatinine Ratio 32 (6-26); Blood Urea Nitrogen 20 mg/dL (8-23); Calcium 8.5 mg/dL (8.6-10.3); Carbon Dioxide 28 mEq/L (23-29); Chloride 107 mEq/L (98-107); Glucose 116 mg/dL (70-105); Osmolality,Calculated 296 (280-300); Potassium 3.7 mEq/L (3.5-5.1); Sodium 141 mEq/L (136-145); eGFR For Non-African Americans > 60 (> 60)
[2018-01-23 05:55] LABS: Troponin I < 0.03 ng/mL (< 0.04)
--- NOTE | 2018-01-23 06:04 | Emergency Department Note ---
Disposition Clinical Impression: Chest pain Qualifiers: Chest pain type: unspecified Qualified Code(s): R07.9 - Chest pain, unspecified Disposition: Admitted As Inpatient Referrals: Josep Whiteside DO [Primary Care Provider] - Forms: ED Satisfaction Letter Time of Disposition: 06:47 General Adult HPI - General Chief complaint: ED Chest Pain Stated complaint: chest pain Time Seen by Provider: 01/23/18 04:33 Source: patient Mode of arrival: EMS Limitations: no limitations Nursing Notes Reviewed: Yes Vital Signs Reviewed: Yes - History of Present Illness HPI Narrative: Patient is a 77-year-old female with a past medical history of hypertension presents to the emergency room for evaluation of chest pain. The patient states that her chest pain started approximately midnight last night about 6 hours ago. She states that she was cleaning out her pantry when the pain came on. She describes as a 10 out of 10 pressure-like over her sternum radiating into her left neck and left arm. No diaphoresis or nausea. She states that at approximately 2:10 she took one of her 's nitros which improved her pain for about 30 minutes. However over the next 2 hours she continued to have pain so she called the squad. Squad gave her full dose of aspirin and she states after the aspirin her pain completely resolved and she is currently asymptomatic. She states that she follows along with Dr. Bela szymanski because her has been one episode of atrial fibrillation in the past which resolved on its own. She states she thinks Dr. Bela jones was going to do stress testing during her next appointment in March of this year but has not had any recent cardiac workup. Pain Scale: 3 - Related Data Home Medications Medication Instructions Recorded Confirmed Apixaban [Eliquis] 5 mg PO BID 10/02/16 06/05/17 Lisinopril [Zestril] 40 mg PO DAILY 10/02/16 06/05/17 Metoprolol [Lopressor] 25 mg PO BID 10/02/16 06/05/17 Montelukast [Singulair] 10 mg PO HS 10/02/16 06/05/17 Albuterol Sulfate [Albuterol 2 puff IH Q4H PRN 10/27/16 06/05/17 Inhaler] Omeprazole [PriLOSEC] 40 mg PO DAILY 10/27/16 06/05/17 Tramadol HCl [Ultram] 50 mg PO TID PRN 10/27/16 06/05/17 Allergies Allergy/AdvReac Type Severity Reaction Status Date / Time No Known Allergies Allergy Verified 10/25/17 07:36 All systems ED: reviewed and negative except as stated. Review of Systems: As Per HPI Constitutional: Denies: fever, chills Cardiovascular: Reports: chest pain. Denies: palpitations, dyspnea on exertion Respiratory: Denies: cough, dyspnea Gastrointestinal: Denies: abdominal pain, nausea, vomiting Musculoskeletal: Denies: back pain, neck pain Past Medical History - Past Medical History Attestation: Yes The following information was validated with the patient. Medical history: Reports: arthritis, asthma, atrial fibrillation, cancer, diabetes, GERD, hypertension Surgical history: Reports: appendectomy, breast surgery, cholecystectomy, hysterectomy, orthopedic, other, other, bariatric surgery Psychiatric history: Reports: no psych history SERICULTURE TEACHER history: Reports: no SERICULTURE TEACHER history - Social History Smoking Status: Never smoker Smokeless Tobacco Status: No Alcohol use: Reports: none Drug use: Reports: none Physical Exam CONSTITUTIONAL: Well-appearing; well-nourished; A&O X 3, in no apparent distress HEAD: Normocephalic; atraumatic EYES: PERRL, no scleral icterus NOSE: The nose is normal in appearance without rhinorrhea NECK: No JVD or distended neck veins RESP: Normal chest excursion with respiration; breath sounds clear and equal bilaterally; no wheezes, rhonchi, or rales CARD: Regular rhythm, without murmurs, rub or gallop ABD: Non-distended; non-tender, soft, without rigidity, rebound or guarding,no pulsatile mass CHEST: No pain with palpation SKIN: Normal for age and race; warm and dry without diaphoresis ; no apparent lesions EXTREMITIES: Pulses are 2 plus and equal times 4 extremities, no peripheral edema or calf muscle pain - General Limitations: no limitations General appearance: alert, in no apparent distress Course Vital Signs Temperature 98.5 F 01/23/18 04:35 Pulse Rate 80 01/23/18 04:35 Respiratory Rate 16 01/23/18 04:35 Blood Pressure 119/69 01/23/18 04:35 O2 Sat by Pulse Oximetry 97 01/23/18 04:35 Temperature 98.5 F 01/23/18 04:35 Pulse Rate 80 01/23/18 04:35 Respiratory Rate 16 01/23/18 04:35 Blood Pressure 119/69 01/23/18 04:35 O2 Sat by Pulse Oximetry 97 01/23/18 04:35 Oxygen Delivery Oxygen Delivery Room Air Medical Decision Making - Medical Records Medical records reviewed: Yes I reviewed the patient's medical records. - Lab Data Lab results reviewed: Yes I reviewed the patient's lab results. Result diagrams: 01/23/18 05:18 01/23/18 05:18 Lab Results 01/23/18 01/23/18 01/23/18 Range/Units 05:18 05:18 05:18 WBC 6.2 (4.3-11.1) K/mcL RBC 3.88 (3.82-4.97) M/mcL Hgb 10.0 L (11.5-15.4) g/dL Hct 33.0 L (35.3-44.9) % MCV 85.1 (83.0-100.0) fL MCH 25.8 L (28.0-33.3) pg MCHC 30.3 L (31.6-35.5) g/dL RDW 18.4 H (11.5-14.5) % Plt Count 268 (140-400) K/mcL MPV 9.7 (9.4-12.4) fL Immature Gran % 0.6 (0-4) % Seg Neutrophils % 70.8 % Lymphocytes % 16.0 % Monocytes % 9.9 % Eosinophils % 2.4 % Basophils % 0.3 % Neutrophils # 4.4 (1.6-8.9) K/mcL Lymphocytes # 1.0 (0.6-4.6) K/mcL Monocytes # 0.6 (0.0-1.3) K/mcL Eosinophils # 0.2 (0.0-0.6) K/mcL Basophils # 0.0 (0.0-0.2) K/mcL PT 15.0 H (9.4-12.1) Seconds INR 1.3 APTT 33.3 (26.0-36.0) Seconds D-Dimer 310 (0-500) ng/mLFEU Sodium (136-145) mEq/L Potassium (3.5-5.1) mEq/L Chloride (98-107) mEq/L Carbon Dioxide (23-29) mEq/L BUN (8-23) mg/dL Creatinine (0.60-1.20) mg/dL Est GFR ( Amer) (> 60) Est GFR (Non-Af Amer) (> 60) BUN/Creatinine Ratio (6-26) Glucose (70-105) mg/dL Calculated Osmolality (280-300) Calcium (8.6-10.3) mg/dL Troponin I (< 0.04) ng/mL B-Natriuretic Peptide 200 H (Less than 100) pg/mL 01/23/18 Range/Units 05:18 WBC (4.3-11.1) K/mcL RBC (3.82-4.97) M/mcL Hgb (11.5-15.4) g/dL Hct (35.3-44.9) % MCV (83.0-100.0) fL MCH (28.0-33.3) pg MCHC (31.6-35.5) g/dL RDW (11.5-14.5) % Plt Count (140-400) K/mcL MPV (9.4-12.4) fL Immature Gran % (0-4) % Seg Neutrophils % % Lymphocytes % % Monocytes % % Eosinophils % % Basophils % % Neutrophils # (1.6-8.9) K/mcL Lymphocytes # (0.6-4.6) K/mcL Monocytes # (0.0-1.3) K/mcL Eosinophils # (0.0-0.6) K/mcL Basophils # (0.0-0.2) K/mcL PT (9.4-12.1) Seconds INR APTT (26.0-36.0) Seconds D-Dimer (0-500) ng/mLFEU Sodium 141 (136-145) mEq/L Potassium 3.7 (3.5-5.1) mEq/L Chloride 107 (98-107) mEq/L Carbon Dioxide 28 (23-29) mEq/L BUN 20 (8-23) mg/dL Creatinine 0.62 (0.60-1.20) mg/dL Est GFR ( Amer) > 60 (> 60) Est GFR (Non-Af Amer) > 60 (> 60) BUN/Creatinine Ratio 32 H (6-26) Glucose 116 H (70-105) mg/dL Calculated Osmolality 296 (280-300) Calcium 8.5 L (8.6-10.3) mg/dL Troponin I < 0.03 (< 0.04) ng/mL B-Natriuretic Peptide (Less than 100) pg/mL - Radiology Data Radiology results reviewed: Yes I reviewed the patient's radiology results. Chest X-Ray 01/23/18 04:33 IMPRESSION: Pulmonary parenchymal findings suggesting emphysema with COPD. Stable cardiomegaly. D/ / John Worthington / John Worthington Interpreting Provider: John Worthington - EKG Data EKG #1 EKG attestation: Yes I reviewed and interpreted this EKG. EKG results narrative: EKG done at 4:41 shows sinus arrhythmia at a rate of 86 bpm. Normal axis. No signs of ST elevation, ST depression or Q waves present. No signs of ischemia. Attestation Statement - Attestation Attestation: I examined this patient and my medical decision-making was reviewed with the Resident Physician. I agree with the documented findings, disposition and treatment plan as described except to the extent set forth below. Chest pain, atypical in nature, she does have risk factors, we will admit for ACS rule out.
[2018-01-23] MEDS ORDERED: Naloxone 0.4 MG/ML INJ IVP PRN (07:51)
[2018-01-23 08:13] LABS: Chol/HDL Ratio 2.4 (0-4.9); Cholesterol 141 mg/dL (< 200); HDL Cholesterol 58 mg/dL (40-59); LDL Cholesterol,Calculated 68 mg/dL (0-99); Triglycerides 77 mg/dL (< 150)
[2018-01-23] MEDS ORDERED: Regadenoson 0.4 MG/5 ML SYRINGE IVP ONE (09:12)
--- NOTE | 2018-01-23 09:14 | Internal Med History&Physical ---
Date of Encounter: 01/23/18 Time of Encounter: 09:04 Internal Medicine - H&P: HPI Chief complaint: Chest Pain Admitted From: Home Plans for Post Hospital Care: Home History of present illness: Ms. Sexton is a 77 year old female with Atrial fibrillation , hx of bicuspid AV ,and HTN, Hx of Gastric bypass who was cleaning her pantry and developed chest pain which was substernal and radiated to her neck , said to have been severe, 7 /10 and lasted for several hours, she used one of her 's nitroglycerin with very minimal relief, and presented to the ER. She reports associated nausea at that time, no diaphoresis, she also had some shortness of breath but she has a hx of asthma and is not sure if this shortness of breath was different. She had no nausea and vomiting. She had complete relief when she received ASa in the ER At my time of review, she was ambulating in her room and had no chest pain Initial EKG and trop in the ER were unremarkable She denies dizziness, confusion or any neurologic symptoms She has no GI or urologic symptoms She is full code Past Med Surg Social Fam HX - Past Medical History Medical history: arthritis, asthma, atrial fibrillation, cancer, diabetes, GERD , hypertension Additional medical history: R breast CA 12 years ago Psychiatric history: no psych history - Past Surgical History Surgical History: appendectomy, breast surgery, cholecystectomy, hysterectomy, orthopedic, other, other, bariatric surgery Additional surgical history: kidney stone, stomach sx, bilateral knee replacement, shoulder rotater cuff - Social History Smoking Status: Never smoker Smokeless Tobacco Status: No Alcohol use: none Drug use: none - Family History Brother Family Member Ethnicity: Non- Living Status: Hx Family Cardiac Disorders: Yes Hx Family Respiratory Disorders: No Hx Family Cancer: Yes Hx Family GI Disorders: No Hx Family Endocrine Disorder: No Hx Family Neuromuscular Disorders: No Hx Family Neurologic Disorders: No Hx Family HEENT Disorders: No Hx Family Autoimmune Disorders: No Internal Medicine - H&P: Meds Apixaban [Eliquis] 5 mg PO BID 10/02/16 [History] Lisinopril [Zestril] 40 mg PO DAILY 10/02/16 [History] Metoprolol [Lopressor] 25 mg PO BID 10/02/16 [History] Montelukast [Singulair] 10 mg PO HS 10/02/16 [History] Albuterol Sulfate [Albuterol Inhaler] 2 puff IH Q4H PRN 10/27/16 [History] Omeprazole [PriLOSEC] 40 mg PO DAILY 10/27/16 [History] Tramadol HCl [Ultram] 50 mg PO TID PRN 10/27/16 [History] 3 Allergy/AdvReac Type Severity Reaction Status Date / Time No Known Allergies Allergy Verified 10/25/17 07:36 All Systems PM: A 10-system review of systems was performed and is negative for pertinent findings except as documented above in the HPI. - Constitutional Constitutional: no chills, no fever(s), no night sweats - EENT Eyes: no change in vision, no discharge, no pain, no photophobia Ears: no ear discharge, no ear pain, no tinnitus Nose, mouth and throat: no dysphagia, no nasal discharge, no neck pain, no sore throat - Cardiovascular Cardiovascular ROS IM: as per HPI, chest pain, dyspnea, no diaphoresis, no lightheadedness, no palpitations, no syncope - Respiratory Respiratory: no cough, no dyspnea, no wheezing, no excessive phlegm production - Gastrointestinal Gastrointestinal: no abdominal pain, no diarrhea, no hematemesis, no hematochezia, no melena, no nausea, no vomiting - Genitourinary Genitourinary: no change in urinary stream, no dysuria, no flank pain, no hematuria - Musculoskeletal Musculoskeletal ROS IM: no numbness, no tingling - Integumentary Integumentary IM: no rash, no unusual bruising - Neurological Neurological ROS: no confusion, no convulsions, no focal weakness, no numbness, no tingling, no tremor(s) - Hematologic/Lymphatic Hematologic/Lymphatic: no easy bruising - Constitutional Vitals: Temp Pulse Resp BP Pulse Ox 97.7 F 75 16 144/74 99 01/23/18 08:21 01/23/18 08:21 01/23/18 08:21 01/23/18 08:21 01/23/18 08:21 General appearance: Present: A&O X 3, pleasant, no acute distress Exam: see detailed exam below - Head Head exam: Present: atraumatic, normocephalic - Eye Eye exam: Present: PERRL, conjuntiva pink, sclera anicteric Pupils: Present: PERRL - Neck Neck exam general surgery: Present: supple, trachea midline. Absent: lymphadenopathy - Respiratory Respiratory exam: Present: CTAB. Absent: accessory muscle use, rales, rhonchi, wheezes - Cardiovascular Cardiovascular exam: Present: RRR, +S1, +S2, systolic murmur. Absent: diastolic murmur, gallop, rubs - GI/Abdominal GI/Abdominal exam: Present: normal bowel sounds, soft, no peritoneal signs. Absent: distended, tenderness - Extremities Exam Extremities exam: Present: warm, radial pulses palpable and symmetrical. Absent : calf tenderness, cyanotic, pedal edema - Neurological Exam Neurological exam: Present: CN II-XII intact, oriented X3, no focal deficits. Absent: pronater drift, facial droop, speech deficit - Skin Skin exam: Present: dry, intact Internal Med - H&P Results - Labs CBC & Chem 7: 01/23/18 05:18 01/23/18 05:18 - Assessment and plan (1) Afib Current Visit: Yes Status: Chronic Assessment and plan: HR controlled Continue home meds, continue eliquis Qualifiers: Atrial fibrillation type: chronic Qualified Code(s): I48.2 - Chronic atrial fibrillation (2) Chest pain Current Visit: Yes Status: Acute Assessment and plan: r/o ACS Chest pain was cardiac in description Initial EKG unremarkable Troponin is negative Cycle trop X1 Keep NPO for stress test Continue ASA, check Lipid panel and A1C Qualifiers: Chest pain type: unspecified Qualified Code(s): R07.9 - Chest pain, unspecified (3) GERD (gastroesophageal reflux disease) Current Visit: Yes Status: Chronic Assessment and plan: resume home meds Qualifiers: Esophagitis presence: esophagitis presence not specified Qualified Code(s) : K21.9 - Gastro-esophageal reflux disease without esophagitis (4) HTN (hypertension) Current Visit: Yes Status: Chronic Assessment and plan: resume home meds after verification Qualifiers: Hypertension type: essential hypertension Qualified Code(s): I10 - Essential (primary) hypertension (5) Anemia Current Visit: Yes Status: Chronic Assessment and plan: Hb is at baseline, continue to monitor Qualifiers: Anemia type: unspecified type Qualified Code(s): D64.9 - Anemia, unspecified - Time Spent With Patient Total time spent is greater than 50% in coordination of care (as documented) at patient's floor/unit and/or counseling patient:
[2018-01-23 10:58] LABS: Estimated Average Glucose 134 mg/dl; Hemoglobin A1C 6.3 %
[2018-01-23] MEDS: Apixaban 5 MG TABLET PO SCH ×2 (12:47→20:57)
[2018-01-23] MEDS: Lisinopril 20 MG TABLET PO SCH (12:47)
[2018-01-24] MEDS ORDERED: Regadenoson 0.4 MG/5 ML SYRINGE IVP ONE (05:53)
[2018-01-24] MEDS: Lisinopril 20 MG TABLET PO SCH (10:38)
[2018-01-24] MEDS: Apixaban 5 MG TABLET PO SCH (10:39)
[2018-01-24 15:29] VITALS: BP 105/66
--- NOTE | 2018-01-24 17:05 | Discharge Summary ---
- NOTES TO OUTPATIENT PROVIDER Notes to Outpatient Provider: Cardiac stress test completed which was negative for ischemia or infarct-echo with EF of 60% mild concentric left ventricular hypertrophy indeterminate diastolic function normal right ventricular structure and function severely dilated left atrium severely dilated right atrium-no aortic regurgitation aortic valve leaflet morphology is not optimally visualized appears bicuspid moderate to severe aortic stenosis no mitral stenosis moderate mitral annular calcification-no pulmonary hypertension. Evaluation for possible aortic valve replacement Orders not resulted at time of discharge: Pending orders 01/24/18 07:00 NM renzo perf SPECT multi [NM] Routine Date of Encounter: 01/24/18 Time of Encounter: 17:00 - Discharge Diagnosis (1) HTN (hypertension) Priority: Secondary Status: Chronic Qualifiers: Hypertension type: essential hypertension Qualified Code(s): I10 - Essential (primary) hypertension (2) GERD (gastroesophageal reflux disease) Priority: Secondary Status: Chronic Qualifiers: Esophagitis presence: esophagitis presence not specified Qualified Code(s) : K21.9 - Gastro-esophageal reflux disease without esophagitis (3) Chest pain Priority: Primary Status: Acute Qualifiers: Chest pain type: unspecified Qualified Code(s): R07.9 - Chest pain, unspecified (4) Afib Priority: Secondary Status: Chronic Qualifiers: Atrial fibrillation type: chronic Qualified Code(s): I48.2 - Chronic atrial fibrillation (5) Anemia Priority: Secondary Status: Chronic Qualifiers: Anemia type: unspecified type Qualified Code(s): D64.9 - Anemia, unspecified Hospital course: Ms. Sexton is a 77 year old female past medical history of atrial fibrillation history of bicuspid AV of hypertension and history of bypass patients develop substernal chest pain that radiated to her neck lasting for several hours. She did take a nitroglycerin with minimal relief. Initial EKG unremarkable. Troponins are flat and adynamic. She denies any GI or urological symptoms. She underwent a cardiac stress test which was negative for any ischemia or infarct. She did not have any chest pain during this admission. Echo was completed which did show moderate to severe aortic stenosis. 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 I advised the patient to follow-up with cardiology and continue home medications she verbalized understanding. She is here with a fairly stable at this time with no chest pain and is ready for discharge. Discharge discussed with: patient - Time Spent with Patient Total time spent providing and/or coordinating discharge services: - Discharge Medications Home Medications: Apixaban [Eliquis] 5 mg PO BID 10/02/16 [History] Lisinopril [Zestril] 40 mg PO DAILY 10/02/16 [History] Metoprolol [Lopressor] 25 mg PO BID 10/02/16 [History] Montelukast [Singulair] 10 mg PO HS 10/02/16 [History] Albuterol Sulfate [Albuterol Inhaler] 2 puff IH Q4H PRN 10/27/16 [History] Omeprazole [PriLOSEC] 40 mg PO DAILY 10/27/16 [History] Tramadol HCl [Ultram] 50 mg PO TID PRN 10/27/16 [History] Pramipexole [Mirapex] 0.125 mg PO BID 01/24/18 [History] Allergies/Adverse Reactions: 3 Allergy/AdvReac Type Severity Reaction Status Date / Time No Known Allergies Allergy Verified 10/25/17 07:36 Date of admission: 01/23/18 06:55 Primary care physician: John Whiteside DO Discharging clinician: Daniella Bustillo Anticipated date of discharge: 01/24/18 - Constitutional Vitals: Temp Pulse Resp BP Pulse Ox 98.4 F 73 24 105/66 98 01/24/18 15:27 01/24/18 15:27 01/24/18 15:27 01/24/18 15:27 01/24/18 10:56 General appearance: Present: A&O X 3, pleasant, no acute distress Exam: see above - Head Head exam: Present: atraumatic, normocephalic - Eye Eye exam: Present: PERRL, conjuntiva pink, sclera anicteric Pupils: Present: PERRL - Neck Neck exam general surgery: Present: supple, trachea midline. Absent: lymphadenopathy - Respiratory Respiratory exam: Present: CTAB. Absent: accessory muscle use, rales, rhonchi, wheezes - Cardiovascular Cardiovascular exam: Present: RRR, +S1, +S2. Absent: diastolic murmur, gallop, rubs, systolic murmur - GI/Abdominal GI/Abdominal exam: Present: normal bowel sounds, soft, no peritoneal signs. Absent: distended, tenderness - Extremities Exam Extremities exam: Present: warm, radial pulses palpable and symmetrical. Absent : calf tenderness, cyanotic, pedal edema - Neurological Exam Neurological exam: Present: CN II-XII intact, oriented X3, no focal deficits. Absent: pronater drift, facial droop, speech deficit - Skin Skin exam: Present: dry, intact - Patient Status Disposition: Home, Self-Care Condition: Good Functional capacity at discharge: independent ambulation - Discharge Instructions Instructions: Atrial Fibrillation (DC), Chest Pain (DC), Anemia (GEN) Follow Up With: Josep Whiteside DO [Primary Care Provider] - (Please call and make an appointmet with in 7-10 days from [facility]. ) Estefani Peterson DO [Partnered Physician] - 02/08/18 3:00 pm () Additional Instructions: Follow-up appointments: If there is not an appointment listed below, please call your physician and schedule a follow-up appointment. If you have congestive heart failure and your symptoms return, make an appointment with your physician. Medication List: Carry an up to date list of medications you are taking at all time. We have given you an updated medication list including any new medications that you have been prescribed. Please provide that list to your primary provider Symptoms: If your condition changes or you experience any of the following symptoms, notify your physician immediately: Unusual or worsening pain, fever, persistent nausea and vomiting, bleeding, increase in swelling (especially in your legs), sudden weight gain, extreme dizziness, chest pain, increased drainage or redness from a wound or incision. Go to the emergency department if you experience a problem with breathing. Weights: If you have a history of swelling or shortness of breath, weigh yourself daily and notify your physician if you have a weight gain of two or more pounds in one day or 5 or more pounds in a week. If you experience any of the warning signs for stroke: Sudden numbness or weakness of the face, arm or leg; especially on one side of the body, sudden confusion, trouble speaking or understanding, sudden trouble seeing in one or both eyes, sudden trouble walking, dizziness, loss of balance or coordination, sudden sever headache with no cause; Call 911 or go to the emergency room. Stroke is a medical emergency. Some risk factors for stroke: Age, cigarette smoking, diabetes, excessive alcohol consumption, family history , high blood pressure, overweight, physical inactivity, prior stroke, heart attack, diagnosis of carotid artery stenosis or other artery disease. If you smoke, STOP: Smoking or tobacco use significantly increases your risk of heart and lung disease. Your chance of disease greatly increases if you continue to smoke. For more information, call the [place] tobacco quit line for smoking cessation 5-259- QUIT-NOW ( ) - Diet and Activity Activity: increase activity as tolerated Diet: low fat, low cholesterol
--- NOTE | 2018-01-27 15:26 | Electrocardiograph Report ---
[place] [id number] Test Date: 2018-01-23 Pat Name: Maria Esther Sexton Department: [id number] Room: 3B24 Gender: F [employer]: : 1940 Requested By: Diego Sidhu Order Number: [id number] Reading MD: Jamin Byrd Measurements Intervals [place] Rate: 86 P: 72 OK: 147 QRS: 33 QRSD: 86 T: 23 QT: 377 QTc: 451 Interpretive Statements Sinus rhythm Sinus arrhythmia Borderline T wave abnormalities Electronically Signed On 01-27-2018 15:24:52 EDT by Jamin Byrd
== END 2018-01-24 18:19 | disposition home or self-care (01) ==
LOC: 3BNU 04:30 → EMEROOARM 04:30 → 3BNU 07:33
PROVIDERS: ADMIT Internal Medicine; ATTEND Family Medicine

== ENCOUNTER 2018-10-23 08:19 | Observation (INO) ==
[2018-10-23] MEDS ORDERED: Aspirin 81 MG TAB.CHEW PO ONE (08:26)
--- NOTE | 2018-10-23 08:55 | Emergency Department Note ---
Disposition Clinical Impression: Chest pain, rule out acute myocardial infarction Disposition: Admitted As Inpatient Condition: Good Referrals: NONE,PCP [Primary Care Provider] - Forms: ED Satisfaction Letter Time of Disposition: 09:52 Chest Pain HPI - General Chief Complaint: ED Chest Pain Stated Complaint: chest discomfort Time Seen by Provider: 10/23/18 08:26 Source: patient, EMS Mode of arrival: EMS Limitations: no limitations Vital Signs Reviewed: Yes Nursing Notes Reviewed: Yes - History of Present Illness HPI Narrative: Alert and oriented nontoxic-appearing 78-year-old female with a history of atrial fibrillation, hypertension, and gastroesophageal reflux presents for evaluation of diffuse anterior chest wall pain that radiated to the left shoulder. Symptoms began at 6:30 AM. The patient states that she was getting things organized for a yard sale home when symptoms began. She describes some exertional dyspnea that occurred at the onset of symptoms as well. She describes a sensation of palpitations and states "it felt like I was in A. fib again". She describes the pain as a heaviness in the chest. She was slightly nauseated but denied any diaphoresis or vomiting. She does describe a nonproductive cough that has been present for the past 2 weeks. She does endorse a degree of pleuritic chest pain as well, stating that it is worse with inspiration. She denies any obvious pain or swelling of the lower extremities. She is anticoagulated on Eliquis, and is managed by Dr. Peterson with [facility]. She states that she took 5 baby aspirin with prompt and significant improvement in pain. 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 Denies: vomiting, diaphoresis, syncope, fever, leg swelling Treatments prior to arrival chest pain: aspirin - Related Data Home Medications Medication Instructions Recorded Confirmed Apixaban [Eliquis] 5 mg PO BID 10/02/16 08/18/18 Lisinopril [Zestril] 40 mg PO DAILY 10/02/16 08/18/18 Metoprolol [Lopressor] 25 mg PO BID 10/02/16 08/18/18 Montelukast [Singulair] 10 mg PO HS 10/02/16 08/18/18 Albuterol Sulfate [Albuterol 2 puff IH Q4H PRN 10/27/16 08/18/18 Inhaler] Omeprazole [PriLOSEC] 40 mg PO DAILY 10/27/16 08/18/18 Tramadol HCl [Ultram] 50 mg PO TID PRN 10/27/16 08/18/18 Pramipexole [Mirapex] 0.125 mg PO BID 01/24/18 08/18/18 Allergies Allergy/AdvReac Type Severity Reaction Status Date / Time No Known Allergies Allergy Verified 10/23/18 08:30 All systems ED: reviewed and negative except as stated. Review of Systems: As Per HPI Constitutional: Denies: fever, chills, weakness, weight change Eyes: Denies: eye pain, eye discharge, vision change ENT ED: Denies: ear pain, throat pain, dental pain, hearing loss, epistaxis, congestion, dysphagia Cardiovascular: Reports: as per HPI, chest pain, palpitations. Denies: dyspnea on exertion, edema, syncope Respiratory: Reports: as per HPI, cough, dyspnea. Denies: wheezes, hemoptysis, stridor, sputum production Gastrointestinal: Reports: as per HPI, nausea. Denies: abdominal pain, vomiting, diarrhea, constipation, hematemesis, melena, hematochezia Genitourinary: Denies: dysuria, frequency, hematuria, discharge Musculoskeletal: Denies: back pain, neck pain, arthralgia, myalgia Integumentary: Denies: rash, abrasion, lesions Neurological: Denies: headache, weakness, numbness, paresthesias, confusion, abnormal gait, vertigo Psychiatric: Denies: anxiety, depression, suicidal thoughts, homicidal thoughts, auditory hallucinations, visual hallucinations Endocrine: Denies: fatigue Hematological/Lymphatic: Denies: easy bleeding, easy bruising Allergic/Immunologic: Denies: facial swelling, urticaria Chest Pain PMH - Past Medical History Medical history: Reports: arthritis, asthma, atrial fibrillation, cancer, diabetes, GERD, hypertension Surgical history: Reports: appendectomy, breast surgery, cholecystectomy, hysterectomy, orthopedic, other, other, bariatric surgery Psychiatric history: Reports: no psych history BIKE ASSEMBLER history: Reports: no BIKE 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 Absent: conjunctival injection - ENT ENT exam: mucous membranes moist - Neck Neck exam: Present: normal inspection, full ROM - Chest Chest inspection: Present: normal inspection, symmetric chest wall rise - Respiratory Respiratory exam: Present: normal lung sounds bilaterally. Absent: respiratory distress, wheezes, stridor, accessory muscle use, prolonged expiratory phase - Cardiovascular Cardiovascular exam: Present: regular rate, normal rhythm, systolic murmur. Absent: rubs, gallop, clicks - Abdominal Exam Abdominal exam: Present: soft, Non-Tender, normal bowel sounds - Extremities Exam Extremities exam: Present: normal inspection, full ROM - Neurological Exam Neurological exam: Present: alert, oriented X3 - Psychiatric Psychiatric exam: Present: normal affect, normal mood - Skin Skin exam: Present: warm, dry, intact, normal color. Absent: rash, cyanosis, diaphoresis, erythema, pallor Course Course Narrative: 1000: I spoke with Dr. Jasmine of the Hospital services agreed to accept the patient for chest pain rule out. - Reevaluation(s) Reevaluation #1: The patient denies any chest pain currently but does still complain of a dull ache in the left shoulder. Normal troponin. Chest x-ray shows mild left basilar atelectasis. EKG is unchanged from previous. She has a heart score 5. She will be admitted to the hospital service for chest pain rule out. I discussed this patient's case with Dr. Avilez, ED attending. She has had a [id number] evaluation with patient and agrees with this plan. Time: 09:55 Vital Signs Temperature 98.4 F 10/23/18 08:30 Pulse Rate 89 10/23/18 08:30 Respiratory Rate 18 10/23/18 08:30 Blood Pressure 154/97 10/23/18 08:30 O2 Sat by Pulse Oximetry 100 10/23/18 08:30 Temperature 98.4 F 10/23/18 08:30 Pulse Rate 96 10/23/18 09:22 Respiratory Rate 18 10/23/18 09:22 Blood Pressure 151/94 10/23/18 09:22 O2 Sat by Pulse Oximetry 99 10/23/18 09:22 Oxygen Delivery Oxygen Delivery Room Air Chest Pain - Medical Records Medical records reviewed: Yes I reviewed the patient's medical records. - Lab Data Lab results reviewed: Yes I reviewed the patient's lab results. Lab results narrative: Lab Results 10/23/18 10/23/18 10/23/18 Range/Units 09:00 09:00 09:00 WBC 3.7 L (4.3-11.1) K/mcL RBC 3.81 L (3.82-4.97) M/mcL Hgb 10.0 L (11.5-15.4) g/dL Hct 33.8 L (35.3-44.9) % MCV 88.7 (83.0-100.0) fL MCH 26.2 L (28.0-33.3) pg MCHC 29.6 L (31.6-35.5) g/dL RDW 17.9 H (11.5-14.5) % Plt Count 237 (140-400) K/mcL MPV 9.8 (9.4-12.4) fL Immature Gran % 0.3 (0-4) % Seg Neutrophils % 60.5 % Lymphocytes % 24.4 % Monocytes % 11.3 % Eosinophils % 2.7 % Basophils % 0.8 % Neutrophils # 2.3 (1.6-8.9) K/mcL Lymphocytes # 0.9 (0.6-4.6) K/mcL Monocytes # 0.4 (0.0-1.3) K/mcL Eosinophils # 0.1 (0.0-0.6) K/mcL Basophils # 0.0 (0.0-0.2) K/mcL PT 17.7 H (9.4-12.1) Seconds INR 1.6 APTT 40.4 H (26.0-36.0) Seconds Sodium 141 (136-145) mEq/L Potassium 3.5 (3.5-5.1) mEq/L Chloride 108 H (98-107) mEq/L Carbon Dioxide 28 (23-29) mEq/L BUN 17 (8-23) mg/dL Creatinine 0.56 L (0.60-1.20) mg/dL Est GFR ( Amer) > 60 (> 60) Est GFR (Non-Af Amer) > 60 (> 60) BUN/Creatinine Ratio 30 H (6-26) Glucose 102 (70-105) mg/dL Calculated Osmolality 294 (280-300) Calcium 8.7 (8.6-10.3) mg/dL Troponin I < 0.03 (< 0.04) ng/mL Result diagrams: 10/23/18 09:00 10/23/18 09:00 Lab Results 10/23/18 10/23/18 10/23/18 Range/Units 09:00 09:00 09:00 WBC 3.7 L (4.3-11.1) K/mcL RBC 3.81 L (3.82-4.97) M/mcL Hgb 10.0 L (11.5-15.4) g/dL Hct 33.8 L (35.3-44.9) % MCV 88.7 (83.0-100.0) fL MCH 26.2 L (28.0-33.3) pg MCHC 29.6 L (31.6-35.5) g/dL RDW 17.9 H (11.5-14.5) % Plt Count 237 (140-400) K/mcL MPV 9.8 (9.4-12.4) fL Immature Gran % 0.3 (0-4) % Seg Neutrophils % 60.5 % Lymphocytes % 24.4 % Monocytes % 11.3 % Eosinophils % 2.7 % Basophils % 0.8 % Neutrophils # 2.3 (1.6-8.9) K/mcL Lymphocytes # 0.9 (0.6-4.6) K/mcL Monocytes # 0.4 (0.0-1.3) K/mcL Eosinophils # 0.1 (0.0-0.6) K/mcL Basophils # 0.0 (0.0-0.2) K/mcL PT 17.7 H (9.4-12.1) Seconds INR 1.6 APTT 40.4 H (26.0-36.0) Seconds Sodium 141 (136-145) mEq/L Potassium 3.5 (3.5-5.1) mEq/L Chloride 108 H (98-107) mEq/L Carbon Dioxide 28 (23-29) mEq/L BUN 17 (8-23) mg/dL Creatinine 0.56 L (0.60-1.20) mg/dL Est GFR ( Amer) > 60 (> 60) Est GFR (Non-Af Amer) > 60 (> 60) BUN/Creatinine Ratio 30 H (6-26) Glucose 102 (70-105) mg/dL Calculated Osmolality 294 (280-300) Calcium 8.7 (8.6-10.3) mg/dL Troponin I < 0.03 (< 0.04) ng/mL - Radiology Data Radiology results reviewed: Yes I reviewed the patient's radiology results. Chest X-Ray 10/23/18 08:26 IMPRESSION: Mild left basilar atelectasis. D/ / Annalisa Casanova MD / Annalisa Casanova MD Interpreting Provider: Annalisa Casanova MD - EKG Data EKG attestation: Yes I reviewed and interpreted this EKG. EKG results narrative: EKG shows a sinus rhythm at a rate of 94 bpm. NE interval 161, QRS duration 87, QT/QTc interval 369/462. No ectopy noted. No ST elevation or significant ST depressions. No significant change in morphology when compared to an EKG dated from 09/23/18. Heart Score - Score History: Moderately Suspicious EKG: Normal Age: Greater than 65 Risk Factors: Equal/Greater than 3 risk factor or history of atherosclerotic disease Troponin: Less than normal limit HEART Score Total: 5
[2018-10-23 09:10] LABS: Basophils % 0.8 %; Eosinophils # 0.1 K/mcL (0.0-0.6); Eosinophils % 2.7 %; Hematocrit 33.8 % (35.3-44.9); Immature Granulocytes % 0.3 % (0-4); Lymphocytes # 0.9 K/mcL (0.6-4.6); Lymphocytes % 24.4 %; Mean Corpuscular HGB Conc 29.6 g/dL (31.6-35.5); Mean Corpuscular Hemoglobin 26.2 pg (28.0-33.3); Mean Corpuscular Volume 88.7 fL (83.0-100.0); Mean Platelet Volume 9.8 fL (9.4-12.4); Monocytes # 0.4 K/mcL (0.0-1.3); Monocytes % 11.3 %; Neutrophils # 2.3 K/mcL (1.6-8.9); Platelet Count 237 K/mcL (140-400); Red Blood Count 3.81 M/mcL (3.82-4.97); Red Cell Distribution Width 17.9 % (11.5-14.5); Segmented Neutrophils % 60.5 %; White Blood Count 3.7 K/mcL (4.3-11.1)
[2018-10-23 09:28] LABS: INR 1.6; Prothrombin Time 17.7 Seconds (9.4-12.1)
[2018-10-23 09:30] LABS: Activated Partial Thrombo Time 40.4 Seconds (26.0-36.0)
[2018-10-23 09:33] LABS: BUN/Creatinine Ratio 30 (6-26); Blood Urea Nitrogen 17 mg/dL (8-23); Calcium 8.7 mg/dL (8.6-10.3); Carbon Dioxide 28 mEq/L (23-29); Chloride 108 mEq/L (98-107); Glucose 102 mg/dL (70-105); Osmolality,Calculated 294 (280-300); Potassium 3.5 mEq/L (3.5-5.1); Sodium 141 mEq/L (136-145); eGFR For African Americans > 60 (> 60); eGFR For Non-African Americans > 60 (> 60)
[2018-10-23 09:34] LABS: Troponin I < 0.03 ng/mL (< 0.04)
[2018-10-23] MEDS ORDERED: Naloxone 0.4 MG/ML INJ IVP PRN (10:04)
[2018-10-23] MEDS ORDERED: Ondansetron 4 MG/2 ML VIAL IVP PRN (10:04)
[2018-10-23] MEDS ORDERED: Acetaminophen 325 MG TABLET PO PRN (10:04)
[2018-10-23] MEDS ORDERED: *HR* HYDROcodone/Acet 5/325 mg TABLET PO PRN (10:04)
--- NOTE | 2018-10-23 10:54 | Emergency Department Note ---
Disposition Clinical Impression: Chest pain, rule out acute myocardial infarction Disposition: Admitted As Inpatient Condition: Good Referrals: NONE,PCP [Non-Partnered Physician] - Forms: ED Satisfaction Letter Time of Disposition: 10:54 General Adult HPI - General Chief complaint: ED Chest Pain Stated complaint: chest discomfort Time Seen by Provider: 10/23/18 08:26 Source: patient, EMS Mode of arrival: EMS Limitations: no limitations - History of Present Illness Pain Scale: 10 - Related Data Home Medications Medication Instructions Recorded Confirmed Apixaban [Eliquis] 5 mg PO BID 10/02/16 08/18/18 Lisinopril [Zestril] 40 mg PO DAILY 10/02/16 08/18/18 Metoprolol [Lopressor] 25 mg PO BID 10/02/16 08/18/18 Montelukast [Singulair] 10 mg PO HS 10/02/16 08/18/18 Albuterol Sulfate [Albuterol 2 puff IH Q4H PRN 10/27/16 08/18/18 Inhaler] Omeprazole [PriLOSEC] 40 mg PO DAILY 10/27/16 08/18/18 Tramadol HCl [Ultram] 50 mg PO TID PRN 10/27/16 08/18/18 Pramipexole [Mirapex] 0.125 mg PO BID 01/24/18 08/18/18 Allergies Allergy/AdvReac Type Severity Reaction Status Date / Time No Known Allergies Allergy Verified 10/23/18 08:30 Constitutional: Denies: fever, chills, weakness, weight change Eyes: Denies: eye pain, eye discharge, vision change ENT ED: Denies: ear pain, throat pain, dental pain, hearing loss, epistaxis, congestion, dysphagia Cardiovascular: Reports: as per HPI, chest pain, palpitations. Denies: dyspnea on exertion, edema, syncope Respiratory: Reports: as per HPI, cough, dyspnea. Denies: wheezes, hemoptysis, stridor, sputum production Gastrointestinal: Reports: as per HPI, nausea. Denies: abdominal pain, vomiting, diarrhea, constipation, hematemesis, melena, hematochezia Genitourinary: Denies: dysuria, frequency, hematuria, discharge Musculoskeletal: Denies: back pain, neck pain, arthralgia, myalgia Integumentary: Denies: rash, abrasion, lesions Neurological: Denies: headache, weakness, numbness, paresthesias, confusion, abnormal gait, vertigo Psychiatric: Denies: anxiety, depression, suicidal thoughts, homicidal thoughts, auditory hallucinations, visual hallucinations Endocrine: Denies: fatigue Hematological/Lymphatic: Denies: easy bleeding, easy bruising Allergic/Immunologic: Denies: facial swelling, urticaria Past Medical History - Past Medical History Medical history: Reports: arthritis, asthma, atrial fibrillation, cancer, diabet es, GERD, hypertension Surgical history: Reports: appendectomy, breast surgery, cholecystectomy, hysterectomy, orthopedic, other, other, bariatric surgery Psychiatric history: Reports: no psych history FILM EDITOR 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 - Social History Smoking Status: Never smoker Smokeless Tobacco Status: No Alcohol use: Reports: none Drug use: Reports: none Physical Exam - General Limitations: no limitations General appearance: alert, in no apparent distress Course Vital Signs Temperature 98.4 F 10/23/18 08:30 Pulse Rate 89 10/23/18 08:30 Respiratory Rate 18 10/23/18 08:30 Blood Pressure 154/97 10/23/18 08:30 O2 Sat by Pulse Oximetry 100 10/23/18 08:30 Temperature 98.4 F 10/23/18 08:30 Pulse Rate 96 10/23/18 09:22 Respiratory Rate 18 10/23/18 09:22 Blood Pressure 151/94 10/23/18 09:22 O2 Sat by Pulse Oximetry 99 10/23/18 09:22 Oxygen Delivery Oxygen Delivery Room Air Medical Decision Making - Lab Data Result diagrams: 10/23/18 09:00 10/23/18 09:00 Lab Results 10/23/18 10/23/18 10/23/18 Range/Units 09:00 09:00 09:00 WBC 3.7 L (4.3-11.1) K/mcL RBC 3.81 L (3.82-4.97) M/mcL Hgb 10.0 L (11.5-15.4) g/dL Hct 33.8 L (35.3-44.9) % MCV 88.7 (83.0-100.0) fL MCH 26.2 L (28.0-33.3) pg MCHC 29.6 L (31.6-35.5) g/dL RDW 17.9 H (11.5-14.5) % Plt Count 237 (140-400) K/mcL MPV 9.8 (9.4-12.4) fL Immature Gran % 0.3 (0-4) % Seg Neutrophils % 60.5 % Lymphocytes % 24.4 % Monocytes % 11.3 % Eosinophils % 2.7 % Basophils % 0.8 % Neutrophils # 2.3 (1.6-8.9) K/mcL Lymphocytes # 0.9 (0.6-4.6) K/mcL Monocytes # 0.4 (0.0-1.3) K/mcL Eosinophils # 0.1 (0.0-0.6) K/mcL Basophils # 0.0 (0.0-0.2) K/mcL PT 17.7 H (9.4-12.1) Seconds INR 1.6 APTT 40.4 H (26.0-36.0) Seconds Sodium 141 (136-145) mEq/L Potassium 3.5 (3.5-5.1) mEq/L Chloride 108 H (98-107) mEq/L Carbon Dioxide 28 (23-29) mEq/L BUN 17 (8-23) mg/dL Creatinine 0.56 L (0.60-1.20) mg/dL Est GFR ( Amer) > 60 (> 60) Est GFR (Non-Af Amer) > 60 (> 60) BUN/Creatinine Ratio 30 H (6-26) Glucose 102 (70-105) mg/dL Calculated Osmolality 294 (280-300) Calcium 8.7 (8.6-10.3) mg/dL Troponin I < 0.03 (< 0.04) ng/mL Attestation Statement - Attestation Attestation: I examined this patient and my medical decision-making was reviewed with the Resident Physician. I agree with the documented findings, disposition and treatment plan as described except to the extent set forth below. Patient presents to the ED with a chief complaint of chest pain. Started while she was doing some work on her porch to get ready for the a [employer] sale. Patient has an extensive cardiac history. Her pain is resolved at the time of my evaluation. On exam she is in no distress. She is clear lungs. She does have significant holosystolic murmur. Plan. Patient admits that she has been told she has a valve replacement, but she has not wanted to do this. Patient be admitted here for further cardiac workup and cardial consultation. Chest X-Ray 10/23/18 08:26 IMPRESSION: Mild left basilar atelectasis. D/ / Annalisa Casanova MD / Annalisa Casanova MD Interpreting Provider: Annalisa Casanova MD
--- NOTE | 2018-10-23 15:40 | Internal Med History&Physical ---
Date of Encounter: 10/23/18 Time of Encounter: 14:40 Internal Medicine - H&P: HPI Chief complaint: chest pain Admitted From: Emergency Dept Plans for Post Hospital Care: Home History of present illness: Ms. Sexton is a 78 year old female with known past medical history of [place] a fib, hypertension, hyperlipidemia, diabetes 2 and Moderate to severe pt presented to ER with sudden onset palpitations, chest pressure started this morning. Patient states she felt like she was in a fib again. Patient states that she was getting things organized for a yard sale when symptoms began. She felt chest pressure, non radiating, 5/10 in severity. She denied any syncopal episode. She denied any more CP now. In the ER her EKG showed NSR, with no acute ischemic changes. Her initial troponin came back as negative. Past Med Surg Social Fam HX - Past Medical History Medical history: arthritis, asthma, atrial fibrillation, cancer, diabetes, GERD, hypertension Additional medical history: R breast CA 12 years ago Psychiatric history: no psych history - Past Surgical History Surgical History: appendectomy, breast surgery, cholecystectomy, hysterectomy, orthopedic, other, other, bariatric surgery Additional surgical history: kidney stone, stomach sx, bilateral knee replacement, shoulder rotater cuff - Social History Smoking Status: Never smoker Smokeless Tobacco Status: No Alcohol use: none Drug use: none - Family History Brother History Unknown: Yes Family Member Ethnicity: Non- Living Status: Hx Family Cardiac Disorders: Yes Hx Family Respiratory Disorders: No Hx Family Cancer: Yes Hx Family GI Disorders: No Hx Family Endocrine Disorder: No Hx Family Neuromuscular Disorders: No Hx Family Neurologic Disorders: No Hx Family HEENT Disorders: No Hx Family Autoimmune Disorders: No Internal Medicine - H&P: Meds Apixaban [Eliquis] 5 mg PO BID 10/02/16 [History] Lisinopril [Zestril] 40 mg PO DAILY 10/02/16 [History] Metoprolol [Lopressor] 25 mg PO BID 10/02/16 [History] Montelukast [Singulair] 10 mg PO HS 10/02/16 [History] Albuterol Sulfate [Albuterol Inhaler] 2 puff IH Q4H PRN 10/27/16 [History] Omeprazole [PriLOSEC] 40 mg PO DAILY 10/27/16 [History] Tramadol HCl [Ultram] 50 mg PO TID PRN 10/27/16 [History] Pramipexole [Mirapex] 0.125 mg PO BID 01/24/18 [History] Allergy/AdvReac Type Severity Reaction Status Date / Time No Known Allergies Allergy Verified 10/23/18 08:30 All Systems PM: A 10-system review of systems was performed and is negative for pertinent findings except as documented above in the HPI. Review of systems: All the systems are reviewed everything is benign except the systems and symptoms I mentioned in the history of present illness - Constitutional Vitals: Temp Pulse Resp BP Pulse Ox 98.3 F 76 16 161/72 97 10/23/18 14:55 10/23/18 14:55 10/23/18 14:55 10/23/18 14:55 10/23/18 14:55 General appearance: Present: A&O X 3, no acute distress, answers questions appropriately Exam: a - Head Head exam: Present: atraumatic, normal inspection - Neck Neck exam general surgery: Present: supple - Respiratory Respiratory exam: Present: decreased breath sounds. Absent: rales, respiratory distress, rhonchi, wheezes - Cardiovascular Cardiovascular exam: Present: RRR, +S1, +S2, systolic murmur. Absent: tachycardia - GI/Abdominal GI/Abdominal exam: Present: normal bowel sounds, soft. Absent: distended, rebound, rigid, tenderness - Extremities Exam Extremities exam: Present: normal inspection. Absent: calf tenderness, pedal edema, tenderness - Back Exam Back exam: Absent: CVA tenderness (L), CVA tenderness (R) - Neurological Exam Neurological exam: Present: alert, oriented X3. Absent: facial droop, speech deficit - Psychiatric Psychiatric exam: Present: normal affect, normal mood - Skin Skin exam: Absent: rash Internal Med - H&P Results - Labs CBC & Chem 7: 10/23/18 09:00 10/23/18 09:00 Labs: Short CBC 10/23/18 Range/Units 09:00 WBC 3.7 L (4.3-11.1) K/mcL Hgb 10.0 L (11.5-15.4) g/dL Hct 33.8 L (35.3-44.9) % Plt Count 237 (140-400) K/mcL Neutrophils # 2.3 (1.6-8.9) K/mcL BMP 10/23/18 09:00 Sodium 141 Potassium 3.5 Chloride 108 H Carbon Dioxide 28 BUN 17 Creatinine 0.56 L Glucose 102 Calcium 8.7 Cardiac Enzymes 10/23/18 Range/Units 09:00 Troponin I < 0.03 (< 0.04) ng/mL - Impressions ITS Impressions Chest X-Ray 10/23/18 08:26 IMPRESSION: Mild left basilar atelectasis. D/ / Annalisa Casanova MD / Annalisa Casanova MD Interpreting Provider: Annalisa Casanova MD - Assessment and Plan (1) Chest pain, rule out acute myocardial infarction Current Visit: Yes Status: Acute Assessment and plan: Will admit the pt into Tele for observation Will place pt on personnel monitor check serial troponin so far negative troponin EKG reviewed - NSR, No acute ischemic changes noticed Cont ASA and Nitro PRN for pain Will check FLP in AM She had normal stress test in 01/2018 Consulted cardiology for further eval Will check 2 D Echo (2) Paroxysmal A-fib Current Visit: Yes Status: Acute Assessment and plan: rate controlled with Metoprolol on Eliquis for anti coag (3) Aortic stenosis, moderate Current Visit: Yes Status: Acute Assessment and plan: Reviewed 2D Echo from 01/31 showed moderate to severe repeat 2D Echo now Card consulted (4) Essential hypertension Current Visit: No Status: Chronic Assessment and plan: Resumed all home medications (5) GERD (gastroesophageal reflux disease) Current Visit: No Status: Chronic Assessment and plan: on PPI Qualifiers: Esophagitis presence: esophagitis presence not specified Qualified Code(s): K21.9 - Gastro-esophageal reflux disease without esophagitis - Time Spent With Patient Total time spent is greater than 50% in coordination of care (as documented) at patient's floor/unit and/or counseling patient:
[2018-10-23] MEDS: Apixaban 5 MG TABLET PO SCH (20:36)
[2018-10-23] MEDS ORDERED: Perflutren Lipid Microsphere 1.3 ML in 0.9 % Sodium Chloride 8.7 ML IVP ONE (21:04)
[2018-10-24] MEDS ORDERED: Lisinopril 20 MG TABLET PO SCH (09:00)
--- NOTE | 2018-10-24 09:40 | Cardiology Consult Note ---
<ObduliaJose noyola - Last Filed: 10/24/18 09:38> Date of Encounter: 10/24/18 Time of Encounter: 08:45 Assessment and Plan (1) Chest pain, rule out acute myocardial infarction Current Visit: Yes Status: Acute Per Cardiology: Patient actually denied any chest pain and indicates had episode of "rapid heart rate and fatigue". Troponins negative 3. Negative nuclear stress test January 2018. Echo pending. (2) Aortic stenosis, moderate Current Visit: Yes Status: Acute Per Cardiology: Last echo January 2018 showed EF 60%, moderate to severe aortic stenosis with mean gradient 23 mmHg, SAVANNAH 0.76 m, NSWMA. Again, current echo pending. (3) Paroxysmal A-fib Current Visit: Yes Status: Chronic Per Cardiology: Has past history of one-time occurrence of PAF May 2016 and setting a small bowel obstruction. Telemetry reviewed with average heart rate 71 the past 24 hours, a few brief episodes of tachycardia. On Lopressor 25 mg by mouth twice a day. Current systolic blood pressure in the 150s to 160s. Will titrate BB for now-- may adjust based on echo. Remains on anticoagulation of Eliquis 5mg PO BID. Discussion w patient/family: The assessment and plan as outlined above was discussed with the patient and/or family members who expressed understanding and agreement. All questions were answered. Thank you for involving us in the care of your patient. Please call with any questions. History of Present Illness Consult date: 10/24/18 Consult reason: CP Chief complaint: Fast HR History of present illness: Ms. Sexton is a 78 year old female with a relevant past medical history of PAF in setting of small bowel traction, moderate to severe aortic stenosis, HTN, GERD, history of breast cancer. Cardiology consult for chest pain. Patient seen this morning and denied any concerns of chest pain. She reports yesterday morning for about one hour episode of fast heart rate. She reports some fatigue during this time. Denied any other symptoms. She denied any chest pain, chest pressure, shortness of breath, nausea, vomiting, dizziness, syncope, falls. 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 Reports compliance with medication regimen. Denies any active bleed and blood loss and remains on anticoagulation at home. Prior to this event normal state of health with no concerns. Past Med Surg Social Fam HX - Past Medical History Medical history: arthritis, asthma, atrial fibrillation, cancer, diabetes, GERD, hypertension Additional medical history: R breast CA 12 years ago Psychiatric history: no psych history - Past Surgical History Surgical History: appendectomy, breast surgery, cholecystectomy, hysterectomy, o rthopedic, other, other, bariatric surgery Additional surgical history: kidney stone, stomach sx, bilateral knee replacement, shoulder rotater cuff - Social History Smoking Status: Never smoker Smokeless Tobacco Status: No Alcohol use: none Drug use: none - Family History Brother History Unknown: Yes Family Member Ethnicity: Non- Living Status: Hx Family Cardiac Disorders: Yes Hx Family Respiratory Disorders: No Hx Family Cancer: Yes Hx Family GI Disorders: No Hx Family Endocrine Disorder: No Hx Family Neuromuscular Disorders: No Hx Family Neurologic Disorders: No Hx Family HEENT Disorders: No Hx Family Autoimmune Disorders: No Medications and Allergies Apixaban [Eliquis] 5 mg PO BID 10/02/16 [History] Lisinopril [Zestril] 40 mg PO DAILY 10/02/16 [History] Montelukast [Singulair] 10 mg PO HS 10/02/16 [History] Albuterol Sulfate [Albuterol Inhaler] 2 puff IH Q4H PRN 10/27/16 [History] Omeprazole [PriLOSEC] 40 mg PO DAILY 10/27/16 [History] Tramadol HCl [Ultram] 50 mg PO TID PRN 10/27/16 [History] Pramipexole [Mirapex] 0.125 mg PO BID 01/24/18 [History] Aspirin Enteric Coated [Aspirin EC] 81 mg PO DAILY #30 tablet.dr 10/24/18 [Rx] Metoprolol [Lopressor] 50 mg PO BID #60 tablet 10/24/18 [Rx] Allergy/AdvReac Type Severity Reaction Status Date / Time No Known Allergies Allergy Verified 10/23/18 08:30 All Systems Review: The remainder of the systems were reviewed and are negative - Cardiovascular Cardiovascular: as per HPI, rapid heart rate Physical Examination Vital Signs, Last 4 Hours Temp Pulse Resp BP Pulse Ox 10/24/18 06:58 97.5 F L 64 15 164/81 96 General: Conversant, No Apparent Distress HEENT: Atraumatic, Normocephaly, Mucus Membranes Moist Neck: No JVD, Normal carotid pulses Cardiac: Reg Rate and Rhythm, Normal S1 and S2, Other (Grade II murmur) Lungs: Normal Breath Sounds, No Wheeze, Rales, Rhonchi Neuro: Alert and responsive, No focal deficits noted Abdomen: Soft, Non-Tender Skin: No rashes noted on visualized skin Musculoskeletal: No Chest Wall Tenderness Extremities: No Clubbing, No Cyanosis, No Edema, Normal Pulses Results 10/23/18 09:00 10/23/18 09:00 Lab Results Laboratory Tests 10/23/18 10/23/18 10/23/18 09:00 09:00 09:00 Hgb 10.0 L Hct 33.8 L INR 1.6 Creatinine 0.56 L Est GFR (Non-Af Amer) > 60 Troponin I < 0.03 10/23/18 10/23/18 15:28 22:35 Hgb Hct INR Creatinine Est GFR (Non-Af Amer) Troponin I < 0.03 < 0.03 ITS Impressions Chest X-Ray 10/23/18 08:26 IMPRESSION: Mild left basilar atelectasis. D/ / Annalisa Casanova MD / Annalisa Casanova MD Interpreting Provider: Annalisa Casanova MD Active Medications Acetaminophen (Tylenol) 650 mg PO Q6HR PRN PRN Reason: Mild Pain/Fever Stop: 04/24/19 10:05 Hydrocodone Bitart/Acetaminophen ([place] 5-325 Mg) 1 tab PO Q6HR PRN PRN Reason: Moderate Pain Stop: 04/24/19 10:05 Albuterol Sulfate (Albuterol Inhaler) 2 puff IH Q4H PRN PRN Reason: Shortness Of Breath Stop: 04/24/19 10:07 Apixaban (Eliquis) 5 mg PO BID [facility] Stop: 04/24/19 21:01 Last Admin: 10/23/18 20:36 Dose: 5 mg Documented by: Docusate Sodium (Colace) 100 mg PO BID PRN PRN Reason: Constipation Stop: 04/24/19 21:01 Lisinopril (Zestril) 40 mg PO DAILY [facility] Stop: 04/25/19 09:01 Metoprolol Tartrate (Lopressor) 25 mg PO BID [facility] Stop: 04/24/19 21:01 Last Admin: 10/23/18 20:36 Dose: 25 mg Documented by: Montelukast Sodium (Singulair) 10 mg PO HS [facility] Stop: 04/24/19 21:01 Last Admin: 10/23/18 20:36 Dose: 10 mg Documented by: Naloxone HCl (Narcan) 0.4 mg IVP Q2MPRN PRN PRN Reason: SEE COMMENTS Stop: 04/24/19 10:05 Omeprazole (Prilosec) 40 mg PO DAILY [facility] Stop: 04/25/19 09:01 Ondansetron HCl (Zofran) 4 mg IVP Q8HR PRN PRN Reason: Nausea And Vomiting Stop: 04/24/19 10:05 Pramipexole Dihydrochloride (Mirapex) 0.125 mg PO BID [facility] Stop: 04/24/19 21:01 Last Admin: 10/23/18 20:36 Dose: 0.125 mg Documented by: - Imaging and Cardiology Stress Test: report reviewed Echo: pending, report reviewed - EKG Interpretation EKG results cardiology: personally reviewed, normal ECG, sinus rhythm Consult Discharge Plan - Plan Instructions: Metoprolol (By mouth), Aspirin (By mouth), Atrial Fibrillation (DC), Chest Pain (DC), Aortic Stenosis (DC) Referrals: Josep Whiteside DO [Partnered Physician] - (Spoke with Dr. anderson. They will contact you and let you know when your appointment is. If they do not contact you in a few days, then please call the office to schedule an appointment. ) Prescriptions: Aspirin Enteric Coated [Aspirin EC] 81 mg PO DAILY #30 tablet. Metoprolol [Lopressor] 50 mg PO BID #60 tablet <Linden Rod - Last Filed: 10/24/18 16:42> Date of Encounter: 10/24/18 - Attending Attestation Patient was seen and evaluated independently by me. Findings, assessment and plan were discussed at length with patient, questions answered. Agree with nurse practitioner's/resident's documentation. Addition as follows, 78yoCF ho PAF on eliquis, moderate MG 2017, anemia, HTN. P/w 1 episode of short-lived heart racing w/o dizziness/chest pain/palpitations with more than usual exertional activity. No ho angina/syncope/CHF. ECG non ischemic, trop neg, tele 1 episode of non-sustained PAT. BP elevated, CTA B/L, 3/6 SM max R-2nd ICS w vague radiation to B/L carotids, no LE edema. Hb 10 at baseline, no CORNELIO. A: PAT PAF, in SR, on eliquis Uncontrolled HTN Moderate Chronic mild anemia P: pending TTE increase metoprolol dose to 50 bid BP need better ctr anemia w/u and management by primary team and PCP Linden Rod MD, PhD Assessment and Plan Discussion w patient/family: The assessment and plan as outlined above was discussed with the patient and/or family members who expressed understanding and agreement. All questions were answered. Thank you for involving us in the care of your patient. Please call with any questions. History of Present Illness History of present illness: Ms. Sexton is a 78 year old female All Systems Review: The remainder of the systems were reviewed and are negative Results 10/23/18 09:00 10/23/18 09:00 Lab Results 10/23/18 10/23/18 15:28 22:35 Troponin I < 0.03 < 0.03
[2018-10-24] MEDS: Apixaban 5 MG TABLET PO SCH (10:22)
--- NOTE | 2018-10-24 11:22 | Event Note ---
Date of Encounter: 10/24/18 Time of Encounter: 11:20 - Cardiology Event Note ECHO: Impressions: LVEF 60%. Mild left ventricular diastolic dysfunction. Asymmetric septal hypertrophy without LVOT obstruction. Normal right ventricular structure and function. Severe bi-atrial enlargement. Mild-moderate mitral regurgitation. Aortic valve leaflet morphology not well visualized. Possibly a bicuspid valve. Moderate-severe aortic stenosis. Mild-moderate tricuspid regurgitation. Mild pulmonic regurgitation. Mild pulmonary hypertension. Proximal descending thoracic aorta not well visualized. Left Ventricular Wall Motion: Rest Echo Findings All wall segments showed normal motion. * Moderate-severe aortic stenosis. PV 3.3m/s, MG 27mmHg, DI 0.26, SAVANNAH 0.8cm2 Discussed and reviewed with , aortic stenosis appears stable from previous echo. No further recommendations. Cardiology will sign off, reconsult as needed, follow-up arranged.
[2018-10-24 11:38] VITALS: BP 145/83
--- NOTE | 2018-10-24 14:26 | Discharge Summary ---
- NOTES TO OUTPATIENT PROVIDER Notes to Outpatient Provider: f/u with PCP in one week. f/u with Cardiology in 2-4 weeks. Date of Encounter: 10/24/18 Time of Encounter: 14:24 - Discharge Diagnosis (1) Chest pain, rule out acute myocardial infarction Priority: Primary Status: Acute (2) Paroxysmal A-fib Priority: Secondary Status: Chronic (3) Aortic stenosis, moderate Priority: Secondary Status: Acute (4) Essential hypertension Priority: Secondary Status: Chronic (5) GERD (gastroesophageal reflux disease) Priority: Secondary Status: Chronic Qualifiers: Esophagitis presence: esophagitis presence not specified Qualified Code(s): K21.9 - Gastro-esophageal reflux disease without esophagitis Hospital course: Ms. Sexton is a 78 year old female with known past medical history of [place] a fib, hypertension, hyperlipidemia, diabetes 2 and Moderate to severe pt presented to ER with sudden onset palpitations, chest pressure. Patient stated she felt like she was in a fib again. Patient states that she was getting things organized for a yard sale when symptoms began. She felt chest pressure, non radiating, 5/10 in severity. She denied any syncopal episode. In the ER her EKG showed NSR, with no acute ischemic changes. Her initial troponin came back as negative. She was admitted in the hospital and placed on compliance monitor. Her serial troponin came back as negative. She denied any chest pain whatsoever. Her 2 D Echo showed LVEF 60%, mild LV diastolic dysfunction, stable moderate to severe . Pt was evaluated by cardiology who recommend to titrate her Metoprolol for BP / HR. So inc her Metoprolol to 50mg PO BID. Will d/c her home in stable condition today. - Time Spent with Patient Total time spent providing and/or coordinating discharge services: - Discharge Medications Prescriptions: New Aspirin Enteric Coated [Aspirin EC] 81 mg PO DAILY #30 tablet. Metoprolol [Lopressor] 50 mg PO BID #60 tablet Continued Tramadol HCl [Ultram] 50 mg PO TID PRN PRN Reason: Pain Omeprazole [PriLOSEC] 40 mg PO DAILY Albuterol Sulfate [Albuterol Inhaler] 2 puff IH Q4H PRN PRN Reason: Shortness Of Breath Pramipexole [Mirapex] 0.125 mg PO BID Lisinopril [Zestril] 40 mg PO DAILY Montelukast [Singulair] 10 mg PO HS Apixaban [Eliquis] 5 mg PO BID Discontinued Metoprolol [Lopressor] 25 mg PO BID Home Medications: Apixaban [Eliquis] 5 mg PO BID 10/02/16 [History] Lisinopril [Zestril] 40 mg PO DAILY 10/02/16 [History] Montelukast [Singulair] 10 mg PO HS 10/02/16 [History] Albuterol Sulfate [Albuterol Inhaler] 2 puff IH Q4H PRN 10/27/16 [History] Omeprazole [PriLOSEC] 40 mg PO DAILY 10/27/16 [History] Tramadol HCl [Ultram] 50 mg PO TID PRN 10/27/16 [History] Pramipexole [Mirapex] 0.125 mg PO BID 01/24/18 [History] Aspirin Enteric Coated [Aspirin EC] 81 mg PO DAILY #30 tablet. 10/24/18 [Rx] Metoprolol [Lopressor] 50 mg PO BID #60 tablet 10/24/18 [Rx] Allergies/Adverse Reactions: Allergy/AdvReac Type Severity Reaction Status Date / Time No Known Allergies Allergy Verified 10/23/18 08:30 Date of admission: 10/23/18 13:04 Primary care physician: PCP NONE Consults: 10/23/18 15:39 Consult to Cardiology [CONS] Routine Comment: chest pain Consulting Provider: Cardiology April Reason for Consult: chest pain Time Notified: 15:40 Call Completed: Yes - Constitutional Vitals: Temp Pulse Resp BP Pulse Ox 98.4 F 79 17 145/83 94 10/24/18 11:37 10/24/18 11:37 10/24/18 11:37 10/24/18 11:37 10/24/18 11:37 General appearance: Present: A&O X 3, no acute distress, answers questions appropriately Exam: Gen: Alert, awake, Oriented to time,place and person Chest: Diminished breath sounds B/L, No wheezing, No crackles, No rales Heart: S1S2+ RRR No murmurs Abd: Soft, NT, BS +, No organomegaly Ext: No edema, pulses are palpable, No calf tenderness Neuro : No acute focal neuro deficits noticed Skin: No rash. - Patient Status Disposition: Home, Self-Care Condition: Good Overall status at discharge: patient is back to baseline - Discharge Instructions Follow Up With: NONE,PCP [Primary Care Provider] - - Diet and Activity Activity: increase activity as tolerated Diet: low salt diet
--- NOTE | 2018-10-25 15:12 | Electrocardiograph Report ---
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
--- NOTE | 2018-10-26 12:37 | Electrocardiograph Report ---
[place] [employer] Test Date: 2018-10-23 Pat Name: Maria Esther Sexton Department: EXAM3 Room: 3B44 Gender: F Mail Processing Associate: : 1940 Requested By: Ernesto Butterfield Order Number: [id number] Reading MD: Aguilar Field Measurements Intervals [place] Rate: 97 P: 58 MD: 151 QRS: 4 QRSD: 90 T: QT: 326 QTc: 415 Interpretive Statements Sinus rhythm Probable left atrial enlargement Probable LVH with secondary repol abnrm Electronically Signed On 10-26-2018 12:35:40 EDT by Aguilar Field
== END 2018-10-24 17:41 | disposition home or self-care (01) ==
LOC: 3BNU 08:19 → EMEROOARM 08:19 → SUATTDRO 13:04 → 3BNU 13:28
PROVIDERS: ADMIT Internal Medicine Nephrology; ATTEND Family Medicine

== ENCOUNTER 2019-05-06 07:29 | Inpatient (IN) ==
[2019-05-06] MEDS ORDERED: Acetaminophen 325 MG TABLET PO ONE (07:58)
[2019-05-06] MEDS ORDERED: 0.9 % Sodium Chloride 1,000 ML IVC ONE (07:58)
[2019-05-06 08:15] LABS: Basophils % 0.1 %; Eosinophils % 0.4 %; Hematocrit 28.6 % (35.3-44.9); Hemoglobin 8.7 g/dL (11.5-15.4); Immature Granulocytes % 0.5 % (0-4); Lymphocytes # 0.4 K/mcL (0.6-4.6); Lymphocytes % 3.9 %; Mean Corpuscular HGB Conc 30.4 g/dL (31.6-35.5); Mean Corpuscular Hemoglobin 23.9 pg (28.0-33.3); Mean Corpuscular Volume 78.6 fL (83.0-100.0); Mean Platelet Volume 8.9 fL (9.4-12.4); Monocytes # 0.2 K/mcL (0.0-1.3); Monocytes % 2.4 %; Neutrophils # 9.3 K/mcL (1.6-8.9); Platelet Count 305 K/mcL (140-400); Red Blood Count 3.64 M/mcL (3.82-4.97); Red Cell Distribution Width 18.3 % (11.5-14.5); Segmented Neutrophils % 92.7 %
[2019-05-06 08:20] LABS: INR 1.6; Prothrombin Time 18.4 Seconds (9.4-12.1)
[2019-05-06 08:23] LABS: Activated Partial Thrombo Time 35.2 Seconds (26.0-36.0)
[2019-05-06 08:28] LABS: Bacteria,Urine Many per hpf (None-Few); Hyaline Casts,Urine None Seen per lpf (None-Few); PH,Urine 7.5 pH Units (5.0-8.0); Specific Gravity,Urine 1.016 (1.010-1.025); Squamous Epithelial Cell,Urine Moderate per lpf (None-Few); Urobilinogen,Urine Normal (Normal); WBC,Urine 0-3 per hpf (0-3)
[2019-05-06 08:34] LABS: Clarity,Urine Cloudy (Clear); Glucose,Urine (UA) Normal (Normal)
[2019-05-06 08:35] LABS: Bilirubin,Urine Negative (Negative); Blood,Urine Negative (Negative); Ketones,Urine Negative (Negative); Leukocyte Esterase,Urine Negative (Negative); Nitrite,Urine Negative (Negative); Protein,Urine Negative (Neg-Trace)
[2019-05-06 08:36] LABS: Color,Urine Yellow (Yellow)
[2019-05-06] MEDS ORDERED: cefTRIAXone 1,000 MG in 0.9 % Sodium Chloride Mini Bag 100 ML IVPB ONE (08:36)
[2019-05-06] MEDS ORDERED: Azithromycin 500 MG in 0.9 % Sodium Chloride 250 ML IVPB ONE (08:36)
[2019-05-06 08:39] LABS: BUN/Creatinine Ratio 31 (6-26); Blood Urea Nitrogen 19 mg/dL (8-23); Calcium 8.5 mg/dL (8.6-10.3); Carbon Dioxide 30 mEq/L (23-29); Chloride 99 mEq/L (98-107); Glucose 136 mg/dL (70-105); Osmolality,Calculated 288 (280-300); Potassium 4.1 mEq/L (3.5-5.1); Sodium 137 mEq/L (136-145); Troponin I < 0.03 ng/mL (< 0.04); eGFR For African Americans > 60 (> 60); eGFR For Non-African Americans > 60 (> 60)
[2019-05-06 08:45] LABS: RBC,Urine 0-3 per hpf (0-3)
[2019-05-06 08:46] LABS: Amorphous Sediment,Urine Moderate per hpf (Few)
[2019-05-06] MEDS ORDERED: Water for inj. (sterile) 10 ML ONE (09:03)
[2019-05-06] MEDS ORDERED: Isovue-370 500 ML BOTTLE IVP ONE (09:03)
[2019-05-06] MEDS ORDERED: 0.9 % Sodium Chloride 500 ML IVC ONE (09:04)
[2019-05-06] MEDS ORDERED: *HR* Dextrose 50 % in Water (Syg) 50 ML SYRINGE IVP PRN (09:35)
[2019-05-06] MEDS ORDERED: Dextrose Gel 15 GM/37.5 ML TUBE PO PRN ×2 (09:35)
[2019-05-06] MEDS ORDERED: D5% in Water 1,000 ML IVC PRN (09:35)
[2019-05-06] MEDS ORDERED: Albuterol 2.5 MG/3 ML NEBULIZER IH PRN (09:35)
[2019-05-06] MEDS ORDERED: Aspirin 325 MG TABLET PO ONE (09:35)
[2019-05-06] MEDS ORDERED: Nitroglycerin 0.4 MG TAB.SUBL SL PRN (09:35)
[2019-05-06] MEDS ORDERED: Ondansetron ODT 4 MG TAB.RAPDIS SL PRN (09:35)
[2019-05-06] MEDS ORDERED: Naloxone 0.4 MG/ML INJ IVP PRN (09:35)
[2019-05-06] MEDS ORDERED: Ringers Solution, Lactated 1,000 ML IVC SCH (09:45)
[2019-05-06] MEDS ORDERED: Acetaminophen IV 1,000 MG/100 ML INFUS..BTL IVPB ONE (09:45)
[2019-05-06 10:22] LABS: Immature Reticulocyte % 32.1 % (11.0-38.0); Retculocyte # 0.06 M/mcL (0.05-0.10); Reticulocyte % 1.8 % (1.6-2.8)
[2019-05-06 10:27] LABS: Alanine Aminotransferase 14 Units/L (7-52); Albumin 3.7 g/dL (3.5-5.7); Albumin/Globulin Ratio 1.4 (1.1-2.2); Alkaline Phosphatase 94 Units/L (34-104); Aspartate Amino Transferase 19 Units/L (13-39); Bilirubin,Direct 0.1 mg/dL (0.0-0.2); Bilirubin,Indirect 0.3 mg/dL (0.0-1.0); Bilirubin,Total 0.4 mg/dL (0.3-1.0); Estimated Average Glucose 146 mg/dl; Globulin 2.6 g/dL (2.4-3.5); Magnesium 1.7 mg/dL (1.6-2.6); Phosphorous 2.8 mg/dL (2.7-4.5); Total Protein 6.3 g/dL (6.4-8.9)
[2019-05-06 10:31] LABS: Procalcitonin 0.06 ng/mL (0.00-0.15)
[2019-05-06 10:44] LABS: Ferritin 11 ng/mL (10-120)
[2019-05-06 10:49] LABS: Folate 9.6 ng/mL (3.0-16.0)
[2019-05-06 11:05] LABS: Vitamin B12 > 1500 pg/mL (250-1100)
[2019-05-06] MEDS: Pantoprazole 40 MG VIAL IVP SCH ×2 (12:08→18:38)
[2019-05-06] MEDS: Insulin LISPRO 300 UNITS/3 ML VIAL SQ SCH ×2 (12:19→18:51)
[2019-05-06 13:47] LABS: Adenovirus Not Detected (Not Detect); Bordetella Pertussis Not Detected (Not Detect); Chlamydophila pneumoniae Not Detected (Not Detect); Coronavirus 229E Not Detected (Not Detect); Coronavirus HKU1 Not Detected (Not Detect); Coronavirus NL63 Not Detected (Not Detect); Coronavirus OC43 Not Detected (Not Detect); Human Metapneumovirus Not Detected (Not Detect); Human Rhinovirus/Enterovirus Not Detected (Not Detect); Influenza A Subtype 2009 H1 Not Detected (Not Detect); Influenza A Untypeable Not Detected (Not Detect); Influenza B Not Detected (Not Detect); Mycoplasma pneumoniae Not Detected (Not Detect); Parainfluenza Virus 1 Not Detected (Not Detect); Parainfluenza Virus 2 Not Detected (Not Detect); Parainfluenza Virus 3 Not Detected (Not Detect); Parainfluenza Virus 4 Not Detected (Not Detect); Respiratory Syncytial Virus Not Detected (Not Detect)
[2019-05-06] MEDS ORDERED: *HR* Heparin 5,000 UNIT/ML VIAL IVP PRN ×2 (14:23)
[2019-05-06] MEDS ORDERED: Heparin 25,000 UNIT/250 ML D5W 25,000 UNIT/250 ML IV.SOLN IVC SCH (14:30)
[2019-05-06 15:38] LABS: Hematocrit 26.3 % (35.3-44.9); Mean Corpuscular HGB Conc 30.4 g/dL (31.6-35.5); Mean Corpuscular Hemoglobin 24.2 pg (28.0-33.3); Mean Corpuscular Volume 79.7 fL (83.0-100.0); Mean Platelet Volume 9.4 fL (9.4-12.4); Platelet Count 253 K/mcL (140-400); Red Cell Distribution Width 18.6 % (11.5-14.5)
[2019-05-06 15:41] LABS: White Blood Count 16.4 K/mcL (4.3-11.1)
[2019-05-06 15:44] LABS: INR 1.6
[2019-05-06 15:47] LABS: Activated Partial Thrombo Time 36.4 Seconds (26.0-36.0)
[2019-05-06 15:53] LABS: Heparin anti-factor XA UFH 1.99 IU/mL (0.30-0.70)
[2019-05-06] MEDS ORDERED: 0.9 % Sodium Chloride 1,000 ML IVC SCH (16:00)
[2019-05-06] MEDS ORDERED: Apixaban 5 MG TABLET PO SCH (21:00)
[2019-05-06 21:54] LABS: Amphetamine Screen,Urine Negative ng/mL (Cutoff=1000); Barbiturate Screen,Urine Negative ng/mL (Cutoff=200); Benzodiazepines Screen,Urine Negative ng/mL (Cutoff=200); Cannabinoid Screen,Urine Negative ng/mL (Cutoff = 50); Cocaine Screen,Urine Negative ng/mL (Cutoff= 300); Opiate Screen,Urine Negative ng/mL (Cutoff=300); Phencyclidine Screen,Urine Negative ng/mL (Cutoff=25)
[2019-05-07] MEDS ORDERED: Morphine Sulfate 2 MG/ML SYRINGE IVP ONE (01:44)
[2019-05-07 02:23] LABS: Basophils % 0.1 %; Eosinophils # 0.1 K/mcL (0.0-0.6); Eosinophils % 0.7 %; Hematocrit 25.3 % (35.3-44.9); Hemoglobin 7.4 g/dL (11.5-15.4); Immature Granulocytes % 0.5 % (0-4); Lymphocytes # 0.9 K/mcL (0.6-4.6); Mean Corpuscular HGB Conc 29.2 g/dL (31.6-35.5); Mean Corpuscular Hemoglobin 24.2 pg (28.0-33.3); Mean Corpuscular Volume 82.7 fL (83.0-100.0); Mean Platelet Volume 9.5 fL (9.4-12.4); Monocytes # 1.1 K/mcL (0.0-1.3); Monocytes % 6.3 %; Neutrophils # 15.4 K/mcL (1.6-8.9); Platelet Count 226 K/mcL (140-400); Red Blood Count 3.06 M/mcL (3.82-4.97); Red Cell Distribution Width 18.6 % (11.5-14.5); Segmented Neutrophils % 87.4 %; White Blood Count 17.6 K/mcL (4.3-11.1)
[2019-05-07 02:44] LABS: BUN/Creatinine Ratio 35 (6-26); Blood Urea Nitrogen 18 mg/dL (8-23); Carbon Dioxide 26 mEq/L (23-29); Chloride 105 mEq/L (98-107); Sodium 136 mEq/L (136-145)
[2019-05-07 02:45] LABS: Alanine Aminotransferase 12 Units/L (7-52); Albumin 2.9 g/dL (3.5-5.7); Albumin/Globulin Ratio 1.3 (1.1-2.2); Alkaline Phosphatase 62 Units/L (34-104); Aspartate Amino Transferase 19 Units/L (13-39); Bilirubin,Total 0.4 mg/dL (0.3-1.0); Calcium 7.7 mg/dL (8.6-10.3); Chol/HDL Ratio 1.5 (0-4.9); Cholesterol 82 mg/dL (< 200); Globulin 2.3 g/dL (2.4-3.5); Glucose 83 mg/dL (70-105); HDL Cholesterol 54 mg/dL (40-59); LDL Cholesterol,Calculated 23 mg/dL (0-99); Osmolality,Calculated 283 (280-300); Total Protein 5.2 g/dL (6.4-8.9); Triglycerides 24 mg/dL (< 150); eGFR For African Americans > 60 (> 60); eGFR For Non-African Americans > 60 (> 60)
[2019-05-07] MEDS: Pantoprazole 40 MG VIAL IVP SCH ×2 (05:37→18:00)
[2019-05-07 05:57] LABS: Acinetobacter baumannii by PCR Not Detected (Not Detect); Enterobacter cloacae Cmplx PCR Not Detected (Not Detect); Enterobacteriaceae by PCR Not Detected (Not Detect); Enterococcus by PCR Not Detected (Not Detect); Escherichia coli by PCR Not Detected (Not Detect); Klebsiella oxytoca by PCR Not Detected (Not Detect); Klebsiella pneumoniae by PCR Not Detected (Not Detect); Proteus by PCR Not Detected (Not Detect); Serratia marcescens by PCR Not Detected (Not Detect); Staphylococcus aureus by PCR Not Detected (Not Detect); Staphylococcus by PCR Not Detected (Not Detect); Streptococcus agalactiae(B)PCR Not Detected (Not Detect); Streptococcus by PCR Not Detected (Not Detect); Streptococcus pneumoniae PCR Not Detected (Not Detect); Streptococcus pyogenes (A) PCR Not Detected (Not Detect)
[2019-05-07 05:58] LABS: Candida albicans by PCR Not Detected (Not Detect); Candida glabrata by PCR Not Detected (Not Detect); Candida krusei by PCR Not Detected (Not Detect); Candida parapsilosis by PCR Not Detected (Not Detect); Candida tropicalis by PCR Not Detected (Not Detect); Pseudomonas aeruginosa by PCR Not Detected (Not Detect)
[2019-05-07 06:09] LABS: Hematocrit 26.2 % (35.3-44.9); Hemoglobin 7.9 g/dL (11.5-15.4)
[2019-05-07] MEDS: predniSONE 20 MG TABLET PO SCH (08:24)
[2019-05-07] MEDS: Aspirin Enteric Coated 81 MG Tablet PO SCH (08:25)
[2019-05-07] MEDS: Insulin LISPRO 300 UNITS/3 ML VIAL SQ SCH ×4 (08:25→21:38)
[2019-05-07] MEDS: cefTRIAXone 2,000 MG in Water for inj. (sterile) 20 ML IVP SCH (08:33)
[2019-05-07] MEDS ORDERED: Azithromycin 500 MG in 0.9 % Sodium Chloride 250 ML IVPB SCH (09:00)
[2019-05-07] MEDS ORDERED: *HR* Metoprolol 5 MG/5 ML VIAL IVP ONE (09:06)
[2019-05-07 09:44] LABS: Hematocrit 27.4 % (35.3-44.9); Hemoglobin 8.2 g/dL (11.5-15.4)
[2019-05-07] MEDS: Levalbuterol Neb 0.63 MG/3 ML IH PRN (10:53)
[2019-05-07] MEDS: Ipratropium Neb 0.5 MG NEBULIZER IH SCH ×5 (10:53→23:57)
[2019-05-07] MEDS ORDERED: Heparin 25,000 UNIT/250 ML D5W 25,000 UNIT/250 ML IV.SOLN IVC SCH (11:28)
[2019-05-07] MEDS ORDERED: Ipratropium/Albuterol Neb 3 ML IH SCH (12:00)
[2019-05-07 14:51] LABS: Hematocrit 28.2 % (35.3-44.9); Hemoglobin 8.5 g/dL (11.5-15.4)
[2019-05-07] MEDS ORDERED: 0.9 % Sodium Chloride 1,000 ML IVC SCH ×3 (15:00)
[2019-05-07] MEDS ORDERED: *HR* Warfarin 2.5 MG TABLET PO ONE (18:00)
[2019-05-07] MEDS ORDERED: Warfarin perPT PO PRN (18:00)
[2019-05-07] MEDS: Doxycycline 100 MG in 0.9 % Sodium Chloride Mini Bag 100 ML IVPB SCH (18:23)
[2019-05-07 18:46] LABS: Hematocrit 29.8 % (35.3-44.9); Hemoglobin 8.6 g/dL (11.5-15.4)
[2019-05-07] MEDS ORDERED: Albumin 25% 25gram/100mL 25 GM/100 ML IV.SOLN IVPB ONE (21:01)
[2019-05-08 01:33] LABS: Hematocrit 26.2 % (35.3-44.9); Hemoglobin 7.7 g/dL (11.5-15.4); Mean Corpuscular HGB Conc 29.4 g/dL (31.6-35.5); Mean Corpuscular Hemoglobin 23.9 pg (28.0-33.3); Mean Corpuscular Volume 81.4 fL (83.0-100.0); Mean Platelet Volume 10.1 fL (9.4-12.4); Platelet Count 295 K/mcL (140-400); Red Blood Count 3.22 M/mcL (3.82-4.97); Red Cell Distribution Width 18.9 % (11.5-14.5); White Blood Count 16.1 K/mcL (4.3-11.1)
[2019-05-08 01:40] LABS: INR 1.4; Prothrombin Time 16.3 Seconds (9.4-12.1)
[2019-05-08 01:52] LABS: BUN/Creatinine Ratio 37 (6-26); Blood Urea Nitrogen 26 mg/dL (8-23); Calcium 8.4 mg/dL (8.6-10.3); Carbon Dioxide 26 mEq/L (23-29); Chloride 106 mEq/L (98-107); Glucose 128 mg/dL (70-105); Osmolality,Calculated 290 (280-300); Potassium 4.1 mEq/L (3.5-5.1); Sodium 137 mEq/L (136-145); eGFR For African Americans > 60 (> 60); eGFR For Non-African Americans > 60 (> 60)
[2019-05-08] MEDS ORDERED: 0.9 % Sodium Chloride 500 ML IVC ONE (02:14)
[2019-05-08] MEDS: Ipratropium Neb 0.5 MG NEBULIZER IH SCH ×6 (04:03→23:25)
[2019-05-08] MEDS: Doxycycline 100 MG in 0.9 % Sodium Chloride Mini Bag 100 ML IVPB SCH ×2 (06:07→17:39)
[2019-05-08] MEDS: Pantoprazole 40 MG VIAL IVP SCH ×2 (06:08→17:32)
[2019-05-08] MEDS: predniSONE 20 MG TABLET PO SCH (08:48)
[2019-05-08] MEDS: Benzonatate 100 MG CAPSULE PO PRN (08:50)
[2019-05-08] MEDS: cefTRIAXone 2,000 MG in Water for inj. (sterile) 20 ML IVP SCH (08:50)
[2019-05-08] MEDS: Aspirin Enteric Coated 81 MG Tablet PO SCH (08:50)
[2019-05-08] MEDS: Insulin LISPRO 300 UNITS/3 ML VIAL SQ SCH ×4 (08:51→21:15)
[2019-05-08] MEDS: Levalbuterol Neb 0.63 MG/3 ML IH PRN ×3 (11:01→23:25)
[2019-05-08] MEDS: Apixaban 5 MG TABLET PO SCH ×2 (11:16→21:16)
[2019-05-09] MEDS: Benzonatate 100 MG CAPSULE PO PRN (01:07)
[2019-05-09 01:37] LABS: Hematocrit 27.4 % (35.3-44.9); Hemoglobin 8.3 g/dL (11.5-15.4); Mean Corpuscular HGB Conc 30.3 g/dL (31.6-35.5); Mean Corpuscular Hemoglobin 24.1 pg (28.0-33.3); Mean Corpuscular Volume 79.4 fL (83.0-100.0); Mean Platelet Volume 10.3 fL (9.4-12.4); Platelet Count 342 K/mcL (140-400); Red Blood Count 3.45 M/mcL (3.82-4.97); Red Cell Distribution Width 18.8 % (11.5-14.5); White Blood Count 12.7 K/mcL (4.3-11.1)
[2019-05-09 01:42] LABS: INR 1.5; Prothrombin Time 17.1 Seconds (9.4-12.1)
[2019-05-09 01:54] LABS: BUN/Creatinine Ratio 44 (6-26); Blood Urea Nitrogen 28 mg/dL (8-23); Calcium 8.4 mg/dL (8.6-10.3); Carbon Dioxide 25 mEq/L (23-29); Chloride 107 mEq/L (98-107); Glucose 148 mg/dL (70-105); Osmolality,Calculated 296 (280-300); Potassium 4.1 mEq/L (3.5-5.1); Sodium 139 mEq/L (136-145); eGFR For African Americans > 60 (> 60); eGFR For Non-African Americans > 60 (> 60)
[2019-05-09] MEDS: Levalbuterol Neb 0.63 MG/3 ML IH PRN ×2 (03:56→15:10)
[2019-05-09] MEDS: Ipratropium Neb 0.5 MG NEBULIZER IH SCH ×6 (03:56→23:04)
[2019-05-09] MEDS: Doxycycline 100 MG in 0.9 % Sodium Chloride Mini Bag 100 ML IVPB SCH (05:42)
[2019-05-09] MEDS: Pantoprazole 40 MG VIAL IVP SCH ×2 (05:43→17:02)
[2019-05-09] MEDS ORDERED: *HR* Metoprolol 5 MG/5 ML VIAL IVP ONE ×2 (06:00→06:01)
[2019-05-09] MEDS: Apixaban 5 MG TABLET PO SCH ×2 (07:45→19:49)
[2019-05-09] MEDS: predniSONE 20 MG TABLET PO SCH (07:45)
[2019-05-09] MEDS: Aspirin Enteric Coated 81 MG Tablet PO SCH (07:48)
[2019-05-09] MEDS: cefTRIAXone 2,000 MG in Water for inj. (sterile) 20 ML IVP SCH (07:48)
[2019-05-09] MEDS: Insulin LISPRO 300 UNITS/3 ML VIAL SQ SCH ×4 (07:49→19:54)
[2019-05-09] MEDS ORDERED: *HR* Digoxin 0.5 MG/2 ML AMPUL IVP ONE ×3 (10:22→11:58)
[2019-05-09] MEDS ORDERED: *HR* Metoprolol 5 MG/5 ML VIAL IVP PRN (12:23)
[2019-05-09] MEDS ORDERED: Metoprolol 100 MG TABLET PO SCH (21:00)
[2019-05-10] MEDS: Ipratropium Neb 0.5 MG NEBULIZER IH SCH ×4 (04:08→15:14)
[2019-05-10] MEDS: Pantoprazole 40 MG VIAL IVP SCH ×2 (05:08→16:40)
[2019-05-10 06:09] LABS: Basophils % 0.1 %; Eosinophils % 0.2 %; Hematocrit 26.7 % (35.3-44.9); Hemoglobin 8.2 g/dL (11.5-15.4); Immature Granulocytes % 1.2 % (0-4); Lymphocytes # 1.1 K/mcL (0.6-4.6); Lymphocytes % 11.9 %; Mean Corpuscular HGB Conc 30.7 g/dL (31.6-35.5); Mean Corpuscular Hemoglobin 24.2 pg (28.0-33.3); Mean Corpuscular Volume 78.8 fL (83.0-100.0); Mean Platelet Volume 9.4 fL (9.4-12.4); Monocytes # 0.7 K/mcL (0.0-1.3); Monocytes % 7.8 %; Neutrophils # 7.1 K/mcL (1.6-8.9); Nucleated Red Blood Cells 0.4 /100 WBC (0); Platelet Count 361 K/mcL (140-400); Red Blood Count 3.39 M/mcL (3.82-4.97); Red Cell Distribution Width 19.1 % (11.5-14.5); Segmented Neutrophils % 78.8 %
[2019-05-10 06:14] LABS: INR 1.6; Prothrombin Time 17.9 Seconds (9.4-12.1)
[2019-05-10 06:28] LABS: BUN/Creatinine Ratio 44 (6-26); Blood Urea Nitrogen 24 mg/dL (8-23); Calcium 8.4 mg/dL (8.6-10.3); Carbon Dioxide 28 mEq/L (23-29); Chloride 105 mEq/L (98-107); Glucose 114 mg/dL (70-105); Magnesium 1.8 mg/dL (1.6-2.6); Osmolality,Calculated 299 (280-300); Phosphorous 2.8 mg/dL (2.7-4.5); Potassium 3.7 mEq/L (3.5-5.1); Sodium 142 mEq/L (136-145); eGFR For African Americans > 60 (> 60); eGFR For Non-African Americans > 60 (> 60)
[2019-05-10] MEDS: Insulin LISPRO 300 UNITS/3 ML VIAL SQ SCH ×3 (07:54→16:40)
[2019-05-10] MEDS: Aspirin Enteric Coated 81 MG Tablet PO SCH (08:07)
[2019-05-10] MEDS: Apixaban 5 MG TABLET PO SCH (08:08)
[2019-05-10] MEDS: cefTRIAXone 2,000 MG in Water for inj. (sterile) 20 ML IVP SCH (08:08)
[2019-05-10] MEDS: predniSONE 20 MG TABLET PO SCH (08:08)
[2019-05-10] MEDS ORDERED: *HR* Digoxin 0.125 MG TABLET PO SCH (09:00)
[2019-05-10] MEDS ORDERED: Diltiazem CD (24hr) 120 MG CAPSULE PO SCH (11:07)
[2019-05-10 16:32] VITALS: BP 130/78
== END 2019-05-10 18:39 | disposition short-term general hospital (02) | DRG 871 ==
LOC: EMEROOARM 07:29 → 3ANU 07:29 → SUATTDRO 09:23 → 3ANU 11:57 → SUATTDRO 05-07 14:56 → 2NENU 05-07 16:05
PROVIDERS: ADMIT Internal Medicine; ATTEND Internal Medicine

== ENCOUNTER 2019-05-27 04:04 | Observation (INO) ==
[2019-05-27 05:20] LABS: Bilirubin,Urine Negative (Negative); Blood,Urine Negative (Negative); Clarity,Urine Clear (Clear); Color,Urine Yellow (Yellow); Glucose,Urine (UA) Normal (Normal); Ketones,Urine Negative (Negative); Leukocyte Esterase,Urine Negative (Negative); Nitrite,Urine Negative (Negative); Protein,Urine Negative (Neg-Trace); Specific Gravity,Urine 1.006 (1.010-1.025); Urobilinogen,Urine Normal (Normal)
[2019-05-27 05:32] LABS: Basophils % 0.3 %; Eosinophils # 0.1 K/mcL (0.0-0.6); Eosinophils % 4.2 %; Hematocrit 32.1 % (35.3-44.9); Hemoglobin 9.8 g/dL (11.5-15.4); Immature Granulocytes % 0.6 % (0-4); Lymphocytes # 0.7 K/mcL (0.6-4.6); Lymphocytes % 22.1 %; Mean Corpuscular HGB Conc 30.5 g/dL (31.6-35.5); Mean Corpuscular Hemoglobin 25.7 pg (28.0-33.3); Mean Platelet Volume 9.4 fL (9.4-12.4); Monocytes # 0.4 K/mcL (0.0-1.3); Neutrophils # 1.8 K/mcL (1.6-8.9); Platelet Count 217 K/mcL (140-400); Red Blood Count 3.82 M/mcL (3.82-4.97); Red Cell Distribution Width 24.6 % (11.5-14.5); Segmented Neutrophils % 58.8 %; White Blood Count 3.1 K/mcL (4.3-11.1)
[2019-05-27 05:47] LABS: Anisocytosis 3+ (Not Present); Macrocytosis Present (Not Present); Microcytosis Present (Not Present)
[2019-05-27 05:48] LABS: Platelet Estimate Normal (Normal); Polychromasia 1+ (Not Present)
[2019-05-27 05:56] LABS: BUN/Creatinine Ratio 21 (6-26); Blood Urea Nitrogen 13 mg/dL (8-23); Calcium 8.7 mg/dL (8.6-10.3); Carbon Dioxide 32 mEq/L (23-29); Chloride 102 mEq/L (98-107); Glucose 95 mg/dL (70-105); Osmolality,Calculated 290 (280-300); Potassium 4.3 mEq/L (3.5-5.1); Sodium 140 mEq/L (136-145); Troponin I < 0.03 ng/mL (< 0.04); eGFR For African Americans > 60 (> 60); eGFR For Non-African Americans > 60 (> 60)
[2019-05-27] MEDS ORDERED: Azithromycin desensitization 1 mg/mL IVP ONE (06:05)
[2019-05-27] MEDS ORDERED: cefTAZidime 1,000 MG in 0.9 % Sodium Chloride Mini Bag 100 ML IVP ONE (06:05)
[2019-05-27] MEDS ORDERED: Azithromycin 500 MG in 0.9 % Sodium Chloride 250 ML IVPB ONE (06:10)
[2019-05-27] MEDS ORDERED: Naloxone 0.4 MG/ML INJ IVP PRN (07:32)
[2019-05-27] MEDS ORDERED: Acetaminophen 325 MG TABLET PO PRN (07:32)
[2019-05-27] MEDS: Ipratropium/Albuterol Neb 3 ML IH SCH ×5 (08:17→23:53)
[2019-05-27 08:25] LABS: INR 1.4; Prothrombin Time 15.6 Seconds (9.4-12.1)
[2019-05-27 08:27] LABS: Activated Partial Thrombo Time 36.6 Seconds (26.0-36.0)
[2019-05-27] MEDS ORDERED: Furosemide 40 MG/4 ML VIAL IVP SCH (09:00)
[2019-05-27] MEDS: Cyanocobalamin (B-12) 1,000 MCG TABLET PO SCH ×2 (10:07→20:45)
[2019-05-27] MEDS: Aspirin Enteric Coated 81 MG Tablet PO SCH (10:08)
[2019-05-27] MEDS: *HR* Digoxin 0.125 MG TABLET PO SCH ×2 (10:08→10:20)
[2019-05-27] MEDS: Apixaban 5 MG TABLET PO SCH ×2 (10:08→20:44)
[2019-05-27] MEDS: Diltiazem CD (24hr) 120 MG CAPSULE PO SCH (10:08)
[2019-05-28 01:34] LABS: Basophils % 0.6 %; Eosinophils # 0.1 K/mcL (0.0-0.6); Eosinophils % 3.9 %; Hematocrit 32.4 % (35.3-44.9); Hemoglobin 9.7 g/dL (11.5-15.4); Immature Granulocytes % 0.9 % (0-4); Lymphocytes # 0.9 K/mcL (0.6-4.6); Mean Corpuscular HGB Conc 29.9 g/dL (31.6-35.5); Mean Corpuscular Hemoglobin 25.7 pg (28.0-33.3); Mean Corpuscular Volume 85.9 fL (83.0-100.0); Mean Platelet Volume 9.8 fL (9.4-12.4); Monocytes # 0.5 K/mcL (0.0-1.3); Monocytes % 13.8 %; Neutrophils # 1.8 K/mcL (1.6-8.9); Platelet Count 210 K/mcL (140-400); Red Blood Count 3.77 M/mcL (3.82-4.97); Red Cell Distribution Width 24.8 % (11.5-14.5); Segmented Neutrophils % 54.8 %; White Blood Count 3.3 K/mcL (4.3-11.1)
[2019-05-28 01:39] LABS: BUN/Creatinine Ratio 27 (6-26); Blood Urea Nitrogen 17 mg/dL (8-23); Calcium 8.6 mg/dL (8.6-10.3); Carbon Dioxide 32 mEq/L (23-29); Chloride 98 mEq/L (98-107); Glucose 98 mg/dL (70-105); Osmolality,Calculated 294 (280-300); Sodium 141 mEq/L (136-145); eGFR For African Americans > 60 (> 60); eGFR For Non-African Americans > 60 (> 60)
[2019-05-28 02:24] LABS: Anisocytosis 2+ (Not Present); Microcytosis Present (Not Present); Platelet Estimate Normal (Normal)
[2019-05-28 02:25] LABS: Macrocytosis Present (Not Present)
[2019-05-28 02:26] LABS: Hypochromasia Present (Not Present); Poikilocytosis 1+ (Not Present)
[2019-05-28] MEDS: Ipratropium/Albuterol Neb 3 ML IH SCH ×3 (03:34→11:34)
[2019-05-28 09:33] VITALS: BP 117/59
[2019-05-28] MEDS: *HR* Digoxin 0.125 MG TABLET PO SCH (10:25)
[2019-05-28] MEDS: Apixaban 5 MG TABLET PO SCH (10:25)
[2019-05-28] MEDS: Aspirin Enteric Coated 81 MG Tablet PO SCH (10:26)
[2019-05-28] MEDS: Cyanocobalamin (B-12) 1,000 MCG TABLET PO SCH (10:26)
[2019-05-28] MEDS: Diltiazem CD (24hr) 120 MG CAPSULE PO SCH (10:26)
[2019-05-28] MEDS ORDERED: Furosemide 40 MG TABLET PO SCH (10:48)
== END 2019-05-28 12:45 | disposition home or self-care (01) ==
LOC: EMEROOARM 04:04 → 3BNU 04:04
PROVIDERS: ADMIT Internal Medicine; ATTEND Internal Medicine

== ENCOUNTER 2019-06-24 22:21 | Inpatient (IN) ==
[2019-06-24 22:46] LABS: Basophils % 0.6 %; Eosinophils # 0.2 K/mcL (0.0-0.6); Eosinophils % 4.4 %; Hematocrit 37.2 % (35.3-44.9); Hemoglobin 11.2 g/dL (11.5-15.4); Immature Granulocytes % 0.2 % (0-4); Immature Platelets 1.7 % (1.1-6.1); Lymphocytes # 1.4 K/mcL (0.6-4.6); Lymphocytes % 27.3 %; Mean Corpuscular HGB Conc 30.1 g/dL (31.6-35.5); Mean Corpuscular Hemoglobin 25.8 pg (28.0-33.3); Mean Corpuscular Volume 85.7 fL (83.0-100.0); Monocytes # 0.7 K/mcL (0.0-1.3); Neutrophils # 2.7 K/mcL (1.6-8.9); Platelet Count 217 K/mcL (140-400); Red Blood Count 4.34 M/mcL (3.82-4.97); Red Cell Distribution Width 21.3 % (11.5-14.5); Segmented Neutrophils % 54.5 %
[2019-06-24 22:50] LABS: INR 1.1; Prothrombin Time 12.7 Seconds (9.4-12.1)
[2019-06-24 22:53] LABS: Activated Partial Thrombo Time 36.8 Seconds (26.0-36.0)
[2019-06-24 23:02] LABS: Alanine Aminotransferase 14 Units/L (7-52); Albumin 3.9 g/dL (3.5-5.7); Albumin/Globulin Ratio 1.4 (1.1-2.2); Alkaline Phosphatase 78 Units/L (34-104); Aspartate Amino Transferase 19 Units/L (13-39); BUN/Creatinine Ratio 29 (6-26); Bilirubin,Direct 0.1 mg/dL (0.0-0.2); Bilirubin,Indirect 0.3 mg/dL (0.0-1.0); Bilirubin,Total 0.4 mg/dL (0.3-1.0); Blood Urea Nitrogen 24 mg/dL (8-23); Calcium 9.2 mg/dL (8.6-10.3); Carbon Dioxide 33 mEq/L (23-29); Chloride 99 mEq/L (98-107); Creatine Kinase 41 Units/L (30-223); Globulin 2.8 g/dL (2.4-3.5); Glucose 93 mg/dL (70-105); Lipase 18 Units/L (11-82); Magnesium 2.2 mg/dL (1.6-2.6); Osmolality,Calculated 296 (280-300); Potassium 3.6 mEq/L (3.5-5.1); Sodium 141 mEq/L (136-145); Total Protein 6.7 g/dL (6.4-8.9); eGFR For African Americans > 60 (> 60); eGFR For Non-African Americans > 60 (> 60)
[2019-06-24 23:03] LABS: Troponin I < 0.03 ng/mL (< 0.04)
[2019-06-25 00:38] LABS: Bilirubin,Urine Negative (Negative); Blood,Urine Negative (Negative); Clarity,Urine Clear (Clear); Color,Urine Yellow (Yellow); Glucose,Urine (UA) Normal (Normal); Ketones,Urine Negative (Negative); Leukocyte Esterase,Urine Moderate (Negative); Nitrite,Urine Negative (Negative); Protein,Urine Trace mg/dL (Neg-Trace); Specific Gravity,Urine 1.025 (1.010-1.025); Urobilinogen,Urine Normal (Normal)
[2019-06-25 00:41] LABS: Bacteria,Urine None Seen per hpf (None-Few); Hyaline Casts,Urine None Seen per lpf (None-Few); Squamous Epithelial Cell,Urine Many per lpf (None-Few)
[2019-06-25] MEDS ORDERED: Isovue-370 500 ML BOTTLE IVP ONE (01:05)
[2019-06-25] MEDS ORDERED: Ondansetron 4 MG/2 ML VIAL IVP PRN (02:50)
[2019-06-25] MEDS ORDERED: Acetaminophen 325 MG TABLET PO PRN (02:50)
[2019-06-25] MEDS ORDERED: Naloxone 0.4 MG/ML INJ IVP PRN (02:50)
[2019-06-25 05:04] LABS: Eosinophils # 0.3 K/mcL (0.0-0.6); Eosinophils % 6.5 %; Hematocrit 34.3 % (35.3-44.9); Hemoglobin 10.6 g/dL (11.5-15.4); Immature Granulocytes % 0.3 % (0-4); Lymphocytes # 1.1 K/mcL (0.6-4.6); Lymphocytes % 27.2 %; Mean Corpuscular HGB Conc 30.9 g/dL (31.6-35.5); Mean Corpuscular Hemoglobin 25.4 pg (28.0-33.3); Mean Corpuscular Volume 82.1 fL (83.0-100.0); Mean Platelet Volume 9.5 fL (9.4-12.4); Monocytes # 0.5 K/mcL (0.0-1.3); Monocytes % 13.5 %; Platelet Count 208 K/mcL (140-400); Red Blood Count 4.18 M/mcL (3.82-4.97); Red Cell Distribution Width 21.6 % (11.5-14.5); Segmented Neutrophils % 51.5 %; White Blood Count 3.9 K/mcL (4.3-11.1)
[2019-06-25 05:08] LABS: INR 1.1; Prothrombin Time 12.9 Seconds (9.4-12.1)
[2019-06-25 05:27] LABS: Alanine Aminotransferase 12 Units/L (7-52); Albumin 3.6 g/dL (3.5-5.7); Albumin/Globulin Ratio 1.5 (1.1-2.2); Alkaline Phosphatase 74 Units/L (34-104); Aspartate Amino Transferase 18 Units/L (13-39); BUN/Creatinine Ratio 33 (6-26); Bilirubin,Total 0.4 mg/dL (0.3-1.0); Blood Urea Nitrogen 21 mg/dL (8-23); Calcium 8.8 mg/dL (8.6-10.3); Carbon Dioxide 33 mEq/L (23-29); Chloride 99 mEq/L (98-107); Chol/HDL Ratio 2.2 (0-4.9); Cholesterol 115 mg/dL (< 200); Globulin 2.4 g/dL (2.4-3.5); Glucose 83 mg/dL (70-105); HDL Cholesterol 52 mg/dL (40-59); LDL Cholesterol,Calculated 51 mg/dL (0-99); Magnesium 2.2 mg/dL (1.6-2.6); Osmolality,Calculated 292 (280-300); Potassium 3.5 mEq/L (3.5-5.1); Sodium 140 mEq/L (136-145); Triglycerides 59 mg/dL (< 150); Troponin I < 0.03 ng/mL (< 0.04); eGFR For African Americans > 60 (> 60); eGFR For Non-African Americans > 60 (> 60)
[2019-06-25] MEDS: Aspirin Enteric Coated 81 MG Tablet PO SCH (09:53)
[2019-06-25] MEDS: Cyanocobalamin (B-12) 1,000 MCG TABLET PO SCH (09:53)
[2019-06-25] MEDS: *HR* Digoxin 0.125 MG TABLET PO SCH (09:54)
[2019-06-25 10:46] LABS: Estimated Average Glucose 140 mg/dl
[2019-06-25] MEDS: Insulin LISPRO 300 UNITS/3 ML VIAL SQ SCH ×2 (12:15→16:38)
[2019-06-25] MEDS ORDERED: *HR* Dextrose 50 % in Water (Syg) 50 ML SYRINGE IVP PRN (12:16)
[2019-06-25] MEDS ORDERED: D5% in Water 1,000 ML IVC PRN (12:16)
[2019-06-25] MEDS ORDERED: Dextrose Gel 15 GM/37.5 ML TUBE PO PRN ×2 (12:16)
[2019-06-25] MEDS: Apixaban 5 MG TABLET PO SCH ×2 (16:26→21:43)
[2019-06-25] MEDS ORDERED: Insulin LISPRO 300 UNITS/3 ML VIAL SQ SCH (21:00)
[2019-06-26 04:19] LABS: Basophils % 0.9 %; Eosinophils # 0.3 K/mcL (0.0-0.6); Eosinophils % 5.9 %; Hematocrit 33.9 % (35.3-44.9); Hemoglobin 10.4 g/dL (11.5-15.4); Immature Granulocytes % 0.2 % (0-4); Lymphocytes # 1.2 K/mcL (0.6-4.6); Lymphocytes % 27.4 %; Mean Corpuscular HGB Conc 30.7 g/dL (31.6-35.5); Mean Corpuscular Hemoglobin 26.2 pg (28.0-33.3); Mean Corpuscular Volume 85.4 fL (83.0-100.0); Mean Platelet Volume 9.6 fL (9.4-12.4); Monocytes # 0.6 K/mcL (0.0-1.3); Monocytes % 12.7 %; Neutrophils # 2.3 K/mcL (1.6-8.9); Platelet Count 203 K/mcL (140-400); Red Blood Count 3.97 M/mcL (3.82-4.97); Red Cell Distribution Width 21.7 % (11.5-14.5); Segmented Neutrophils % 52.9 %; White Blood Count 4.4 K/mcL (4.3-11.1)
[2019-06-26 04:40] LABS: BUN/Creatinine Ratio 29 (6-26); Blood Urea Nitrogen 17 mg/dL (8-23); Calcium 8.8 mg/dL (8.6-10.3); Carbon Dioxide 32 mEq/L (23-29); Chloride 101 mEq/L (98-107); Glucose 78 mg/dL (70-105); Osmolality,Calculated 290 (280-300); Phosphorous 3.9 mg/dL (2.7-4.5); Sodium 140 mEq/L (136-145); eGFR For African Americans > 60 (> 60); eGFR For Non-African Americans > 60 (> 60)
[2019-06-26 07:52] VITALS: BP 136/80
[2019-06-26] MEDS: Aspirin Enteric Coated 81 MG Tablet PO SCH (08:40)
[2019-06-26] MEDS: Cyanocobalamin (B-12) 1,000 MCG TABLET PO SCH (08:41)
[2019-06-26] MEDS: *HR* Digoxin 0.125 MG TABLET PO SCH (08:41)
[2019-06-26] MEDS: Apixaban 5 MG TABLET PO SCH (08:42)
[2019-06-26] MEDS: Insulin LISPRO 300 UNITS/3 ML VIAL SQ SCH (08:43)
== END 2019-06-26 10:50 | disposition home or self-care (01) | DRG 65 ==
LOC: 3BNU 22:21 → EMEROOARM 22:21 → 3BNU 06-25 01:45 → SUATTDRO 06-25 02:44
PROVIDERS: ADMIT Pharmacist; ATTEND Internal Medicine

== ENCOUNTER 2020-11-07 09:27 | Inpatient (IN) ==
[2020-11-07 10:34] LABS: Basophils % 0.5 %; Eosinophils # 0.1 K/mcL (0.0-0.6); Eosinophils % 1.2 %; Hematocrit 27.2 % (35.3-44.9); Hemoglobin 8.6 g/dL (11.5-15.4); Immature Granulocytes % 0.3 % (0-4); Lymphocytes # 0.9 K/mcL (0.6-4.6); Lymphocytes % 15.1 %; Mean Corpuscular HGB Conc 31.6 g/dL (31.6-35.5); Mean Corpuscular Hemoglobin 29.3 pg (28.0-33.3); Mean Corpuscular Volume 92.5 fL (83.0-100.0); Mean Platelet Volume 9.8 fL (9.4-12.4); Monocytes # 0.5 K/mcL (0.0-1.3); Monocytes % 8.7 %; Neutrophils # 4.4 K/mcL (1.6-8.9); Platelet Count 174 K/mcL (140-400); Red Blood Count 2.94 M/mcL (3.82-4.97); Red Cell Distribution Width 14.6 % (11.5-14.5); Segmented Neutrophils % 74.2 %
[2020-11-07 10:52] LABS: BUN/Creatinine Ratio 66 (6-26); Blood Urea Nitrogen 46 mg/dL (8-23); Calcium 8.6 mg/dL (8.6-10.3); Carbon Dioxide 33 mEq/L (23-29); Chloride 104 mEq/L (98-107); Glucose 141 mg/dL (70-105); Osmolality,Calculated 304 (280-300); Potassium 4.5 mEq/L (3.5-5.1); Sodium 140 mEq/L (136-145); eGFR For African Americans > 60 (> 60); eGFR For Non-African Americans > 60 (> 60)
[2020-11-07] MEDS ORDERED: Pantoprazole 40 MG VIAL IVP ONE (11:11)
[2020-11-07] MEDS ORDERED: 0.9 % Sodium Chloride 500 ML IVC ONE ×2 (11:19→17:32)
[2020-11-07] MEDS ORDERED: Naloxone 0.4 MG/ML INJ IVP PRN (11:42)
[2020-11-07] MEDS ORDERED: Ondansetron 4 MG/2 ML VIAL IVP PRN (11:42)
[2020-11-07] MEDS ORDERED: Acetaminophen 325 MG TABLET PO PRN (11:42)
[2020-11-07] MEDS ORDERED: *HR* Propofol 200 MG/20 ML VIAL IVP ONE (12:05)
[2020-11-07] MEDS ORDERED: Lidocaine -MPF 2% 5 ML VIAL ONE (12:09)
[2020-11-07] MEDS: Ringers Solution, Lactated 1,000 ML IVC SCH (12:15)
[2020-11-07] MEDS ORDERED: *HR* EPINEPHrine 1 MG/10 ML SYRINGE IVP ONE (12:36)
[2020-11-07] MEDS: Pantoprazole 40 MG in 0.9 % Sodium Chloride Mini Bag 100 ML IVC SCH ×2 (14:40→19:42)
[2020-11-07] MEDS ORDERED: DilTIAZem CD (24hr) 120 MG CAP.ER.24H PO SCH (15:15)
[2020-11-07] MEDS: *HR* Digoxin 0.125 MG TABLET PO SCH (17:09)
[2020-11-07 18:00] LABS: Hematocrit 22.8 % (35.3-44.9)
[2020-11-07] MEDS ORDERED: 0.9 % Sodium Chloride 500 ML ONE (18:53)
[2020-11-07] MEDS ORDERED: 0.9 % Sodium Chloride 250 ML IVC ONE (22:49)
[2020-11-08] MEDS: Pantoprazole 40 MG in 0.9 % Sodium Chloride Mini Bag 100 ML IVC SCH ×5 (00:21→20:32)
[2020-11-08] MEDS ORDERED: 0.9 % Sodium Chloride 500 ML ONE (00:27)
[2020-11-08] MEDS: 0.9 % Sodium Chloride 500 ML IV ONE ×2 (00:42→03:55)
[2020-11-08 01:00] LABS: Hematocrit 23.6 % (35.3-44.9); Hemoglobin 7.4 g/dL (11.5-15.4); Mean Corpuscular HGB Conc 31.4 g/dL (31.6-35.5); Mean Corpuscular Hemoglobin 29.1 pg (28.0-33.3); Mean Corpuscular Volume 92.9 fL (83.0-100.0); Mean Platelet Volume 10.2 fL (9.4-12.4); Platelet Count 118 K/mcL (140-400); Red Blood Count 2.54 M/mcL (3.82-4.97); Red Cell Distribution Width 14.6 % (11.5-14.5); White Blood Count 7.9 K/mcL (4.3-11.1)
[2020-11-08 01:04] LABS: Hematocrit 23.3 % (35.3-44.9); Hemoglobin 7.3 g/dL (11.5-15.4)
[2020-11-08] MEDS ORDERED: 0.9 % Sodium Chloride 500 ML IVC ONE (01:06)
[2020-11-08 01:19] LABS: BUN/Creatinine Ratio 66 (6-26); Blood Urea Nitrogen 35 mg/dL (8-23); Calcium 7.5 mg/dL (8.6-10.3); Carbon Dioxide 27 mEq/L (23-29); Chloride 109 mEq/L (98-107); Glucose 99 mg/dL (70-105); Magnesium 1.9 mg/dL (1.6-2.6); Osmolality,Calculated 304 (280-300); Phosphorous 3.4 mg/dL (2.7-4.5); Potassium 4.1 mEq/L (3.5-5.1); Sodium 143 mEq/L (136-145); eGFR For African Americans > 60 (> 60); eGFR For Non-African Americans > 60 (> 60)
[2020-11-08 05:09] LABS: Basophils % 0.4 %; Eosinophils # 0.1 K/mcL (0.0-0.6); Eosinophils % 0.8 %; Hematocrit 23.3 % (35.3-44.9); Hemoglobin 7.2 g/dL (11.5-15.4); Immature Granulocytes % 0.4 % (0-4); Lymphocytes # 0.8 K/mcL (0.6-4.6); Lymphocytes % 10.4 %; Mean Corpuscular HGB Conc 30.9 g/dL (31.6-35.5); Mean Platelet Volume 10.1 fL (9.4-12.4); Monocytes # 0.7 K/mcL (0.0-1.3); Monocytes % 8.3 %; Neutrophils # 6.2 K/mcL (1.6-8.9); Platelet Count 109 K/mcL (140-400); Red Blood Count 2.48 M/mcL (3.82-4.97); Red Cell Distribution Width 14.9 % (11.5-14.5); Segmented Neutrophils % 79.7 %; White Blood Count 7.8 K/mcL (4.3-11.1)
[2020-11-08] MEDS ORDERED: Ringers Solution, Lactated 500 ML IVC ONE (08:30)
[2020-11-08] MEDS: Aspirin Enteric Coated 81 MG Tablet PO SCH (08:47)
[2020-11-08] MEDS: *HR* Digoxin 0.125 MG TABLET PO SCH (08:47)
[2020-11-08] MEDS: Ringers Solution, Lactated 1,000 ML IVC SCH (08:49)
[2020-11-08] MEDS ORDERED: 0.9 % Sodium Chloride 250 ML ONE (09:26)
[2020-11-08] MEDS: Melatonin 3 MG TABLET PO PRN (20:34)
[2020-11-09] MEDS: Pantoprazole 40 MG in 0.9 % Sodium Chloride Mini Bag 100 ML IVC SCH ×4 (01:47→18:26)
[2020-11-09] MEDS: Ringers Solution, Lactated 1,000 ML IVC SCH (01:48)
[2020-11-09 04:36] LABS: Red Cell Distribution Width 15.1 % (11.5-14.5)
[2020-11-09 04:38] LABS: Hematocrit 25.9 % (35.3-44.9); Hemoglobin 8.1 g/dL (11.5-15.4); Immature Platelets 3.3 % (1.1-6.1); Mean Corpuscular HGB Conc 31.3 g/dL (31.6-35.5); Mean Corpuscular Hemoglobin 29.3 pg (28.0-33.3); Mean Corpuscular Volume 93.8 fL (83.0-100.0); Mean Platelet Volume 10.3 fL (9.4-12.4); Red Blood Count 2.76 M/mcL (3.82-4.97); White Blood Count 5.2 K/mcL (4.3-11.1)
[2020-11-09 04:52] LABS: BUN/Creatinine Ratio 42 (6-26); Blood Urea Nitrogen 19 mg/dL (8-23); Calcium 7.8 mg/dL (8.6-10.3); Carbon Dioxide 26 mEq/L (23-29); Chloride 108 mEq/L (98-107); Glucose 79 mg/dL (70-105); Osmolality,Calculated 293 (280-300); Potassium 3.9 mEq/L (3.5-5.1); Sodium 141 mEq/L (136-145); eGFR For African Americans > 60 (> 60); eGFR For Non-African Americans > 60 (> 60)
[2020-11-09] MEDS: *HR* Digoxin 0.125 MG TABLET PO SCH (08:39)
[2020-11-09] MEDS: Aspirin Enteric Coated 81 MG Tablet PO SCH (08:39)
[2020-11-09] MEDS: Melatonin 3 MG TABLET PO PRN (21:10)
[2020-11-10] MEDS: Pantoprazole 40 MG in 0.9 % Sodium Chloride Mini Bag 100 ML IVC SCH ×5 (00:48→19:38)
[2020-11-10] MEDS ORDERED: *HR* Metoprolol 5 MG/5 ML VIAL IVP ONE ×4 (01:03→05:36)
[2020-11-10] MEDS ORDERED: 0.9 % Sodium Chloride 500 ML IVC ONE (05:35)
[2020-11-10 06:12] LABS: Hematocrit 29.4 % (35.3-44.9); Hemoglobin 9.2 g/dL (11.5-15.4)
[2020-11-10] MEDS: *HR* Digoxin 0.125 MG TABLET PO SCH (08:22)
[2020-11-10] MEDS: Aspirin Enteric Coated 81 MG Tablet PO SCH (08:22)
[2020-11-11] MEDS: Pantoprazole 40 MG in 0.9 % Sodium Chloride Mini Bag 100 ML IVC SCH ×3 (01:08→06:29)
[2020-11-11 05:29] LABS: Hematocrit 29.6 % (35.3-44.9); Hemoglobin 9.2 g/dL (11.5-15.4); Mean Corpuscular HGB Conc 31.1 g/dL (31.6-35.5); Mean Corpuscular Volume 93.4 fL (83.0-100.0); Mean Platelet Volume 9.8 fL (9.4-12.4); Platelet Count 152 K/mcL (140-400); Red Blood Count 3.17 M/mcL (3.82-4.97); Red Cell Distribution Width 14.9 % (11.5-14.5); White Blood Count 4.8 K/mcL (4.3-11.1)
[2020-11-11 05:48] LABS: BUN/Creatinine Ratio 33 (6-26); Blood Urea Nitrogen 15 mg/dL (8-23); Carbon Dioxide 27 mEq/L (23-29); Chloride 107 mEq/L (98-107); Glucose 104 mg/dL (70-105); Osmolality,Calculated 299 (280-300); Potassium 3.6 mEq/L (3.5-5.1); Sodium 144 mEq/L (136-145); eGFR For African Americans > 60 (> 60); eGFR For Non-African Americans > 60 (> 60)
[2020-11-11 07:30] VITALS: BP 114/60
[2020-11-11] MEDS: Aspirin Enteric Coated 81 MG Tablet PO SCH (08:50)
[2020-11-11] MEDS: *HR* Digoxin 0.125 MG TABLET PO SCH (08:50)
== END 2020-11-11 10:21 | disposition home or self-care (01) | DRG 378 ==
LOC: EMEROOARM 09:27 → 3ANU 09:27 → SUATTDRO 11:41 → 3ANU 11:49
PROVIDERS: ADMIT Internal Medicine; ATTEND Internal Medicine

== ENCOUNTER 2021-02-24 06:48 | Inpatient (IN) ==
[2021-02-24] MEDS ORDERED: Heparin 1,000 UNITS/500 mL 1,500 ML ONE (09:09)
[2021-02-24] MEDS ORDERED: Protamine Sulfate 50 MG/5 ML VIAL IVP ONE (09:09)
[2021-02-24] MEDS ORDERED: 0.9 % Sodium Chloride 1,000 ML ONE ×2 (09:09→11:21)
[2021-02-24] MEDS ORDERED: *HR* Heparin 10,000 UNIT/10 ML VIAL ONE (09:09)
[2021-02-24] MEDS ORDERED: ISOVUE-370 200 ML INFUS..BTL ONE (09:10)
[2021-02-24] MEDS ORDERED: Heparin 1,000 UNITS/500 mL 500 ML ONE ×2 (09:12→11:34)
[2021-02-24] MEDS ORDERED: *HR* Metoprolol 5 MG/5 ML VIAL IVP PRN (09:16)
[2021-02-24] MEDS ORDERED: Ondansetron 4 MG/2 ML VIAL IVP PRN (09:16)
[2021-02-24] MEDS ORDERED: Albuterol 2.5 MG/3 ML NEBULIZER IH PRN (09:16)
[2021-02-24] MEDS ORDERED: *HR* FentaNYL (PF) 100 MCG/2 ML VIAL IVP PRN (09:16)
[2021-02-24] MEDS ORDERED: *HR* OxyCODONE Immed Rel 5 MG TABLET PO PRN (09:16)
[2021-02-24] MEDS ORDERED: Perflutren Lipid Microsphere 1.3 ML in 0.9 % Sodium Chloride 8.7 ML IVP PRN (12:47)
[2021-02-24] MEDS ORDERED: Ondansetron ODT 4 MG TAB.RAPDIS SL PRN (12:49)
[2021-02-24] MEDS ORDERED: NON-FORMULARY MEDICATION 1 EACH EACH (Ibandronate Sodium [Boniva] 150 MG Tablet) PO SCH (13:00)
[2021-02-24 15:19] LABS: Eosinophils % 0.9 %; Hematocrit 36.6 % (35.3-44.9); Hemoglobin 11.2 g/dL (11.5-15.4); Immature Granulocytes % 0.5 % (0-4); Lymphocytes % 8.3 %; Mean Corpuscular HGB Conc 30.6 g/dL (31.6-35.5); Mean Corpuscular Hemoglobin 28.7 pg (28.0-33.3); Mean Corpuscular Volume 93.8 fL (83.0-100.0); Mean Platelet Volume 9.9 fL (9.4-12.4); Platelet Count 170 K/mcL (140-400); Red Cell Distribution Width 16.6 % (11.5-14.5); Segmented Neutrophils % 83.8 %; White Blood Count 5.5 K/mcL (4.3-11.1)
[2021-02-24 15:20] LABS: Basophils % 0.5 %; Eosinophils # 0.1 K/mcL (0.0-0.6); Lymphocytes # 0.5 K/mcL (0.6-4.6); Monocytes # 0.3 K/mcL (0.0-1.3); Neutrophils # 4.6 K/mcL (1.6-8.9)
[2021-02-24] MEDS: Apixaban 5 MG TABLET PO SCH (22:04)
[2021-02-25 06:28] LABS: Basophils % 0.4 %; Eosinophils # 0.1 K/mcL (0.0-0.6); Eosinophils % 1.4 %; Hematocrit 32.9 % (35.3-44.9); Hemoglobin 10.2 g/dL (11.5-15.4); Immature Granulocytes % 0.2 % (0-4); Lymphocytes % 17.6 %; Mean Corpuscular Hemoglobin 28.7 pg (28.0-33.3); Mean Corpuscular Volume 92.7 fL (83.0-100.0); Mean Platelet Volume 10.6 fL (9.4-12.4); Monocytes # 0.6 K/mcL (0.0-1.3); Monocytes % 10.8 %; Neutrophils # 3.9 K/mcL (1.6-8.9); Platelet Count 172 K/mcL (140-400); Red Blood Count 3.55 M/mcL (3.82-4.97); Red Cell Distribution Width 16.7 % (11.5-14.5); Segmented Neutrophils % 69.6 %; White Blood Count 5.6 K/mcL (4.3-11.1)
[2021-02-25 06:32] LABS: INR 1.2; Prothrombin Time 13.2 Seconds (9.4-12.1)
[2021-02-25 06:46] LABS: BUN/Creatinine Ratio 33 (6-26); Blood Urea Nitrogen 21 mg/dL (8-23); Calcium 8.3 mg/dL (8.6-10.3); Carbon Dioxide 33 mEq/L (23-29); Chloride 100 mEq/L (98-107); Glucose 107 mg/dL (70-105); Osmolality,Calculated 289 (280-300); Potassium 3.8 mEq/L (3.5-5.1); Sodium 138 mEq/L (136-145); eGFR For African Americans > 60 (> 60); eGFR For Non-African Americans > 60 (> 60)
[2021-02-25] MEDS: Apixaban 5 MG TABLET PO SCH (07:37)
[2021-02-25 07:44] VITALS: BP 96/44; PULSE 81; TEMP 97.7; O2SAT 96
[2021-02-25] MEDS ORDERED: Vitamin B Complex/Vit C/Vit E 1 EACH TABLET PO SCH (09:00)
[2021-02-25] MEDS ORDERED: Furosemide 40 MG TABLET PO SCH (09:00)
[2021-02-25] MEDS ORDERED: *HR* Digoxin 0.125 MG TABLET PO SCH (09:00)
== END 2021-02-25 11:42 | disposition home or self-care (01) | DRG 274 ==
LOC: INVDIALAB 06:48 → 2NENU 13:45
PROVIDERS: ADMIT Internal Medicine Clinical Cardiac Electrophysiology; ATTEND Internal Medicine Clinical Cardiac Electrophysiology

== ENCOUNTER 2021-03-24 20:20 | Inpatient (IN) ==
[2021-03-24 22:18] LABS: Basophils % 0.7 %; Eosinophils # 0.2 K/mcL (0.0-0.6); Eosinophils % 4.5 %; Hematocrit 34.1 % (35.3-44.9); Hemoglobin 10.7 g/dL (11.5-15.4); Immature Granulocytes % 0.2 % (0-4); Lymphocytes # 0.6 K/mcL (0.6-4.6); Lymphocytes % 13.1 %; Mean Corpuscular HGB Conc 31.4 g/dL (31.6-35.5); Mean Corpuscular Hemoglobin 29.1 pg (28.0-33.3); Mean Corpuscular Volume 92.7 fL (83.0-100.0); Mean Platelet Volume 9.1 fL (9.4-12.4); Monocytes # 0.9 K/mcL (0.0-1.3); Monocytes % 20.5 %; Neutrophils # 2.6 K/mcL (1.6-8.9); Platelet Count 190 K/mcL (140-400); Red Blood Count 3.68 M/mcL (3.82-4.97); Red Cell Distribution Width 14.1 % (11.5-14.5); White Blood Count 4.2 K/mcL (4.3-11.1)
[2021-03-24 22:38] LABS: Alanine Aminotransferase 7 Units/L (7-52); Albumin 3.6 g/dL (3.5-5.7); Albumin/Globulin Ratio 1.4 (1.1-2.2); Alkaline Phosphatase 54 Units/L (34-104); Amylase 43 Units/L (29-103); Aspartate Amino Transferase 13 Units/L (13-39); BUN/Creatinine Ratio 34 (6-26); Bilirubin,Total 0.6 mg/dL (0.3-1.0); Blood Urea Nitrogen 24 mg/dL (8-23); Calcium 8.5 mg/dL (8.6-10.3); Carbon Dioxide 38 mEq/L (23-29); Chloride 97 mEq/L (98-107); Globulin 2.5 g/dL (2.4-3.5); Glucose 123 mg/dL (70-105); Lipase 14 Units/L (11-82); Osmolality,Calculated 295 (280-300); Potassium 3.3 mEq/L (3.5-5.1); Sodium 140 mEq/L (136-145); Total Protein 6.1 g/dL (6.4-8.9); eGFR For African Americans > 60 (> 60); eGFR For Non-African Americans > 60 (> 60)
[2021-03-24 23:00] LABS: Platelet Estimate Normal (Normal)
[2021-03-24] MEDS ORDERED: Isovue-370 500 ML BOTTLE IVP ONE (23:13)
[2021-03-24 23:36] LABS: Bacteria,Urine Few per hpf (None-Few); Bilirubin,Urine Negative (Negative); Blood,Urine Negative (Negative); Clarity,Urine Turbid (Clear); Color,Urine Yellow (Yellow); Glucose,Urine (UA) Normal (Normal); Ketones,Urine Negative (Negative); Leukocyte Esterase,Urine Large (Negative); Mucus,Urine Few per lpf (None-Few); Nitrite,Urine Negative (Negative); PH,Urine 6.5 pH Units (5.0-8.0); Protein,Urine 70 mg/dL (Neg-Trace); RBC,Urine 0-3 per hpf (0-3); Renal Epithelial Cells,Urine Few per hpf (None-Few); Specific Gravity,Urine 1.027 (1.010-1.025); Squamous Epithelial Cell,Urine Many per hpf (None-Few); Transitional Epi Cells,Urine Few per hpf (None-Few); Urobilinogen,Urine Normal (Normal)
[2021-03-25] MEDS ORDERED: Pantoprazole 40 MG VIAL IVP ONE ×2 (01:38→08:00)
[2021-03-25] MEDS ORDERED: 0.9 % Sodium Chloride 1,000 ML IV ONE (01:39)
[2021-03-25] MEDS ORDERED: Naloxone 0.4 MG/ML INJ IVP PRN (03:04)
[2021-03-25] MEDS ORDERED: *HR* HYDROcodone/Acet 5/325 mg TABLET PO PRN (03:04)
[2021-03-25] MEDS ORDERED: *HR* Promethazine 25 MG/ML VIAL IM PRN (03:04)
[2021-03-25] MEDS ORDERED: *HR* Dextrose 50 % in Water (Syg) 50 ML SYRINGE IVP PRN (03:05)
[2021-03-25] MEDS ORDERED: D5% in Water 1,000 ML IVC PRN (03:05)
[2021-03-25] MEDS ORDERED: Dextrose Gel 15 GM/37.5 ML TUBE PO PRN ×2 (03:05)
[2021-03-25] MEDS: 0.9 % Sodium Chloride 1,000 ML IVC SCH (03:30)
[2021-03-25] MEDS: Pantoprazole 40 MG in 0.9 % Sodium Chloride Mini Bag 100 ML IVC SCH ×2 (04:26→13:50)
[2021-03-25 05:08] LABS: Basophils % 0.8 %; Eosinophils # 0.2 K/mcL (0.0-0.6); Hematocrit 36.2 % (35.3-44.9); Hemoglobin 11.3 g/dL (11.5-15.4); Immature Granulocytes % 0.3 % (0-4); Lymphocytes # 0.6 K/mcL (0.6-4.6); Lymphocytes % 17.5 %; Mean Corpuscular HGB Conc 31.2 g/dL (31.6-35.5); Mean Corpuscular Hemoglobin 29.4 pg (28.0-33.3); Mean Platelet Volume 9.7 fL (9.4-12.4); Monocytes # 0.7 K/mcL (0.0-1.3); Monocytes % 18.7 %; Neutrophils # 2.1 K/mcL (1.6-8.9); Platelet Count 205 K/mcL (140-400); Red Blood Count 3.85 M/mcL (3.82-4.97); Red Cell Distribution Width 14.3 % (11.5-14.5); Segmented Neutrophils % 57.7 %; White Blood Count 3.6 K/mcL (4.3-11.1)
[2021-03-25 05:21] LABS: BUN/Creatinine Ratio 31 (6-26); Blood Urea Nitrogen 20 mg/dL (8-23); Calcium 8.1 mg/dL (8.6-10.3); Carbon Dioxide 34 mEq/L (23-29); Chloride 97 mEq/L (98-107); Glucose 93 mg/dL (70-105); Magnesium 2.5 mg/dL (1.6-2.6); Osmolality,Calculated 286 (280-300); Phosphorous 1.8 mg/dL (2.7-4.5); Potassium 3.2 mEq/L (3.5-5.1); Sodium 137 mEq/L (136-145); eGFR For African Americans > 60 (> 60); eGFR For Non-African Americans > 60 (> 60)
[2021-03-25] MEDS: Acetaminophen 325 MG TABLET PO PRN (05:37)
[2021-03-25 06:40] LABS: Platelet Estimate Normal (Normal)
[2021-03-25] MEDS ORDERED: Potassium Phosphate 44 MEQ in 0.9 % Sodium Chloride 250 ML IVPB ONE (07:05)
[2021-03-25] MEDS: Calcium Gluconate 1gm/50mL 1 GM/50 ML BAG IVPB SCH ×2 (07:43→08:50)
[2021-03-25 09:07] LABS: % Iron Saturation 10 % (15-50); Iron 24 mcg/dL (50-170); Transferrin 167 mg/dL (203-362)
[2021-03-25 09:19] LABS: INR 1.2; Prothrombin Time 13.6 Seconds (9.4-12.1)
[2021-03-25 09:25] LABS: Ferritin 231 ng/mL (10-120)
[2021-03-25 11:41] LABS: Folate 6.1 ng/mL (3.0-16.0)
[2021-03-25 11:54] LABS: Vitamin B12 > 1500 pg/mL (250-1100)
[2021-03-25] MEDS: Morphine Sulfate 2 MG/ML SYRINGE IVP PRN ×2 (14:34→20:10)
[2021-03-25] MEDS: Mag Hydrox/Al Hydrox/Simeth 30 ML UDC PO SCH ×2 (17:05→23:27)
[2021-03-25] MEDS: Pantoprazole 40 MG VIAL IVP SCH (17:06)
[2021-03-25] MEDS: Lidocaine Viscous Oral Soln 15 ML SOLUTION MM SCH (22:12)
[2021-03-26] MEDS: Morphine Sulfate 2 MG/ML SYRINGE IVP PRN ×4 (03:29→23:29)
[2021-03-26] MEDS: 0.9 % Sodium Chloride 1,000 ML IVC SCH (03:32)
[2021-03-26] MEDS: Pantoprazole 40 MG VIAL IVP SCH ×2 (05:25→18:10)
[2021-03-26] MEDS: Mag Hydrox/Al Hydrox/Simeth 30 ML UDC PO SCH ×4 (05:25→23:27)
[2021-03-26] MEDS: Lidocaine Viscous Oral Soln 15 ML SOLUTION MM SCH ×2 (09:12→20:27)
[2021-03-26] MEDS ORDERED: *HR* Metoprolol 5 MG/5 ML VIAL IVP ONE (13:12)
[2021-03-26] MEDS: *HR* Digoxin 0.125 MG TABLET PO SCH (13:50)
[2021-03-27 01:55] LABS: Hematocrit 32.8 % (35.3-44.9); Hemoglobin 10.3 g/dL (11.5-15.4); Mean Corpuscular HGB Conc 31.4 g/dL (31.6-35.5); Mean Corpuscular Hemoglobin 29.3 pg (28.0-33.3); Mean Corpuscular Volume 93.2 fL (83.0-100.0); Mean Platelet Volume 9.9 fL (9.4-12.4); Platelet Count 196 K/mcL (140-400); Red Blood Count 3.52 M/mcL (3.82-4.97); Red Cell Distribution Width 14.3 % (11.5-14.5); White Blood Count 4.3 K/mcL (4.3-11.1)
[2021-03-27 02:19] LABS: BUN/Creatinine Ratio 26 (6-26); Blood Urea Nitrogen 11 mg/dL (8-23); Calcium 7.5 mg/dL (8.6-10.3); Carbon Dioxide 29 mEq/L (23-29); Chloride 105 mEq/L (98-107); Glucose 119 mg/dL (70-105); Osmolality,Calculated 287 (280-300); Potassium 3.8 mEq/L (3.5-5.1); Sodium 138 mEq/L (136-145); eGFR For African Americans > 60 (> 60); eGFR For Non-African Americans > 60 (> 60)
[2021-03-27] MEDS: Morphine Sulfate 2 MG/ML SYRINGE IVP PRN (05:36)
[2021-03-27] MEDS: Mag Hydrox/Al Hydrox/Simeth 30 ML UDC PO SCH (05:41)
[2021-03-27] MEDS: Pantoprazole 40 MG VIAL IVP SCH ×2 (05:42→17:01)
[2021-03-27] MEDS: *HR* Digoxin 0.125 MG TABLET PO SCH (08:12)
[2021-03-27] MEDS: Cyanocobalamin (B-12) 1,000 MCG TABLET PO SCH (08:12)
[2021-03-27] MEDS ORDERED: Aspirin Enteric Coated 81 MG Tablet PO SCH (09:00)
[2021-03-27] MEDS: Lidocaine Viscous Oral Soln 15 ML SOLUTION MM SCH (10:50)
[2021-03-27] MEDS: Apixaban 2.5 MG TABLET PO SCH ×2 (10:50→21:14)
[2021-03-27] MEDS ORDERED: LIDOCAINE VISCOUS PO SCH (13:00)
[2021-03-27] MEDS ORDERED: DIPHENHYDRAMINE PO SCH (13:00)
[2021-03-27] MEDS ORDERED: [UNRECOGNIZED DRUG - OTHER] PO SCH (13:00)
[2021-03-27] MEDS: [UNRECOGNIZED DRUG - OTHER] PO SCH ×2 (17:01→21:15)
[2021-03-28] MEDS: Acetaminophen 325 MG TABLET PO PRN (01:55)
[2021-03-28] MEDS ORDERED: *HR* Metoprolol 5 MG/5 ML VIAL IVP ONE (02:59)
[2021-03-28] MEDS: Pantoprazole 40 MG VIAL IVP SCH ×2 (05:55→16:57)
[2021-03-28] MEDS: Cyanocobalamin (B-12) 1,000 MCG TABLET PO SCH (08:08)
[2021-03-28] MEDS: *HR* Digoxin 0.125 MG TABLET PO SCH (08:08)
[2021-03-28] MEDS: Apixaban 2.5 MG TABLET PO SCH ×2 (08:08→20:32)
[2021-03-28] MEDS: [UNRECOGNIZED DRUG - OTHER] PO SCH ×4 (08:17→20:51)
[2021-03-29] MEDS: Pantoprazole 40 MG VIAL IVP SCH ×2 (05:39→17:15)
[2021-03-29] MEDS: *HR* Digoxin 0.125 MG TABLET PO SCH (07:42)
[2021-03-29] MEDS: [UNRECOGNIZED DRUG - OTHER] PO SCH ×4 (07:42→20:53)
[2021-03-29] MEDS: Cyanocobalamin (B-12) 1,000 MCG TABLET PO SCH (07:42)
[2021-03-29] MEDS: Apixaban 2.5 MG TABLET PO SCH ×2 (07:42→20:51)
[2021-03-30 03:49] VITALS: O2SAT 100
[2021-03-30] MEDS: Pantoprazole 40 MG VIAL IVP SCH (05:32)
[2021-03-30 06:49] VITALS: PULSE 62; TEMP 97.6
[2021-03-30 07:22] VITALS: BP 109/65
[2021-03-30] MEDS: *HR* Digoxin 0.125 MG TABLET PO SCH (07:24)
[2021-03-30] MEDS: [UNRECOGNIZED DRUG - OTHER] PO SCH (07:43)
[2021-03-30] MEDS: Cyanocobalamin (B-12) 1,000 MCG TABLET PO SCH (07:44)
[2021-03-30] MEDS: Apixaban 2.5 MG TABLET PO SCH (07:44)
== END 2021-03-30 10:35 | disposition home health service (06) | DRG 380 ==
LOC: 4WAOSI 20:20 → EMEROOARM 20:20 → SUATTDRO 03-25 02:38 → 4WAOSI 03-25 02:54 → 3BNU 03-25 16:57
PROVIDERS: ADMIT Internal Medicine; ATTEND Internal Medicine
PROC: ENDOEBX (2021-03-25 12:30)